=== PATIENT | male | born 1945 | race Caucasian/White ===

== ENCOUNTER 2017-06-22 19:30 | Inpatient (IN) | payer MEDICARE, OTHER ==
[~2017-06-22] VITALS: Ht 185.4 cm; Wt 112.2 kg
[~2017-06-22 19:30] MED LIST: ACET325T9 PO; ASPI-482 PO; CYAN1TAB20 SL; FERR325T3 PO; LISI-338 PO; METH4TAB7 PO; [UNRECOGNIZED DRUG - OTHER]
--- NOTE | 2017-06-22 19:35 | ED.ADGEN ---
Past History Past Medical History: Dementia, Depression, Hypertension Past Surgical History: Other Smoking: Non-smoker Alcohol Use: None Drug Use: None Adult General Chief Complaint Chief Complaint " I don't know.. they sent me here ... to get checked.." HPI HPI Patient is a 71 year old MALE who presents with above hx and complaints per his NH that he having mental status change, agitation, refusing meds. threats to hang himself or cut his throat and increased depression. No hx of recent falls. [facility] . Review of Systems Review of Systems No complaints Constitutional: Denies fever or chills [] Eyes: Denies change in visual acuity, redness, or eye pain [] HENT: Denies nasal congestion or sore throat [] Respiratory: Denies cough or shortness of breath [] Cardiovascular: No additional information not addressed in HPI [] GI: Denies abdominal pain, nausea, vomiting, bloody stools or diarrhea [] : Denies dysuria or hematuria [] Musculoskeletal: Denies back pain or joint pain [] Integument: Denies rash or skin lesions [] Neurologic: Denies headache, focal weakness or sensory changes [] Endocrine: Denies polyuria or polydipsia [] All other systems were reviewed and found to be within normal limits, except as documented in this note. Family History Family History Not currently available Current Medications Current Medications See Nursing for NH meds Allergies Allergies Allergies Coded Allergies Type Severity Reaction Last Updated Verified No Known Drug Allergies 06/24/13 No Physical Exam Physical Exam Constitutional: no acute distress, non-toxic appearance. [] HENT: Normocephalic, atraumatic, bilateral external ears normal, oropharynx moist, no oral exudates, nose normal. [] Eyes: PERRLA, EOMI, conjunctiva normal, no discharge. [] Neck: Normal range of motion, no tenderness, supple, no stridor. [] Cardiovascular:Heart rate regular rhythm, no murmur [] Lungs & Thorax: Bilateral breath sounds clear to auscultation [] Abdomen: Bowel sounds normal, soft, no tenderness, no masses, no pulsatile masses. [] Skin: Warm, dry, no erythema, no rash. [] Back: No tenderness, no CVA tenderness. [] Extremities: No tenderness, no cyanosis, no clubbing, ROM intact, no edema. [] Arthritic changes Neurologic: Alert and oriented , slow to respond to questions, no gross motor function or sensory function deficits from base line per NH, no focal deficits noted. [] Psychologic: Affect anxious, judgement lacks insight, mood depressed. Current Patient Data Vital Signs Vital Signs Date Time Temp Pulse Resp B/P (MAP) Pulse Ox O2 Delivery O2 Flow Rate FiO2 06/22/17 21:00 72 18 131/63 (85) 97 Room Air 06/22/17 19:52 97.8 Lab Results Laboratory Tests Test 06/22/17 19:55 06/22/17 20:35 White Blood Count 9.1 x10^3/uL (4.0-11.0) Red Blood Count 4.76 x10^6/uL (4.30-5.70) Hemoglobin 13.7 g/dL (13.0-17.5) Hematocrit 41.2 % (39.0-53.0) Mean Corpuscular Volume 87 fL (79-100) Mean Corpuscular Hemoglobin 29 pg (25-35) Mean Corpuscular Hemoglobin Concent 33 g/dL (31-37) Red Cell Distribution Width 14.7 % (11.5-14.5) H Platelet Count 256 x10^3/uL (140-400) Neutrophils (%) (Auto) 60 % (31-73) Lymphocytes (%) (Auto) 28 % (24-48) Monocytes (%) (Auto) 10 % (0-9) H Eosinophils (%) (Auto) 1 % (0-3) Basophils (%) (Auto) 1 % (0-3) Neutrophils # (Auto) 5.4 x10^3uL (1.8-7.7) Lymphocytes # (Auto) 2.5 x10^3/uL (1.0-4.8) Monocytes # (Auto) 0.9 x10^3/uL (0.0-1.1) Eosinophils # (Auto) 0.1 x10^3/uL (0.0-0.7) Basophils # (Auto) 0.1 x10^3/uL (0.0-0.2) Sodium Level 135 mmol/L (136-145) L Potassium Level 5.0 mmol/L (3.5-5.1) Chloride Level 101 mmol/L (98-107) Carbon Dioxide Level 23 mmol/L (21-32) Anion Gap 11 (6-14) Blood Urea Nitrogen 67 mg/dL (8-26) H Creatinine 1.7 mg/dL (0.7-1.3) H Estimated GFR (Cockcroft-Gault) 39.8 Glucose Level 128 mg/dL (70-99) H Calcium Level 9.8 mg/dL (8.5-10.1) Magnesium Level 1.8 mg/dL (1.8-2.4) Total Bilirubin 0.5 mg/dL (0.2-1.0) Direct Bilirubin 0.1 mg/dL (0.0-0.2) Aspartate Amino Transferase (AST) 14 U/L (15-37) L Alanine Aminotransferase (ALT) 21 U/L (16-63) Alkaline Phosphatase 76 U/L (46-116) Troponin I Quantitative < 0.017 ng/mL (0-0.055) TN-Pww-M-Type Natriuretic Peptide 103 pg/mL (0-124) Total Protein 8.1 g/dL (6.4-8.2) Albumin 3.7 g/dL (3.4-5.0) Urine Collection Type Unknown Urine Color Yellow Urine Clarity Clear Urine pH 5.0 Urine Specific [place] 1.015 Urine Protein Neg (NEG-TRACE) Urine Glucose (UA) Neg mg/dL (NEG) Urine Ketones (Stick) Neg mg/dL (NEG) Urine Blood Neg (NEG) Urine Nitrite Neg (NEG) Urine Bilirubin Neg (NEG) Urine Urobilinogen Dipstick 0.2 mg/dL (0.2 mg/dL) Urine Leukocyte Esterase Neg (NEG) Urine RBC 1-2 /HPF (0-2) Urine WBC Occ /HPF (0-4) Urine Squamous Epithelial Cells Few /LPF Urine Bacteria 0 /HPF (0-FEW) Urine Hyaline Casts Mod /HPF Urine Mucus Mod /LPF Urine Opiates Screen Neg (NEG) Urine Methadone Screen Neg (NEG) Urine Barbiturates Neg (NEG) Urine Phencyclidine Screen Neg (NEG) Urine Amphetamine/Methamphetamine Neg (NEG) Urine Benzodiazepines Screen Neg (NEG) Urine Cocaine Screen Neg (NEG) Urine Cannabinoids Screen Neg (NEG) Urine Ethyl Alcohol Neg (NEG) EKG EKG My interpretation of EKG shows a sinus rhythm with leftward axis and incomplete right bundle branch block. Nonspecific anterior septal changes.[] Radiology/Procedures Radiology/Procedures My interpretation of CXR shows Cardiomegaly, atelectasis, DJD[] Course & Med Decision Making Course & Med Decision Making Pertinent Labs and Imaging studies reviewed. (See chart for details) Pt. to be admitted to Dr. Rubio. [facility] [] Final Impression Final Impression 1. Mental status change 2. Depression 3. Suicidal ideation 4. Autism 5. Hypertension 6. History of prostate cancer 7. Agitation 8. Dehydration Problems: Dragon Disclaimer Dragon Disclaimer This electronic medical record was generated, in whole or in part, using a voice recognition dictation system. GERALD CUBA MD Jun 22, 2017 19:35
[2017-06-22 20:24] LABS: BASO # 0.1 x10^3/uL (0.0-0.2); BASO % 1 % (0-3); EOS # 0.1 x10^3/uL (0.0-0.7); EOS % 1 % (0-3); HEMATOCRIT 41.2 % (39.0-53.0); HEMOGLOBIN 13.7 g/dL (13.0-17.5); LYMPH # 2.5 x10^3/uL (1.0-4.8); LYMPH % 28 % (24-48); MEAN CORPUSCULAR HEMOGLOBIN 29 pg (25-35); MEAN CORPUSCULAR HGB CONC 33 g/dL (31-37); MEAN CORPUSCULAR VOLUME 87 fL (79-100); MONO # 0.9 x10^3/uL (0.0-1.1); MONO % 10 % (0-9); NEUT # 5.4 x10^3uL (1.8-7.7); NEUT % 60 % (31-73); PLATELET COUNT 256 x10^3/uL (140-400); RED BLOOD COUNT 4.76 x10^6/uL (4.30-5.70); RED CELL DISTRIBUTION WIDTH 14.7 % (11.5-14.5); WHITE BLOOD COUNT 9.1 x10^3/uL (4.0-11.0)
[2017-06-22 20:37] LABS: ALBUMIN 3.7 g/dL (3.4-5.0); CALCIUM 9.8 mg/dL (8.5-10.1); CREATININE 1.7 mg/dL (0.7-1.3); DIRECT BILIRUBIN 0.1 mg/dL (0.0-0.2); GFR 39.8; MAGNESIUM 1.8 mg/dL (1.8-2.4); TOTAL BILIRUBIN 0.5 mg/dL (0.2-1.0); TOTAL PROTEIN 8.1 g/dL (6.4-8.2)
[2017-06-22 21:13] LABS: AMPHETAMINE/METHAMPHETAMINE NEG (NEG); BARBITURATES NEG (NEG); BENZODIAZEPINES NEG (NEG); CANNABINOIDS NEG (NEG); COCAINE NEG (NEG); METHADONE NEG (NEG); OPIATES NEG (NEG); PHENCYCLIDINE NEG (NEG)
[2017-06-22 21:24] LABS: BILIRUBIN,URINE NEG (NEG); CLARITY,URINE CLEAR; COLOR,URINE YELLOW; GLUCOSE,URINE NEG (NEG)
[2017-06-22 21:25] LABS: BACTERIA,URINE 0 /HPF (0-FEW); HYALINE CASTS, URINE MOD /HPF; NITRITE,URINE NEG (NEG); SQUAMOUS EPITHELIAL CELL,UR FEW /LPF; UROBILINOGEN,URINE 0.2 mg/dL (0.2 mg/dL); WBC,URINE OCC /HPF (0-4)
[2017-06-22] MEDS ORDERED: CETI10TA22 PO (22:16)
[2017-06-22] MEDS ORDERED: POTA10CA PO (22:16)
[2017-06-22] MEDS ORDERED: SERT50TA PO (22:16)
[2017-06-22] MEDS ORDERED: METO-239 PO (22:16)
[2017-06-22] MEDS ORDERED: CHOL20002 PO (22:16)
[2017-06-22] MEDS ORDERED: ACET325T9 PO (22:16)
[2017-06-22] MEDS ORDERED: LISI-334 PO (22:16)
[2017-06-22] MEDS ORDERED: BISA10SU2 RC (22:16)
[2017-06-22] MEDS ORDERED: MAGN2400 PO (22:16)
[2017-06-22] MEDS ORDERED: SIMV20TA3 PO (22:16)
[2017-06-22] MEDS ORDERED: FLUO20CA16 PO (22:16)
[2017-06-22] MEDS ORDERED: ATOR10TA60 PO (22:16)
[2017-06-22] MEDS ORDERED: MAG30ORA PO (22:16)
[2017-06-22] MEDS ORDERED: MIRA50TA PO (22:16)
[2017-06-22] MEDS ORDERED: CALC500T13 PO (22:16)
[2017-06-22] MEDS ORDERED: HYDR25TA9 PO (22:16)
[2017-06-22] MEDS ORDERED: TRAZ-90 PO (22:16)
[2017-06-22] MEDS ORDERED: METHYL SALICYLATE/MENTHOL TOPICAL OINTMENT 29GM TUBE. TP PRN (22:45)
[2017-06-22] MEDS ORDERED: MAG HYDROX/AL HYDROX/SIMETH 30 ML ORAL.SUSP PO PRN (22:45)
[2017-06-22] MEDS ORDERED: MAGNESIUM HYDROXIDE 2,400 MG/30 ML ORAL.SUSP. PO PRN (22:45)
[2017-06-22] MEDS ORDERED: BISACODYL 10 MG SUPP.RECT RC PRN (23:00)
[2017-06-22] MEDS ORDERED: ACETAMINOPHEN 325 MG TABLET PO PRN (23:00)
[2017-06-22] MEDS ORDERED: MAG HYDROX PO PRN (23:00)
[2017-06-22] MEDS ORDERED: NON FORMULARY ITEM (Magnesium Hydroxide (Milk Of Magnesia) 2,400 MG) PO PRN (23:00)
[2017-06-22] MEDS ORDERED: SIMETH PO PRN (23:00)
[2017-06-22] MEDS ORDERED: AL HYDROX PO PRN (23:00)
[2017-06-22 23:16] VITALS: BP 131/69
--- NOTE | 2017-06-22 23:19 | EKG ---
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
[2017-06-23 05:47] VITALS: BP 97/58
--- NOTE | 2017-06-23 07:25 | RAD ---
Single view chest 06/22/2017 Clinical indication: Mental status change, shortness of air. Comparison: Single view chest 06/24/2013. Findings: Mild enlargement of the cardiac silhouette without pulmonary venous congestion. Mild bibasilar atelectasis or scarring. No pleural effusion or pneumothorax. Impression: Stable examination of the chest with cardiomegaly and bibasilar atelectasis or scarring.
[2017-06-23] MEDS: POTASSIUM CHLORIDE 10 MEQ TABLET.ER. PO SCH (08:10)
[2017-06-23] MEDS: LISINOPRIL 20 MG TABLET PO SCH ×2 (08:11→20:07)
[2017-06-23] MEDS: METOPROLOL TART IMMED RELEASE 25 MG TABLET PO SCH ×2 (08:11→20:06)
[2017-06-23] MEDS: hydroCHLOROthiazide 25 MG TABLET PO SCH (08:12)
[2017-06-23] MEDS: CHOLECALCIFEROL (VITAMIN D3) 1,000 UNIT TABLET PO SCH (08:15)
[2017-06-23] MEDS: ACETAMINOPHEN 325 MG TABLET PO SCH (08:15)
[2017-06-23] MEDS: CALCIUM CARBONATE 500 MG TABLET PO SCH (08:15)
[2017-06-23] MEDS: MIRABEGRON 25 MG TAB.ER.24H PO SCH (08:55)
[2017-06-23] MEDS ORDERED: FLUoxetine HCL 20 MG CAPSULE PO SCH (09:00)
[2017-06-23] MEDS ORDERED: PNEUMOC CONJ VACC 13-VALENT 0.5 ML DISP.SYRIN. VAX IM ONE (09:00)
[2017-06-23] MEDS ORDERED: FLU VACC QS2017-18 (36MOS+)/PF 0.5 ML SYRINGE. VAX IM ONE (09:00)
[2017-06-23] MEDS ORDERED: SERTRALINE 50 MG TABLET. PO SCH (09:00)
[2017-06-23] MEDS ORDERED: PNEUMOC CONJ VACC 23-VALENT 0.5 ML VIAL. VAX IM ONE (09:00)
[2017-06-23 16:17] VITALS: BP 130/55
[2017-06-23 20:08] LABS: HEMOGLOBIN A1C 5.8 % (4.8-5.6); THYROXINE 9.1 ug/dL (4.5-12.0)
[2017-06-23] MEDS: ATORVASTATIN CALCIUM 10 MG TABLET. PO SCH (20:10)
[2017-06-23] MEDS: CETIRIZINE HCL 10 MG TABLET PO SCH (20:10)
[2017-06-23] MEDS: traZODone 100 MG TABLET. PO SCH (20:10)
--- NOTE | 2017-06-23 20:13 | PDOC ---
Exam Note: Brian Note: Please also refer to the separate dictated note~for this date of service dictated separately.~Patient seen individually. Discussed the patient with Nursing staff reviewed the chart.~Reviewed interim history and current functioning. Reviewed vital signs,~Labs/ Radiology~and current medications noted below. Continue current treatment with the changes noted in the dictated addendum note Assessment: Vital Signs: Vital Signs Date Time Temp Pulse Resp B/P (MAP) Pulse Ox O2 Delivery O2 Flow Rate FiO2 06/23/17 20:07 106 97/57 06/23/17 16:17 97.6 18 95 Room Air I&O Intake and Output 06/23/17 07:00 # Bowel Movements 1 Labs: Laboratory Tests Test 06/22/17 20:35 Urine Collection Type Unknown Urine Color Yellow Urine Clarity Clear Urine pH 5.0 Urine Specific [place] 1.015 Urine Protein Neg (NEG-TRACE) Urine Glucose (UA) Neg mg/dL (NEG) Urine Ketones (Stick) Neg mg/dL (NEG) Urine Blood Neg (NEG) Urine Nitrite Neg (NEG) Urine Bilirubin Neg (NEG) Urine Urobilinogen Dipstick 0.2 mg/dL (0.2 mg/dL) Urine Leukocyte Esterase Neg (NEG) Urine RBC 1-2 /HPF (0-2) Urine WBC Occ /HPF (0-4) Urine Squamous Epithelial Cells Few /LPF Urine Bacteria 0 /HPF (0-FEW) Urine Hyaline Casts Mod /HPF Urine Mucus Mod /LPF Urine Opiates Screen Neg (NEG) Urine Methadone Screen Neg (NEG) Urine Barbiturates Neg (NEG) Urine Phencyclidine Screen Neg (NEG) Urine Amphetamine/Methamphetamine Neg (NEG) Urine Benzodiazepines Screen Neg (NEG) Urine Cocaine Screen Neg (NEG) Urine Cannabinoids Screen Neg (NEG) Urine Ethyl Alcohol Neg (NEG) Current Medications: Meds: Current Medications Acetaminophen (Tylenol) 650 mg PRN Q6HRS PRN PO PAIN / TEMP; Start 06/22/17 at 22:45 Multi-Ingredient Ointment (Analgesic [place]) 1 kermit PRN QID PRN TP MUSCLE PAIN; Start 06/22/17 at 22:45 Al Hydroxide/Mg Hydroxide (Mylanta Plus Xs) 15 ml PRN AFTMEALHC PRN PO DYSPEPSIA; Start 06/22/17 at 22:45 Magnesium Hydroxide (Milk Of Magnesia) 2,400 mg PRN QHS PRN PO CONSTIPATION; Start 06/22/17 at 22:45 Fluoxetine HCl (PROzac) 20 mg DAILY PO Last administered on 06/23/17at 08:15; Start 06/23/17 at 09:00; Stop 06/23/17 at 19:29; Status DC Sertraline HCl (Zoloft) 50 mg DAILY PO Last administered on 06/23/17at 08:11; Start 06/23/17 at 09:00; Stop 06/23/17 at 19:29; Status DC Trazodone HCl (Desyrel) 100 mg HS PO Last administered on 06/23/17at 20:10; Start 06/23/17 at 21:00 Acetaminophen (Tylenol) 650 mg DAILY PO Last administered on 06/23/17at 08:15; Start 06/23/17 at 09:00 Acetaminophen (Tylenol) 650 mg PRN Q4HRS PRN PO PAIN / TEMP; Start 06/22/17 at 23:00; Status UNV Atorvastatin Calcium (Lipitor) 10 mg QHS PO Last administered on 06/23/17at 20: 10; Start 06/23/17 at 21:00 Bisacodyl (Dulcolax Supp) 10 mg PRN DAILY PRN RC CONSTIPATION; Start 06/22/17 at 23:00 Calcium Carbonate/ Glycine (Oscal) 1,000 mg DAILY PO Last administered on at 08:15; Start 06/23/17 at 09:00 Cetirizine HCl (ZyrTEC) 10 mg HS PO Last administered on 06/23/17at 20:10; Start 06/23/17 at 21:00 Hydrochlorothiazide (Hydrodiuril) 25 mg DAILY PO ; Start 06/23/17 at 09:00 Lisinopril (Prinivil) 20 mg BID PO ; Start 06/23/17 at 09:00 Metoprolol Tartrate (Lopressor) 12.5 mg BID PO ; Start 06/23/17 at 09:00 Simvastatin (Zocor) 20 mg HS PO ; Start 06/23/17 at 21:00; Status UNV Vitamin D (Vitamin D3) 2,000 unit DAILY PO Last administered on 06/23/17at 08:15 ; Start 06/23/17 at 09:00 Non-Formulary Medication 30 ml PRN Q4HRS PRN PO DYSPEPSIA; Start 06/22/17 at 23 :00; Status UNV Non-Formulary Medication 2,400 mg PRN DAILY PRN PO CONSTIPATION; Start at 23:00; Status UNV Non-Formulary Medication 50 mg DAILY PO ; Start 06/23/17 at 09:00; Status UNV Potassium Chloride (Klor-Con) 10 meq DAILYWBKFT PO Last administered on at 08:10; Start 06/23/17 at 08:00 Influenza Virus Vaccine Quadrival (Fluarix Quad 1346-6016 Syringe) 0.5 ml ONCE ONCE VAX IM Last administered on 06/23/17at 09:50; Start 06/23/17 at 09:00; Stop 06/23/17 at 09:01; Status DC Pneumoccal 13-Valent Conj Vacc (Prevnar 13) 0.5 ml ONCE ONCE VAX IM ; Start at 09:00; Stop 06/23/17 at 09:01; Status UNV Pneumococcal Polyvalent Vaccine (Pneumovax 23) 0.5 ml ONCE ONCE VAX IM Last administered on 06/23/17at 09:51; Start 06/23/17 at 09:00; Stop 06/23/17 at 09:01 ; Status DC Duloxetine HCl (Cymbalta) 30 mg DAILY PO ; Start 06/24/17 at 09:00 Active Scripts Active Reported Milk Of Magnesia (Magnesium Hydroxide) 2,400 Mg/10 Ml Oral.susp 2,400 Mg PO PRN DAILY PRN Bisacodyl 10 Mg Supp.rect 10 Mg RC PRN DAILY PRN Mag-Al Plus Suspension (Mag Hydrox/Al Hydrox/Simeth) 30 Ml Oral.susp 30 Ml PO PRN Q4HRS PRN Tylenol (Acetaminophen) 325 Mg Tablet 650 Mg PO PRN Q4HRS PRN Metoprolol Succinate ( Xl ) (Metoprolol Succinate) 25 Mg Tab.er.24h 12.5 Mg PO BID Lisinopril 20 Mg Tablet 20 Mg PO BID Vitamin D-3 (Cholecalciferol (Vitamin D3)) 2,000 Unit Tablet 2,000 Unit PO DAILY Potassium Chloride 10 Meq Capsule.er 10 Meq PO DAILY Oyster Shell Calcium (Calcium Carbonate) 500 Mg Tablet 1,000 Mg PO DAILY Myrbetriq (Mirabegron) 50 Mg Tab.er.24h 50 Mg PO DAILY Hydrochlorothiazide Tablet (Hydrochlorothiazide) 25 Mg Tablet 25 Mg PO DAILY Atorvastatin Calcium 10 Mg Tablet 10 Mg PO QHS Zyrtec (Cetirizine Hcl) 10 Mg Tablet 10 Mg PO HS Simvastatin 20 Mg Tablet 20 Mg PO HS Trazodone Hcl 100 Mg Tablet 100 Mg PO HS Zoloft (Sertraline Hcl) 50 Mg Tablet 50 Mg PO DAILY Prozac (Fluoxetine Hcl) 20 Mg Capsule 20 Mg PO DAILY Tylenol (Acetaminophen) 325 Mg Tablet 650 Mg PO DAILY I have reviewed the current psychotropics carefully including drug interactions. Risk benefit ratio favors no change other than as noted in my dictated progress note. Diagnosis: Problems: (1) Depression (2) Benign essential hypertension (3) Anxiety disorder (4) Major depressive disorder, recurrent episode (5) Asperger's disorder NADIRA ELLIS MD Jun 23, 2017 20:13
[2017-06-23] MEDS ORDERED: SIMVASTATIN 20 MG TABLET PO SCH (21:00)
[2017-06-24 05:57] VITALS: BP 91/63
[2017-06-24] MEDS: ACETAMINOPHEN 325 MG TABLET PO SCH (08:11)
[2017-06-24] MEDS: CALCIUM CARBONATE 500 MG TABLET PO SCH (08:11)
[2017-06-24] MEDS: hydroCHLOROthiazide 25 MG TABLET PO SCH (08:11)
[2017-06-24] MEDS: CHOLECALCIFEROL (VITAMIN D3) 1,000 UNIT TABLET PO SCH (08:12)
[2017-06-24] MEDS: MIRABEGRON 25 MG TAB.ER.24H PO SCH (08:12)
[2017-06-24] MEDS: POTASSIUM CHLORIDE 10 MEQ TABLET.ER. PO SCH (08:12)
[2017-06-24] MEDS: LISINOPRIL 20 MG TABLET PO SCH (08:13)
[2017-06-24] MEDS: METOPROLOL TART IMMED RELEASE 25 MG TABLET PO SCH ×2 (08:13→19:48)
[2017-06-24] MEDS: DULoxetine HCL 30 MG CAPSULE.DR PO SCH (08:15)
[2017-06-24 16:17] VITALS: BP 94/57
[2017-06-24] MEDS ORDERED: CHOLECALCIFEROL (VITAMIN D3) 50,000 UNIT CAPSULE PO SCH (18:00)
[2017-06-24] MEDS: ATORVASTATIN CALCIUM 10 MG TABLET. PO SCH (19:47)
[2017-06-24] MEDS: CETIRIZINE HCL 10 MG TABLET PO SCH (19:47)
[2017-06-24] MEDS: traZODone 100 MG TABLET. PO SCH (19:47)
--- NOTE | 2017-06-24 20:35 | PDOC ---
Exam Note: Brian Note: Please also refer to the separate dictated note~for this date of service dictated separately.~Patient seen individually. Discussed the patient with Nursing staff reviewed the chart.~Reviewed interim history and current functioning. Reviewed vital signs,~Labs/ Radiology~and current medications noted below. Continue current treatment with the changes noted in the dictated addendum note Assessment: Vital Signs: Vital Signs Date Time Temp Pulse Resp B/P (MAP) Pulse Ox O2 Delivery O2 Flow Rate FiO2 06/24/17 16:17 98.0 82 18 94/57 (69) 92 06/23/17 16:17 Room Air I&O Intake and Output 06/24/17 07:00 Intake Total 720 ml Balance 720 ml Intake Oral 720 ml Current Medications: Meds: Current Medications Acetaminophen (Tylenol) 650 mg PRN Q6HRS PRN PO PAIN / TEMP; Start 06/22/17 at 22:45 Multi-Ingredient Ointment (Analgesic [place]) 1 kermit PRN QID PRN TP MUSCLE PAIN; Start 06/22/17 at 22:45 Al Hydroxide/Mg Hydroxide (Mylanta Plus Xs) 15 ml PRN AFTMEALHC PRN PO DYSPEPSIA; Start 06/22/17 at 22:45 Magnesium Hydroxide (Milk Of Magnesia) 2,400 mg PRN QHS PRN PO CONSTIPATION; Start 06/22/17 at 22:45 Fluoxetine HCl (PROzac) 20 mg DAILY PO Last administered on 06/23/17at 08:15; Start 06/23/17 at 09:00; Stop 06/23/17 at 19:29; Status DC Sertraline HCl (Zoloft) 50 mg DAILY PO Last administered on 06/23/17at 08:11; Start 06/23/17 at 09:00; Stop 06/23/17 at 19:29; Status DC Trazodone HCl (Desyrel) 100 mg HS PO Last administered on 06/24/17at 19:47; Start 06/23/17 at 21:00 Acetaminophen (Tylenol) 650 mg DAILY PO Last administered on 06/24/17at 08:11; Start 06/23/17 at 09:00 Acetaminophen (Tylenol) 650 mg PRN Q4HRS PRN PO PAIN / TEMP; Start 06/22/17 at 23:00; Status UNV Atorvastatin Calcium (Lipitor) 10 mg QHS PO Last administered on 06/24/17at 19: 47; Start 06/23/17 at 21:00 Bisacodyl (Dulcolax Supp) 10 mg PRN DAILY PRN RC CONSTIPATION; Start 06/22/17 at 23:00 Calcium Carbonate/ Glycine (Oscal) 1,000 mg DAILY PO Last administered on at 08:11; Start 06/23/17 at 09:00 Cetirizine HCl (ZyrTEC) 10 mg HS PO Last administered on 06/24/17at 19:47; Start 06/23/17 at 21:00 Hydrochlorothiazide (Hydrodiuril) 25 mg DAILY PO Last administered on at 08:11; Start 06/23/17 at 09:00 Lisinopril (Prinivil) 20 mg BID PO ; Start 06/23/17 at 09:00; Stop 06/24/17 at 18:04; Status DC Metoprolol Tartrate (Lopressor) 12.5 mg BID PO ; Start 06/23/17 at 09:00 Simvastatin (Zocor) 20 mg HS PO ; Start 06/23/17 at 21:00; Status UNV Vitamin D (Vitamin D3) 2,000 unit DAILY PO Last administered on 06/24/17at 08:12 ; Start 06/23/17 at 09:00 Non-Formulary Medication 30 ml PRN Q4HRS PRN PO DYSPEPSIA; Start 06/22/17 at 23 :00; Status UNV Non-Formulary Medication 2,400 mg PRN DAILY PRN PO CONSTIPATION; Start at 23:00; Status UNV Non-Formulary Medication 50 mg DAILY PO ; Start 06/23/17 at 09:00; Status UNV Potassium Chloride (Klor-Con) 10 meq DAILYWBKFT PO Last administered on at 08:12; Start 06/23/17 at 08:00 Influenza Virus Vaccine Quadrival (Fluarix Quad [id number] Syringe) 0.5 ml ONCE ONCE VAX IM Last administered on 06/23/17at 09:50; Start 06/23/17 at 09:00; Stop 06/23/17 at 09:01; Status DC Pneumoccal 13-Valent Conj Vacc (Prevnar 13) 0.5 ml ONCE ONCE VAX IM ; Start at 09:00; Stop 06/23/17 at 09:01; Status UNV Pneumococcal Polyvalent Vaccine (Pneumovax 23) 0.5 ml ONCE ONCE VAX IM Last administered on 06/23/17at 09:51; Start 06/23/17 at 09:00; Stop 06/23/17 at 09:01 ; Status DC Duloxetine HCl (Cymbalta) 30 mg DAILY PO Last administered on 06/24/17at 08:15; Start 06/24/17 at 09:00 Vitamin D (Vitamin D3) 50,000 unit WEEKLY PO ; Start 06/24/17 at 18:00; Stop at 18:38; Status DC Lisinopril (Prinivil) 20 mg DAILY PO ; Start 06/25/17 at 09:00 Vitamin D (Vitamin D3) 50,000 unit WEEKLY PO ; Start 06/24/17 at 20:00 Active Scripts Active Reported Milk Of Magnesia (Magnesium Hydroxide) 2,400 Mg/10 Ml Oral.susp 2,400 Mg PO PRN DAILY PRN Bisacodyl 10 Mg Supp.rect 10 Mg RC PRN DAILY PRN Mag-Al Plus Suspension (Mag Hydrox/Al Hydrox/Simeth) 30 Ml Oral.susp 30 Ml PO PRN Q4HRS PRN Tylenol (Acetaminophen) 325 Mg Tablet 650 Mg PO PRN Q4HRS PRN Metoprolol Succinate ( Xl ) (Metoprolol Succinate) 25 Mg Tab.er.24h 12.5 Mg PO BID Lisinopril 20 Mg Tablet 20 Mg PO BID Vitamin D-3 (Cholecalciferol (Vitamin D3)) 2,000 Unit Tablet 2,000 Unit PO DAILY Potassium Chloride 10 Meq Capsule.er 10 Meq PO DAILY Oyster Shell Calcium (Calcium Carbonate) 500 Mg Tablet 1,000 Mg PO DAILY Myrbetriq (Mirabegron) 50 Mg Tab.er.24h 50 Mg PO DAILY Hydrochlorothiazide Tablet (Hydrochlorothiazide) 25 Mg Tablet 25 Mg PO DAILY Atorvastatin Calcium 10 Mg Tablet 10 Mg PO QHS Zyrtec (Cetirizine Hcl) 10 Mg Tablet 10 Mg PO HS Simvastatin 20 Mg Tablet 20 Mg PO HS Trazodone Hcl 100 Mg Tablet 100 Mg PO HS Zoloft (Sertraline Hcl) 50 Mg Tablet 50 Mg PO DAILY Prozac (Fluoxetine Hcl) 20 Mg Capsule 20 Mg PO DAILY Tylenol (Acetaminophen) 325 Mg Tablet 650 Mg PO DAILY I have reviewed the current psychotropics carefully including drug interactions. Risk benefit ratio favors no change other than as noted in my dictated progress note. Diagnosis: Problems: (1) Depression (2) Anxiety disorder (3) Major depressive disorder, recurrent episode (4) Asperger's disorder NADIRA ELLIS MD Jun 24, 2017 20:35
[2017-06-24] MEDS: CHOLECALCIFEROL (VITAMIN D3) 50,000 UNIT CAPSULE PO SCH (20:44)
--- NOTE | 2017-06-24 23:07 | HP ---
ADMIT DATE: 06/22/2017 PSYCHIATRIC ADMISSION HISTORY/EVALUATION IDENTIFYING DATA: The patient is a 71-year-old male referred to us from [facility] by Dr. Nicholas Salgado, his primary care physician, on account of threatening to choke himself and cut his throat. He has been calling out, tearful, sad, depressed, refusing cares, and has had 4-pound weight loss in the recent past. Symptoms have been worsening for the past week. He has been on one-on-one status and has failed outpatient psychiatric and psychological interventions resulting in this referral. CHIEF COMPLAINT: "Yes, I am depressed, wanted to end my life." HISTORY OF PRESENT ILLNESS: The patient presents with worsening symptoms of depression, feeling hopeless, helpless, worthless, complains of poor appetite drop in weight, sleep disturbance has been on one-on-one status. He appears paranoid. Previously he has a diagnosis of pervasive developmental disorder as well. No clear history of bipolar disorder or homicidal ideation. Cognitively, he is reasonably intact. Does have some short-term memory deficits. PAST MEDICAL HISTORY: Positive for osteoarthritis, hypertension, obesity, impaired ambulation, in wheelchair, hyperlipidemia, overactive bladder, prostate cancer. DIET: Regular. CODE STATUS: DNR. ALLERGIES: Negative. He is in wheelchair assisted x 2 for transfer. CURRENT PSYCHOTROPICS: Prozac 20 mg a day, Zoloft 50 mg a day, trazodone 100 mg p.o. at bedtime. FAMILY HISTORY: Noncontributory. SOCIAL HISTORY: No history of alcohol or drug abuse, physical, sexual, or elder abuse history is noted. Not known to be a perpetrator. MENTAL STATUS EXAMINATION: The patient is oriented to himself and situation. Speech moderate latency, often responses monosyllabic. Abstraction fair, computation impaired, language function intact. Mood and affect is depressed, somewhat paranoid. Intellect average. Insight limited, judgment marginal, language function intact. IMPRESSION: Major depressive disorder, recurrent, rule out psychotic features; cognitive disorder, unspecified; anxiety disorder, unspecified; history of autistic spectrum disorder; insomnia. Rest diagnoses as above. PLAN: Admit to Geropsychiatry Unit at [facility]. I will see the patient daily individually from a psychiatric standpoint. Medical followup per Dr. Moody/Dr. Lee. Continue the patient on his current psychotropics. Consider changing the Prozac and Zoloft to Cymbalta, may need to augment with Abilify if needed. Also Risperdal if psychotic symptoms are evident. Make further adjustments as clinically indicated. MAN Rubi ELLIS MD DR: CHRISTIANO/marilyn JOB#: [id number] / [id number]
[2017-06-25 05:45] VITALS: BP 102/63
[2017-06-25] MEDS: ACETAMINOPHEN 325 MG TABLET PO SCH (07:40)
[2017-06-25] MEDS: POTASSIUM CHLORIDE 10 MEQ TABLET.ER. PO SCH (07:41)
[2017-06-25] MEDS: DULoxetine HCL 30 MG CAPSULE.DR PO SCH (07:41)
[2017-06-25] MEDS: CHOLECALCIFEROL (VITAMIN D3) 1,000 UNIT TABLET PO SCH (07:41)
[2017-06-25] MEDS: CALCIUM CARBONATE 500 MG TABLET PO SCH (07:42)
[2017-06-25] MEDS: hydroCHLOROthiazide 25 MG TABLET PO SCH (07:42)
[2017-06-25] MEDS: MIRABEGRON 25 MG TAB.ER.24H PO SCH (07:42)
[2017-06-25] MEDS: METOPROLOL TART IMMED RELEASE 25 MG TABLET PO SCH ×2 (07:43→21:00)
[2017-06-25] MEDS ORDERED: LISINOPRIL 20 MG TABLET PO SCH (09:00)
--- NOTE | 2017-06-25 12:43 | CONS ---
DATE OF CONSULTATION: 06/24/2017 CONSULT FOR MEDICATION MANAGEMENT HISTORY OF PRESENT ILLNESS: The patient is a 71-year-old male patient, a resident at [facility], who was brought to the Emergency Room with mental status changes, agitation, refusing medication, threatening to hang himself or cut his throat, and with increased depression. He has no history of recent falls. The patient's [facility], is [place] resident. Apparently, he was admitted with similar presentation in June 2013. PAST MEDICAL HISTORY: Significant for hypertension, anemia, hyperlipidemia, osteoarthritis, prostate cancer. PAST SURGICAL HISTORY: Tonsillectomy. FAMILY HISTORY: Noncontributory. SOCIAL HISTORY: The patient has been a resident at [facility]. He used to live in an apartment on his own. He does not smoke, drink alcohol or use any recreational drugs. 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 ALLERGIES: He has no known drug allergies. MEDICATIONS: He is currently on the following medications: Acetaminophen 650 mg every 4 hours as needed, atorvastatin calcium 10 mg at bedtime, bisacodyl 10 mg suppository rectally as needed for constipation, calcium carbonate 1000 mg daily, cetirizine or Zyrtec 10 mg at bedtime, cholecalciferol, vitamin D2 2000 international unit once a day, fluoxetine or Prozac 20 mg daily, hydrochlorothiazide 25 mg once a day, lisinopril 20 mg twice a day, magnesium hydroxide or milk of magnesia 30 mL p.o. daily p.r.n., metoprolol succinate 25 mg once a day, Myrbetriq 50 mg once a day, potassium chloride 10 mEq once a day, sertraline 50 mg at bedtime, simvastatin 20 mg at bedtime and trazodone 100 mg at bedtime. REVIEW OF SYSTEMS: Unobtainable. PHYSICAL EXAMINATION: GENERAL: When I examined him this afternoon, he was resting flat, comfortably in bed, in no apparent respiratory distress, somewhat pale, but no jaundice, cyanosis, or thyromegaly. No jugular venous distension. No limb edema. VITAL SIGNS: His heart rate was 82, blood pressure was 94/57, temperature was 98, respiratory rate was 18, and oxygen saturation was 92%. HEAD, EYES, EARS, NOSE AND THROAT: Showed normocephalic, atraumatic. NECK: Supple. HEART: Showed normal first and second sounds. No gallop, rub or murmur. CHEST: Clear to auscultation. No crepitation or rhonchi. ABDOMEN: Distended, soft, nontender. NEUROLOGIC: He was awake, alert, responding appropriately. Cranial nerves intact. He moves upper extremities without difficulty. Has functional paraplegia. He is actually [employer] lift. LABORATORY DATA: Showed a white cell count of 9100, hemoglobin 13.7, hematocrit 42, MCV 87 and platelet count of 256,000. His serum sodium was 135, potassium 5, chloride 101, bicarbonate 23, anion gap of 11, BUN 67, creatinine 1.7, estimated GFR was 39 mL per minute. His glucose was 128, calcium was 9.8, magnesium 1.8. Total bilirubin, AST, ALT, alkaline phosphatase were normal. Total protein was 8.1, albumin 3.7. His TSH is normal. Urinalysis was essentially unremarkable. Toxic screen was negative. His hemoglobin A1c was 5.8. Serum iron 73, TIBC was 258 and percent saturation was 29. His triglycerides were 128, cholesterol was 147, LDL was 79, VLDL was 25, HDL was 43 and the ratio was 3. His vitamin B12 was 540 and 25-hydroxy vitamin D is 24 and total T4 was 9.1, total T3 was 96. ASSESSMENT: So from a medical point of view, the patient has multiple medical problems including hypertension, hyperlipidemia, osteoarthritis, prostate cancer. He also has impaired kidney function. His BUN is 67, creatinine was 1.7. His vitamin D is low also at 24. PLAN: My plan is to start him on ergocalciferol 50,000 units once a week. He is on hydrochlorothiazide as well as lisinopril. He takes a 20 mg twice a day. I will cut down that to only once a day and repeat his lab work and might have to cut down further than that. Thank you, Dr. Rubio for allowing me to participate in the care of this patient. DANK SALAZAR MD DR: ESTEBAN/marilyn JOB#: [id number] / [id number]
[2017-06-25] MEDS ORDERED: IV NORMAL SALINE 1,000ML 1,000 ML IV ONE (16:00)
[2017-06-25 16:20] VITALS: BP 117/73
--- NOTE | 2017-06-25 18:49 | PN ---
DATE: 06/23/2017 This late entry 06/23/2017 covers elements not covered in my initial note 06/23/2017. SUBJECTIVE: I met with the patient evening of 06/23/2017. The patient slept 4-1/2 hours previous evening, withdrawn, but as I questioned him, he knew the year was 2017, knew the name of the president. Appetite is poor, isolative, cursing at times. REVIEW OF SYSTEMS: Ambulation impaired, in wheelchair. No CV, , pulmonary, eye system symptoms on review. MENTAL STATUS EXAMINATION: Oriented to himself and situation. Eye contact is poor. Speech coherent, low in volume. Abstraction fair, computation impaired, language function intact. Mood and affect depressed. LABORATORY DATA: Reviewed. IMPRESSION: Major depressive disorder with psychotic features; Asperger syndrome; adjustment disorder with depressed mood and anxiety. PLAN: Change the Prozac and Zoloft to Cymbalta 30 mg a day. Maintain trazodone 100 mg at bedtime. Make further adjustments as clinically indicated. MAN Rubi ELLIS MD DR: CHRISTIANO/marilyn JOB#: [id number] / [id number]
[2017-06-25 19:30] VITALS: BP 133/75
--- NOTE | 2017-06-25 20:11 | PDOC ---
Exam Note: Brian Note: Please also refer to the separate dictated note~for this date of service dictated separately.~Patient seen individually. Discussed the patient with Nursing staff reviewed the chart.~Reviewed interim history and current functioning. Reviewed vital signs,~Labs/ Radiology~and current medications noted below. Continue current treatment with the changes noted in the dictated addendum note Assessment: Vital Signs: Vital Signs Date Time Temp Pulse Resp B/P (MAP) Pulse Ox O2 Delivery O2 Flow Rate FiO2 06/25/17 16:20 97.9 93 17 117/73 (88) 92 06/23/17 16:17 Room Air I&O Intake and Output 06/25/17 07:00 Intake Total 960 ml Balance 960 ml Intake Oral 960 ml Current Medications: Meds: Current Medications Acetaminophen (Tylenol) 650 mg PRN Q6HRS PRN PO PAIN / TEMP; Start 06/22/17 at 22:45 Multi-Ingredient Ointment (Analgesic [place]) 1 kermit PRN QID PRN TP MUSCLE PAIN; Start 06/22/17 at 22:45 Al Hydroxide/Mg Hydroxide (Mylanta Plus Xs) 15 ml PRN AFTMEALHC PRN PO DYSPEPSIA; Start 06/22/17 at 22:45 Magnesium Hydroxide (Milk Of Magnesia) 2,400 mg PRN QHS PRN PO CONSTIPATION; Start 06/22/17 at 22:45 Fluoxetine HCl (PROzac) 20 mg DAILY PO Last administered on 06/23/17at 08:15; Start 06/23/17 at 09:00; Stop 06/23/17 at 19:29; Status DC Sertraline HCl (Zoloft) 50 mg DAILY PO Last administered on 06/23/17at 08:11; Start 06/23/17 at 09:00; Stop 06/23/17 at 19:29; Status DC Trazodone HCl (Desyrel) 100 mg HS PO Last administered on 06/24/17at 19:47; Start 06/23/17 at 21:00 Acetaminophen (Tylenol) 650 mg DAILY PO Last administered on 06/25/17at 07:40; Start 06/23/17 at 09:00 Acetaminophen (Tylenol) 650 mg PRN Q4HRS PRN PO PAIN / TEMP; Start 06/22/17 at 23:00; Status UNV Atorvastatin Calcium (Lipitor) 10 mg QHS PO Last administered on 06/24/17at 19: 47; Start 06/23/17 at 21:00 Bisacodyl (Dulcolax Supp) 10 mg PRN DAILY PRN RC CONSTIPATION; Start 06/22/17 at 23:00 Calcium Carbonate/ Glycine (Oscal) 1,000 mg DAILY PO Last administered on at 07:42; Start 06/23/17 at 09:00 Cetirizine HCl (ZyrTEC) 10 mg HS PO Last administered on 06/24/17at 19:47; Start 06/23/17 at 21:00 Hydrochlorothiazide (Hydrodiuril) 25 mg DAILY PO Last administered on at 08:11; Start 06/23/17 at 09:00; Stop 06/25/17 at 17:16; Status DC Lisinopril (Prinivil) 20 mg BID PO ; Start 06/23/17 at 09:00; Stop 06/24/17 at 18:04; Status DC Metoprolol Tartrate (Lopressor) 12.5 mg BID PO ; Start 06/23/17 at 09:00 Simvastatin (Zocor) 20 mg HS PO ; Start 06/23/17 at 21:00; Status UNV Vitamin D (Vitamin D3) 2,000 unit DAILY PO Last administered on 06/25/17at 07:41 ; Start 06/23/17 at 09:00 Non-Formulary Medication 30 ml PRN Q4HRS PRN PO DYSPEPSIA; Start 06/22/17 at 23 :00; Status UNV Non-Formulary Medication 2,400 mg PRN DAILY PRN PO CONSTIPATION; Start at 23:00; Status UNV Non-Formulary Medication 50 mg DAILY PO ; Start 06/23/17 at 09:00; Status UNV Potassium Chloride (Klor-Con) 10 meq DAILYWBKFT PO Last administered on at 07:41; Start 06/23/17 at 08:00 Influenza Virus Vaccine Quadrival (Fluarix Quad [id number] Syringe) 0.5 ml ONCE ONCE VAX IM Last administered on 06/23/17at 09:50; Start 06/23/17 at 09:00; Stop 06/23/17 at 09:01; Status DC Pneumoccal 13-Valent Conj Vacc (Prevnar 13) 0.5 ml ONCE ONCE VAX IM ; Start at 09:00; Stop 06/23/17 at 09:01; Status UNV Pneumococcal Polyvalent Vaccine (Pneumovax 23) 0.5 ml ONCE ONCE VAX IM Last administered on 06/23/17at 09:51; Start 06/23/17 at 09:00; Stop 06/23/17 at 09:01 ; Status DC Duloxetine HCl (Cymbalta) 30 mg DAILY PO Last administered on 06/25/17at 07:41; Start 06/24/17 at 09:00 Vitamin D (Vitamin D3) 50,000 unit WEEKLY PO ; Start 06/24/17 at 18:00; Stop at 18:38; Status DC Lisinopril (Prinivil) 20 mg DAILY PO ; Start 06/25/17 at 09:00; Stop 06/25/17 at 17:16; Status DC Vitamin D (Vitamin D3) 50,000 unit WEEKLY PO Last administered on 06/24/17at 20: 44; Start 06/24/17 at 20:00 Sodium Chloride 1,000 ml @ 1,000 mls/hr 1X ONCE IV Last administered on at 16:00; Start 06/25/17 at 16:00; Stop 06/25/17 at 17:00; Status DC Lisinopril (Prinivil) 10 mg DAILY PO ; Start 06/26/17 at 09:00 Active Scripts Active Reported Milk Of Magnesia (Magnesium Hydroxide) 2,400 Mg/10 Ml Oral.susp 2,400 Mg PO PRN DAILY PRN Bisacodyl 10 Mg Supp.rect 10 Mg RC PRN DAILY PRN Mag-Al Plus Suspension (Mag Hydrox/Al Hydrox/Simeth) 30 Ml Oral.susp 30 Ml PO PRN Q4HRS PRN Tylenol (Acetaminophen) 325 Mg Tablet 650 Mg PO PRN Q4HRS PRN Metoprolol Succinate ( Xl ) (Metoprolol Succinate) 25 Mg Tab.er.24h 12.5 Mg PO BID Lisinopril 20 Mg Tablet 20 Mg PO BID Vitamin D-3 (Cholecalciferol (Vitamin D3)) 2,000 Unit Tablet 2,000 Unit PO DAILY Potassium Chloride 10 Meq Capsule.er 10 Meq PO DAILY Oyster Shell Calcium (Calcium Carbonate) 500 Mg Tablet 1,000 Mg PO DAILY Myrbetriq (Mirabegron) 50 Mg Tab.er.24h 50 Mg PO DAILY Hydrochlorothiazide Tablet (Hydrochlorothiazide) 25 Mg Tablet 25 Mg PO DAILY Atorvastatin Calcium 10 Mg Tablet 10 Mg PO QHS Zyrtec (Cetirizine Hcl) 10 Mg Tablet 10 Mg PO HS Simvastatin 20 Mg Tablet 20 Mg PO HS Trazodone Hcl 100 Mg Tablet 100 Mg PO HS Zoloft (Sertraline Hcl) 50 Mg Tablet 50 Mg PO DAILY Prozac (Fluoxetine Hcl) 20 Mg Capsule 20 Mg PO DAILY Tylenol (Acetaminophen) 325 Mg Tablet 650 Mg PO DAILY I have reviewed the current psychotropics carefully including drug interactions. Risk benefit ratio favors no change other than as noted in my dictated progress note. Diagnosis: Problems: (1) Depression (2) Benign essential hypertension (3) Anxiety disorder (4) Major depressive disorder, recurrent episode (5) Asperger's disorder NADIRA ELLIS MD Jun 25, 2017 20:11
[2017-06-25] MEDS: traZODone 100 MG TABLET. PO SCH (20:29)
[2017-06-25] MEDS: CETIRIZINE HCL 10 MG TABLET PO SCH (20:29)
[2017-06-25] MEDS: ATORVASTATIN CALCIUM 10 MG TABLET. PO SCH (20:30)
[2017-06-26 06:21] VITALS: BP 114/72
[2017-06-26] MEDS: POTASSIUM CHLORIDE 10 MEQ TABLET.ER. PO SCH (08:45)
[2017-06-26] MEDS: DULoxetine HCL 30 MG CAPSULE.DR PO SCH (08:45)
[2017-06-26] MEDS: MIRABEGRON 25 MG TAB.ER.24H PO SCH (08:52)
[2017-06-26] MEDS: ACETAMINOPHEN 325 MG TABLET PO SCH (08:53)
[2017-06-26] MEDS: CHOLECALCIFEROL (VITAMIN D3) 1,000 UNIT TABLET PO SCH (08:53)
[2017-06-26] MEDS: CALCIUM CARBONATE 500 MG TABLET PO SCH (08:53)
[2017-06-26] MEDS: METOPROLOL TART IMMED RELEASE 25 MG TABLET PO SCH ×2 (09:00→20:13)
[2017-06-26] MEDS: LISINOPRIL 10 MG TABLET PO SCH (09:00)
[2017-06-26 16:05] VITALS: BP 96/56
[2017-06-26] MEDS: ATORVASTATIN CALCIUM 10 MG TABLET. PO SCH (20:12)
[2017-06-26] MEDS: traZODone 100 MG TABLET. PO SCH (20:12)
[2017-06-26] MEDS: CETIRIZINE HCL 10 MG TABLET PO SCH (20:13)
--- NOTE | 2017-06-26 20:14 | PDOC ---
Exam Note: Brian Note: Please also refer to the separate dictated note~for this date of service dictated separately.~Patient seen individually. Discussed the patient with Nursing staff reviewed the chart.~Reviewed interim history and current functioning. Reviewed vital signs,~Labs/ Radiology~and current medications noted below. Continue current treatment with the changes noted in the dictated addendum note Assessment: Vital Signs: Vital Signs Date Time Temp Pulse Resp B/P (MAP) Pulse Ox O2 Delivery O2 Flow Rate FiO2 06/26/17 16:05 97.5 97 18 96/56 (69) 95 06/23/17 16:17 Room Air I&O Intake and Output 06/26/17 07:00 Intake Total 720 ml Balance 720 ml Intake Oral 720 ml # Voids 1 Current Medications: Meds: Current Medications Acetaminophen (Tylenol) 650 mg PRN Q6HRS PRN PO PAIN / TEMP; Start 06/22/17 at 22:45 Multi-Ingredient Ointment (Analgesic [place]) 1 kermit PRN QID PRN TP MUSCLE PAIN; Start 06/22/17 at 22:45 Al Hydroxide/Mg Hydroxide (Mylanta Plus Xs) 15 ml PRN AFTMEALHC PRN PO DYSPEPSIA; Start 06/22/17 at 22:45 Magnesium Hydroxide (Milk Of Magnesia) 2,400 mg PRN QHS PRN PO CONSTIPATION; Start 06/22/17 at 22:45 Fluoxetine HCl (PROzac) 20 mg DAILY PO Last administered on 06/23/17at 08:15; Start 06/23/17 at 09:00; Stop 06/23/17 at 19:29; Status DC Sertraline HCl (Zoloft) 50 mg DAILY PO Last administered on 06/23/17at 08:11; Start 06/23/17 at 09:00; Stop 06/23/17 at 19:29; Status DC Trazodone HCl (Desyrel) 100 mg HS PO Last administered on 06/25/17at 20:29; Start 06/23/17 at 21:00 Acetaminophen (Tylenol) 650 mg DAILY PO Last administered on 06/26/17at 08:53; Start 06/23/17 at 09:00 Acetaminophen (Tylenol) 650 mg PRN Q4HRS PRN PO PAIN / TEMP; Start 06/22/17 at 23:00; Status UNV Atorvastatin Calcium (Lipitor) 10 mg QHS PO Last administered on 06/25/17at 20: 30; Start 06/23/17 at 21:00 Bisacodyl (Dulcolax Supp) 10 mg PRN DAILY PRN RC CONSTIPATION; Start 06/22/17 at 23:00 Calcium Carbonate/ Glycine (Oscal) 1,000 mg DAILY PO Last administered on at 08:53; Start 06/23/17 at 09:00 Cetirizine HCl (ZyrTEC) 10 mg HS PO Last administered on 06/25/17at 20:29; Start 06/23/17 at 21:00 Hydrochlorothiazide (Hydrodiuril) 25 mg DAILY PO Last administered on at 08:11; Start 06/23/17 at 09:00; Stop 06/25/17 at 17:16; Status DC Lisinopril (Prinivil) 20 mg BID PO ; Start 06/23/17 at 09:00; Stop 06/24/17 at 18:04; Status DC Metoprolol Tartrate (Lopressor) 12.5 mg BID PO ; Start 06/23/17 at 09:00 Simvastatin (Zocor) 20 mg HS PO ; Start 06/23/17 at 21:00; Status UNV Vitamin D (Vitamin D3) 2,000 unit DAILY PO Last administered on 06/26/17at 08:53 ; Start 06/23/17 at 09:00 Non-Formulary Medication 30 ml PRN Q4HRS PRN PO DYSPEPSIA; Start 06/22/17 at 23 :00; Status UNV Non-Formulary Medication 2,400 mg PRN DAILY PRN PO CONSTIPATION; Start at 23:00; Status UNV Non-Formulary Medication 50 mg DAILY PO ; Start 06/23/17 at 09:00; Status UNV Potassium Chloride (Klor-Con) 10 meq DAILYWBKFT PO Last administered on at 08:45; Start 06/23/17 at 08:00 Influenza Virus Vaccine Quadrival (Fluarix Quad [id number] Syringe) 0.5 ml ONCE ONCE VAX IM Last administered on 06/23/17at 09:50; Start 06/23/17 at 09:00; Stop 06/23/17 at 09:01; Status DC Pneumoccal 13-Valent Conj Vacc (Prevnar 13) 0.5 ml ONCE ONCE VAX IM ; Start at 09:00; Stop 06/23/17 at 09:01; Status UNV Pneumococcal Polyvalent Vaccine (Pneumovax 23) 0.5 ml ONCE ONCE VAX IM Last administered on 06/23/17at 09:51; Start 06/23/17 at 09:00; Stop 06/23/17 at 09:01 ; Status DC Duloxetine HCl (Cymbalta) 30 mg DAILY PO Last administered on 06/26/17at 08:45; Start 06/24/17 at 09:00 Vitamin D (Vitamin D3) 50,000 unit WEEKLY PO ; Start 06/24/17 at 18:00; Stop at 18:38; Status DC Lisinopril (Prinivil) 20 mg DAILY PO ; Start 06/25/17 at 09:00; Stop 06/25/17 at 17:16; Status DC Vitamin D (Vitamin D3) 50,000 unit WEEKLY PO Last administered on 06/24/17at 20: 44; Start 06/24/17 at 20:00 Sodium Chloride 1,000 ml @ 1,000 mls/hr 1X ONCE IV Last administered on at 16:00; Start 06/25/17 at 16:00; Stop 06/25/17 at 17:00; Status DC Lisinopril (Prinivil) 10 mg DAILY PO ; Start 06/26/17 at 09:00 Active Scripts Active Reported Milk Of Magnesia (Magnesium Hydroxide) 2,400 Mg/10 Ml Oral.susp 2,400 Mg PO PRN DAILY PRN Bisacodyl 10 Mg Supp.rect 10 Mg RC PRN DAILY PRN Mag-Al Plus Suspension (Mag Hydrox/Al Hydrox/Simeth) 30 Ml Oral.susp 30 Ml PO PRN Q4HRS PRN Tylenol (Acetaminophen) 325 Mg Tablet 650 Mg PO PRN Q4HRS PRN Metoprolol Succinate ( Xl ) (Metoprolol Succinate) 25 Mg Tab.er.24h 12.5 Mg PO BID Lisinopril 20 Mg Tablet 20 Mg PO BID Vitamin D-3 (Cholecalciferol (Vitamin D3)) 2,000 Unit Tablet 2,000 Unit PO DAILY Potassium Chloride 10 Meq Capsule.er 10 Meq PO DAILY Oyster Shell Calcium (Calcium Carbonate) 500 Mg Tablet 1,000 Mg PO DAILY Myrbetriq (Mirabegron) 50 Mg Tab.er.24h 50 Mg PO DAILY Hydrochlorothiazide Tablet (Hydrochlorothiazide) 25 Mg Tablet 25 Mg PO DAILY Atorvastatin Calcium 10 Mg Tablet 10 Mg PO QHS Zyrtec (Cetirizine Hcl) 10 Mg Tablet 10 Mg PO HS Simvastatin 20 Mg Tablet 20 Mg PO HS Trazodone Hcl 100 Mg Tablet 100 Mg PO HS Zoloft (Sertraline Hcl) 50 Mg Tablet 50 Mg PO DAILY Prozac (Fluoxetine Hcl) 20 Mg Capsule 20 Mg PO DAILY Tylenol (Acetaminophen) 325 Mg Tablet 650 Mg PO DAILY I have reviewed the current psychotropics carefully including drug interactions. Risk benefit ratio favors no change other than as noted in my dictated progress note. Diagnosis: Problems: (1) Depression (2) Benign essential hypertension (3) Anxiety disorder (4) Major depressive disorder, recurrent episode (5) Asperger's disorder NADIRA ELLIS MD Jun 26, 2017 20:14
--- NOTE | 2017-06-27 00:23 | PN ---
DATE: 06/24/2017 This late entry, date of service 06/24/2017, covers elements not covered in my initial note 06/24/2017. I met with the patient evening of 06/24/2017. Overall, per nursing report, the patient has had a good day, somewhat withdrawn, isolative and remains in his wheelchair, irritable at times. REVIEW OF SYSTEMS: No CV, , pulmonary, eye system symptoms on review. Ambulation impaired. Sits with his head bent forward. MENTAL STATUS EXAM: Oriented to himself and situation. Speech, low in rate and rhythm, low in volume, often responses monosyllabic. Abstraction fair, computation impaired, language function intact, attention span short. Mood and affect still depressed. LABORATORY DATA: Reviewed. IMPRESSION: Major depressive disorder with psychotic features and partial remission. PLAN: Continue Cymbalta 30 mg a day, trazodone 100 mg at bedtime. Adjust further as clinically indicated. MAN Rubi ELLIS MD DR: CHRISTIANO/marilyn JOB#: [id number] / [id number]
--- NOTE | 2017-06-27 00:36 | PN ---
DATE: 06/25/2017 PSYCHIATRIC PROGRESS NOTE This is a late entry for 06/25/2017, covers elements not covered in my initial note of 06/25/2017. SUBJECTIVE: I met with the patient the evening of 06/25/2017. The patient is quite withdrawn. Blood pressure was low, received normal saline 1 bag, BP medications were decreased, still yelling out at times. REVIEW OF SYSTEMS: Ambulation impaired, in wheelchair. No CV, , pulmonary, eye system symptoms on review. MENTAL STATUS EXAM: Seated with the head bent forward. Speech clear, coherent, often responses monosyllabic. Abstraction fair, computation impaired, language function intact. Mood and affect still depressed. No suicidal or homicidal ideation. LABORATORY DATA: Reviewed. IMPRESSION: Major depressive disorder; anxiety disorder, unspecified. PLAN: Continue Cymbalta and trazodone at current dosage. May need to increase Cymbalta. NADIRA ELLIS MD DR: CHRISTIANO/marilyn JOB#: [id number] / [id number]
[2017-06-27 06:20] VITALS: BP 97/59
[2017-06-27 07:43] LABS: BASO % 1 % (0-3); EOS # 0.2 x10^3/uL (0.0-0.7); EOS % 3 % (0-3); HEMATOCRIT 37.9 % (39.0-53.0); HEMOGLOBIN 12.7 g/dL (13.0-17.5); LYMPH % 29 % (24-48); MEAN CORPUSCULAR HEMOGLOBIN 29 pg (25-35); MEAN CORPUSCULAR HGB CONC 34 g/dL (31-37); MEAN CORPUSCULAR VOLUME 86 fL (79-100); MONO # 0.9 x10^3/uL (0.0-1.1); MONO % 13 % (0-9); NEUT # 3.7 x10^3uL (1.8-7.7); NEUT % 55 % (31-73); PLATELET COUNT 210 x10^3/uL (140-400); RED BLOOD COUNT 4.39 x10^6/uL (4.30-5.70); RED CELL DISTRIBUTION WIDTH 14.3 % (11.5-14.5); WHITE BLOOD COUNT 6.8 x10^3/uL (4.0-11.0)
[2017-06-27 07:55] LABS: ALBUMIN 3.4 g/dL (3.4-5.0); ALBUMIN/GLOBULIN RATIO 0.9 (1.0-1.7); CALCIUM 9.7 mg/dL (8.5-10.1); CREATININE 1.5 mg/dL (0.7-1.3); POTASSIUM 4.5 mmol/L (3.5-5.1); TOTAL BILIRUBIN 0.4 mg/dL (0.2-1.0); TOTAL PROTEIN 7.3 g/dL (6.4-8.2)
[2017-06-27] MEDS: METOPROLOL TART IMMED RELEASE 25 MG TABLET PO SCH ×2 (09:00→19:37)
[2017-06-27] MEDS: CALCIUM CARBONATE 500 MG TABLET PO SCH (09:51)
[2017-06-27] MEDS: ACETAMINOPHEN 325 MG TABLET PO SCH (09:52)
[2017-06-27] MEDS: LISINOPRIL 10 MG TABLET PO SCH (09:52)
[2017-06-27] MEDS: POTASSIUM CHLORIDE 10 MEQ TABLET.ER. PO SCH (09:58)
[2017-06-27] MEDS: CHOLECALCIFEROL (VITAMIN D3) 1,000 UNIT TABLET PO SCH (09:58)
[2017-06-27] MEDS: DULoxetine HCL 30 MG CAPSULE.DR PO SCH (09:59)
[2017-06-27] MEDS: MIRABEGRON 25 MG TAB.ER.24H PO SCH (10:00)
[2017-06-27] MEDS ORDERED: IV NORMAL SALINE 1,000ML 1,000 ML IV ONE (11:30)
[2017-06-27] MEDS: MAGNESIUM OXIDE 400 MG TABLET PO SCH ×2 (13:00→16:43)
[2017-06-27 16:33] VITALS: BP 111/64
[2017-06-27] MEDS: traZODone 100 MG TABLET. PO SCH (19:37)
[2017-06-27] MEDS: ATORVASTATIN CALCIUM 10 MG TABLET. PO SCH (19:37)
[2017-06-27] MEDS: CETIRIZINE HCL 10 MG TABLET PO SCH (19:38)
--- NOTE | 2017-06-27 20:17 | PDOC ---
Exam Note: Brian Note: Please also refer to the separate dictated note~for this date of service dictated separately.~Patient seen individually. Discussed the patient with Nursing staff reviewed the chart.~Reviewed interim history and current functioning. Reviewed vital signs,~Labs/ Radiology~and current medications noted below. Continue current treatment with the changes noted in the dictated addendum note Assessment: Vital Signs: Vital Signs Date Time Temp Pulse Resp B/P (MAP) Pulse Ox O2 Delivery O2 Flow Rate FiO2 06/27/17 19:37 198 111/64 06/27/17 16:33 97.9 20 98 Room Air I&O Intake and Output 06/27/17 07:00 Intake Total 840 ml Balance 840 ml Intake Oral 840 ml # Voids 1 Labs: Laboratory Tests Test 06/27/17 07:23 White Blood Count 6.8 x10^3/uL (4.0-11.0) Red Blood Count 4.39 x10^6/uL (4.30-5.70) Hemoglobin 12.7 g/dL (13.0-17.5) L Hematocrit 37.9 % (39.0-53.0) L Mean Corpuscular Volume 86 fL (79-100) Mean Corpuscular Hemoglobin 29 pg (25-35) Mean Corpuscular Hemoglobin Concent 34 g/dL (31-37) Red Cell Distribution Width 14.3 % (11.5-14.5) Platelet Count 210 x10^3/uL (140-400) Neutrophils (%) (Auto) 55 % (31-73) Lymphocytes (%) (Auto) 29 % (24-48) Monocytes (%) (Auto) 13 % (0-9) H Eosinophils (%) (Auto) 3 % (0-3) Basophils (%) (Auto) 1 % (0-3) Neutrophils # (Auto) 3.7 x10^3uL (1.8-7.7) Lymphocytes # (Auto) 2.0 x10^3/uL (1.0-4.8) Monocytes # (Auto) 0.9 x10^3/uL (0.0-1.1) Eosinophils # (Auto) 0.2 x10^3/uL (0.0-0.7) Basophils # (Auto) 0.0 x10^3/uL (0.0-0.2) Sodium Level 137 mmol/L (136-145) Potassium Level 4.5 mmol/L (3.5-5.1) Chloride Level 102 mmol/L (98-107) Carbon Dioxide Level 27 mmol/L (21-32) Anion Gap 8 (6-14) Blood Urea Nitrogen 57 mg/dL (8-26) H Creatinine 1.5 mg/dL (0.7-1.3) H Estimated GFR (Cockcroft-Gault) 46.0 BUN/Creatinine Ratio 38 (6-20) H Glucose Level 111 mg/dL (70-99) H Calcium Level 9.7 mg/dL (8.5-10.1) Magnesium Level 1.4 mg/dL (1.8-2.4) L Total Bilirubin 0.4 mg/dL (0.2-1.0) Aspartate Amino Transferase (AST) 14 U/L (15-37) L Alanine Aminotransferase (ALT) 20 U/L (16-63) Alkaline Phosphatase 71 U/L (46-116) Total Protein 7.3 g/dL (6.4-8.2) Albumin 3.4 g/dL (3.4-5.0) Albumin/Globulin Ratio 0.9 (1.0-1.7) L Current Medications: Meds: Current Medications Acetaminophen (Tylenol) 650 mg PRN Q6HRS PRN PO PAIN / TEMP; Start 06/22/17 at 22:45 Multi-Ingredient Ointment (Analgesic [place]) 1 kermit PRN QID PRN TP MUSCLE PAIN; Start 06/22/17 at 22:45 Al Hydroxide/Mg Hydroxide (Mylanta Plus Xs) 15 ml PRN AFTMEALHC PRN PO DYSPEPSIA; Start 06/22/17 at 22:45 Magnesium Hydroxide (Milk Of Magnesia) 2,400 mg PRN QHS PRN PO CONSTIPATION; Start 06/22/17 at 22:45 Fluoxetine HCl (PROzac) 20 mg DAILY PO Last administered on 06/23/17at 08:15; Start 06/23/17 at 09:00; Stop 06/23/17 at 19:29; Status DC Sertraline HCl (Zoloft) 50 mg DAILY PO Last administered on 06/23/17at 08:11; Start 06/23/17 at 09:00; Stop 06/23/17 at 19:29; Status DC Trazodone HCl (Desyrel) 100 mg HS PO Last administered on 06/27/17at 19:37; Start 06/23/17 at 21:00 Acetaminophen (Tylenol) 650 mg DAILY PO Last administered on 06/27/17at 09:52; Start 06/23/17 at 09:00 Acetaminophen (Tylenol) 650 mg PRN Q4HRS PRN PO PAIN / TEMP; Start 06/22/17 at 23:00; Status UNV Atorvastatin Calcium (Lipitor) 10 mg QHS PO Last administered on 06/27/17at 19: 37; Start 06/23/17 at 21:00 Bisacodyl (Dulcolax Supp) 10 mg PRN DAILY PRN RC CONSTIPATION; Start 06/22/17 at 23:00 Calcium Carbonate/ Glycine (Oscal) 1,000 mg DAILY PO Last administered on at 09:51; Start 06/23/17 at 09:00 Cetirizine HCl (ZyrTEC) 10 mg HS PO Last administered on 06/27/17at 19:38; Start 06/23/17 at 21:00 Hydrochlorothiazide (Hydrodiuril) 25 mg DAILY PO Last administered on at 08:11; Start 06/23/17 at 09:00; Stop 06/25/17 at 17:16; Status DC Lisinopril (Prinivil) 20 mg BID PO ; Start 06/23/17 at 09:00; Stop 06/24/17 at 18:04; Status DC Metoprolol Tartrate (Lopressor) 12.5 mg BID PO Last administered on 06/27/17at 19:37; Start 06/23/17 at 09:00 Simvastatin (Zocor) 20 mg HS PO ; Start 06/23/17 at 21:00; Status UNV Vitamin D (Vitamin D3) 2,000 unit DAILY PO Last administered on 06/27/17at 09:58 ; Start 06/23/17 at 09:00 Non-Formulary Medication 30 ml PRN Q4HRS PRN PO DYSPEPSIA; Start 06/22/17 at 23 :00; Status UNV Non-Formulary Medication 2,400 mg PRN DAILY PRN PO CONSTIPATION; Start at 23:00; Status UNV Non-Formulary Medication 50 mg DAILY PO ; Start 06/23/17 at 09:00; Status UNV Potassium Chloride (Klor-Con) 10 meq DAILYWBKFT PO Last administered on at 09:58; Start 06/23/17 at 08:00 Influenza Virus Vaccine Quadrival (Fluarix Quad [id number] Syringe) 0.5 ml ONCE ONCE VAX IM Last administered on 06/23/17at 09:50; Start 06/23/17 at 09:00; Stop 06/23/17 at 09:01; Status DC Pneumoccal 13-Valent Conj Vacc (Prevnar 13) 0.5 ml ONCE ONCE VAX IM ; Start at 09:00; Stop 06/23/17 at 09:01; Status UNV Pneumococcal Polyvalent Vaccine (Pneumovax 23) 0.5 ml ONCE ONCE VAX IM Last administered on 06/23/17at 09:51; Start 06/23/17 at 09:00; Stop 06/23/17 at 09:01 ; Status DC Duloxetine HCl (Cymbalta) 30 mg DAILY PO Last administered on 06/27/17at 09:59; Start 06/24/17 at 09:00; Stop 06/27/17 at 15:39; Status DC Vitamin D (Vitamin D3) 50,000 unit WEEKLY PO ; Start 06/24/17 at 18:00; Stop at 18:38; Status DC Lisinopril (Prinivil) 20 mg DAILY PO ; Start 06/25/17 at 09:00; Stop 06/25/17 at 17:16; Status DC Vitamin D (Vitamin D3) 50,000 unit WEEKLY PO Last administered on 06/24/17at 20: 44; Start 06/24/17 at 20:00 Sodium Chloride 1,000 ml @ 1,000 mls/hr 1X ONCE IV Last administered on at 16:00; Start 06/25/17 at 16:00; Stop 06/25/17 at 17:00; Status DC Lisinopril (Prinivil) 10 mg DAILY PO Last administered on 06/27/17at 09:52; Start 06/26/17 at 09:00 Sodium Chloride 1,000 ml @ 1,000 mls/hr 1X ONCE IV Last administered on at 12:46; Start 06/27/17 at 11:30; Stop 06/27/17 at 12:29; Status DC Magnesium Oxide (Magnesium Oxide) 400 mg BIDACLD PO Last administered on at 16:43; Start 06/27/17 at 11:30 Duloxetine HCl (Cymbalta) 60 mg DAILY PO ; Start 06/28/17 at 09:00 Active Scripts Active Reported Milk Of Magnesia (Magnesium Hydroxide) 2,400 Mg/10 Ml Oral.susp 2,400 Mg PO PRN DAILY PRN Bisacodyl 10 Mg Supp.rect 10 Mg RC PRN DAILY PRN Mag-Al Plus Suspension (Mag Hydrox/Al Hydrox/Simeth) 30 Ml Oral.susp 30 Ml PO PRN Q4HRS PRN Tylenol (Acetaminophen) 325 Mg Tablet 650 Mg PO PRN Q4HRS PRN Metoprolol Succinate ( Xl ) (Metoprolol Succinate) 25 Mg Tab.er.24h 12.5 Mg PO BID Lisinopril 20 Mg Tablet 20 Mg PO BID Vitamin D-3 (Cholecalciferol (Vitamin D3)) 2,000 Unit Tablet 2,000 Unit PO DAILY Potassium Chloride 10 Meq Capsule.er 10 Meq PO DAILY Oyster Shell Calcium (Calcium Carbonate) 500 Mg Tablet 1,000 Mg PO DAILY Myrbetriq (Mirabegron) 50 Mg Tab.er.24h 50 Mg PO DAILY Hydrochlorothiazide Tablet (Hydrochlorothiazide) 25 Mg Tablet 25 Mg PO DAILY Atorvastatin Calcium 10 Mg Tablet 10 Mg PO QHS Zyrtec (Cetirizine Hcl) 10 Mg Tablet 10 Mg PO HS Simvastatin 20 Mg Tablet 20 Mg PO HS Trazodone Hcl 100 Mg Tablet 100 Mg PO HS Zoloft (Sertraline Hcl) 50 Mg Tablet 50 Mg PO DAILY Prozac (Fluoxetine Hcl) 20 Mg Capsule 20 Mg PO DAILY Tylenol (Acetaminophen) 325 Mg Tablet 650 Mg PO DAILY I have reviewed the current psychotropics carefully including drug interactions. Risk benefit ratio favors no change other than as noted in my dictated progress note. Diagnosis: Problems: (1) Depression (2) Benign essential hypertension (3) Anxiety disorder (4) Major depressive disorder, recurrent episode (5) Asperger's disorder NADIRA ELLIS MD Jun 27, 2017 20:16
--- NOTE | 2017-06-28 00:48 | PN ---
DATE: 06/26/2017 This is a late entry for 06/26/2017, covers elements not covered in my initial note of 06/26/2017. SUBJECTIVE: I met with the patient the evening of 06/26/2017. The patient slept 7-1/2 hours previous evening, did well the previous night, had a good day, but somatically preoccupied, depressed, withdrawn, poor eye contact, still evident. Irritable at breakfast, slept off, other patient's attending yoga group morning of 06/26/2017. REVIEW OF SYSTEMS: Ambulation impaired, in wheelchair. No CV, , pulmonary, eye, ENT system symptoms on review. MENTAL STATUS EXAMINATION: Oriented to himself and situation. Speech moderate latency, often responses monosyllabic. Abstraction fair, computation impaired, language function intact, attention span short. Mood and affect still depressed. No suicidal or homicidal ideation. LABORATORY DATA: Reviewed. IMPRESSION: Major depressive disorder in partial remission. PLAN: Increase Cymbalta to 60 mg a day. Continue trazodone 100 mg at bedtime, may augment with Abilify. Adjust further as clinically indicated. MAN Rubi ELLIS MD DR: CHRISTIANO/marilyn JOB#: [id number] / [id number]
[2017-06-28 06:20] VITALS: BP 106/55
[2017-06-28 07:56] LABS: HEMATOCRIT 36.5 % (39.0-53.0); HEMOGLOBIN 12.2 g/dL (13.0-17.5); RED BLOOD COUNT 4.22 x10^6/uL (4.30-5.70); RED CELL DISTRIBUTION WIDTH 14.9 % (11.5-14.5); WHITE BLOOD COUNT 6.8 x10^3/uL (4.0-11.0)
[2017-06-28 08:20] LABS: ALBUMIN 3.2 g/dL (3.4-5.0); ALBUMIN/GLOBULIN RATIO 0.8 (1.0-1.7); CALCIUM 9.3 mg/dL (8.5-10.1); CREATININE 1.3 mg/dL (0.7-1.3); GFR 54.3; MAGNESIUM 1.5 mg/dL (1.8-2.4); POTASSIUM 4.6 mmol/L (3.5-5.1); TOTAL BILIRUBIN 0.3 mg/dL (0.2-1.0); TOTAL PROTEIN 7.1 g/dL (6.4-8.2)
[2017-06-28] MEDS: CALCIUM CARBONATE 500 MG TABLET PO SCH (08:29)
[2017-06-28] MEDS: POTASSIUM CHLORIDE 10 MEQ TABLET.ER. PO SCH (08:30)
[2017-06-28] MEDS: CHOLECALCIFEROL (VITAMIN D3) 1,000 UNIT TABLET PO SCH (08:30)
[2017-06-28] MEDS: ACETAMINOPHEN 325 MG TABLET PO SCH (08:31)
[2017-06-28] MEDS: MIRABEGRON 25 MG TAB.ER.24H PO SCH (08:33)
[2017-06-28] MEDS: DULoxetine HCL 30 MG CAPSULE.DR PO SCH (08:33)
[2017-06-28] MEDS: LISINOPRIL 10 MG TABLET PO SCH (09:00)
[2017-06-28] MEDS: METOPROLOL TART IMMED RELEASE 25 MG TABLET PO SCH ×2 (09:00→19:18)
[2017-06-28] MEDS: MAGNESIUM OXIDE 400 MG TABLET PO SCH ×2 (12:31→16:35)
[2017-06-28 15:48] VITALS: BP 106/76
[2017-06-28] MEDS: CETIRIZINE HCL 10 MG TABLET PO SCH (19:17)
[2017-06-28] MEDS: traZODone 100 MG TABLET. PO SCH (19:17)
[2017-06-28] MEDS: ATORVASTATIN CALCIUM 10 MG TABLET. PO SCH (19:18)
[2017-06-28] MEDS: DIVALPROEX ER 500 MG TAB.ER.24H PO SCH (19:32)
--- NOTE | 2017-06-28 20:01 | PDOC ---
Exam Note: Brian Note: Please also refer to the separate dictated note~for this date of service dictated separately.~Patient seen individually. Discussed the patient with Nursing staff reviewed the chart.~Reviewed interim history and current functioning. Reviewed vital signs,~Labs/ Radiology~and current medications noted below. Continue current treatment with the changes noted in the dictated addendum note Assessment: Vital Signs: Vital Signs Date Time Temp Pulse Resp B/P (MAP) Pulse Ox O2 Delivery O2 Flow Rate FiO2 06/28/17 15:48 97.3 94 18 106/76 (86) 95 06/27/17 16:33 Room Air I&O Intake and Output 06/28/17 07:00 Intake Total 1600 ml Balance 1600 ml Intake Oral 600 ml IV Total 1000 ml # Voids 1 Labs: Laboratory Tests Test 06/28/17 07:10 White Blood Count 6.8 x10^3/uL (4.0-11.0) Red Blood Count 4.22 x10^6/uL (4.30-5.70) L Hemoglobin 12.2 g/dL (13.0-17.5) L Hematocrit 36.5 % (39.0-53.0) L Mean Corpuscular Volume 86 fL (79-100) Mean Corpuscular Hemoglobin 29 pg (25-35) Mean Corpuscular Hemoglobin Concent 34 g/dL (31-37) Red Cell Distribution Width 14.9 % (11.5-14.5) H Platelet Count 206 x10^3/uL (140-400) Sodium Level 140 mmol/L (136-145) Potassium Level 4.6 mmol/L (3.5-5.1) Chloride Level 104 mmol/L (98-107) Carbon Dioxide Level 28 mmol/L (21-32) Anion Gap 8 (6-14) Blood Urea Nitrogen 45 mg/dL (8-26) H Creatinine 1.3 mg/dL (0.7-1.3) Estimated GFR (Cockcroft-Gault) 54.3 BUN/Creatinine Ratio 35 (6-20) H Glucose Level 102 mg/dL (70-99) H Calcium Level 9.3 mg/dL (8.5-10.1) Magnesium Level 1.5 mg/dL (1.8-2.4) L Total Bilirubin 0.3 mg/dL (0.2-1.0) Aspartate Amino Transferase (AST) 12 U/L (15-37) L Alanine Aminotransferase (ALT) 19 U/L (16-63) Alkaline Phosphatase 68 U/L (46-116) Total Protein 7.1 g/dL (6.4-8.2) Albumin 3.2 g/dL (3.4-5.0) L Albumin/Globulin Ratio 0.8 (1.0-1.7) L Current Medications: Meds: Current Medications Acetaminophen (Tylenol) 650 mg PRN Q6HRS PRN PO PAIN / TEMP; Start 06/22/17 at 22:45 Multi-Ingredient Ointment (Analgesic [place]) 1 kermit PRN QID PRN TP MUSCLE PAIN; Start 06/22/17 at 22:45 Al Hydroxide/Mg Hydroxide (Mylanta Plus Xs) 15 ml PRN AFTMEALHC PRN PO DYSPEPSIA; Start 06/22/17 at 22:45 Magnesium Hydroxide (Milk Of Magnesia) 2,400 mg PRN QHS PRN PO CONSTIPATION; Start 06/22/17 at 22:45 Fluoxetine HCl (PROzac) 20 mg DAILY PO Last administered on 06/23/17at 08:15; Start 06/23/17 at 09:00; Stop 06/23/17 at 19:29; Status DC Sertraline HCl (Zoloft) 50 mg DAILY PO Last administered on 06/23/17at 08:11; Start 06/23/17 at 09:00; Stop 06/23/17 at 19:29; Status DC Trazodone HCl (Desyrel) 100 mg HS PO Last administered on 06/28/17at 19:17; Start 06/23/17 at 21:00 Acetaminophen (Tylenol) 650 mg DAILY PO Last administered on 06/28/17at 08:31; Start 06/23/17 at 09:00 Acetaminophen (Tylenol) 650 mg PRN Q4HRS PRN PO PAIN / TEMP; Start 06/22/17 at 23:00; Status UNV Atorvastatin Calcium (Lipitor) 10 mg QHS PO Last administered on 06/28/17at 19: 18; Start 06/23/17 at 21:00 Bisacodyl (Dulcolax Supp) 10 mg PRN DAILY PRN RC CONSTIPATION; Start 06/22/17 at 23:00 Calcium Carbonate/ Glycine (Oscal) 1,000 mg DAILY PO Last administered on at 08:29; Start 06/23/17 at 09:00 Cetirizine HCl (ZyrTEC) 10 mg HS PO Last administered on 06/28/17at 19:17; Start 06/23/17 at 21:00 Hydrochlorothiazide (Hydrodiuril) 25 mg DAILY PO Last administered on at 08:11; Start 06/23/17 at 09:00; Stop 06/25/17 at 17:16; Status DC Lisinopril (Prinivil) 20 mg BID PO ; Start 06/23/17 at 09:00; Stop 06/24/17 at 18:04; Status DC Metoprolol Tartrate (Lopressor) 12.5 mg BID PO Last administered on 06/27/17at 19:37; Start 06/23/17 at 09:00 Simvastatin (Zocor) 20 mg HS PO ; Start 06/23/17 at 21:00; Status UNV Vitamin D (Vitamin D3) 2,000 unit DAILY PO Last administered on 06/28/17at 08:30 ; Start 06/23/17 at 09:00 Non-Formulary Medication 30 ml PRN Q4HRS PRN PO DYSPEPSIA; Start 06/22/17 at 23 :00; Status UNV Non-Formulary Medication 2,400 mg PRN DAILY PRN PO CONSTIPATION; Start at 23:00; Status UNV Non-Formulary Medication 50 mg DAILY PO ; Start 06/23/17 at 09:00; Status UNV Potassium Chloride (Klor-Con) 10 meq DAILYWBKFT PO Last administered on at 08:30; Start 06/23/17 at 08:00 Influenza Virus Vaccine Quadrival (Fluarix Quad [id number] Syringe) 0.5 ml ONCE ONCE VAX IM Last administered on 06/23/17at 09:50; Start 06/23/17 at 09:00; Stop 06/23/17 at 09:01; Status DC Pneumoccal 13-Valent Conj Vacc (Prevnar 13) 0.5 ml ONCE ONCE VAX IM ; Start at 09:00; Stop 06/23/17 at 09:01; Status UNV Pneumococcal Polyvalent Vaccine (Pneumovax 23) 0.5 ml ONCE ONCE VAX IM Last administered on 06/23/17at 09:51; Start 06/23/17 at 09:00; Stop 06/23/17 at 09:01 ; Status DC Duloxetine HCl (Cymbalta) 30 mg DAILY PO Last administered on 06/27/17at 09:59; Start 06/24/17 at 09:00; Stop 06/27/17 at 15:39; Status DC Vitamin D (Vitamin D3) 50,000 unit WEEKLY PO ; Start 06/24/17 at 18:00; Stop at 18:38; Status DC Lisinopril (Prinivil) 20 mg DAILY PO ; Start 06/25/17 at 09:00; Stop 06/25/17 at 17:16; Status DC Vitamin D (Vitamin D3) 50,000 unit WEEKLY PO Last administered on 06/24/17at 20: 44; Start 06/24/17 at 20:00 Sodium Chloride 1,000 ml @ 1,000 mls/hr 1X ONCE IV Last administered on at 16:00; Start 06/25/17 at 16:00; Stop 06/25/17 at 17:00; Status DC Lisinopril (Prinivil) 10 mg DAILY PO Last administered on 06/27/17at 09:52; Start 06/26/17 at 09:00 Sodium Chloride 1,000 ml @ 1,000 mls/hr 1X ONCE IV Last administered on at 12:46; Start 06/27/17 at 11:30; Stop 06/27/17 at 12:29; Status DC Magnesium Oxide (Magnesium Oxide) 400 mg BIDACLD PO Last administered on at 16:35; Start 06/27/17 at 11:30 Duloxetine HCl (Cymbalta) 60 mg DAILY PO Last administered on 06/28/17at 08:33; Start 06/28/17 at 09:00 Divalproex Sodium (Depakote Er) 500 mg QHS PO Last administered on 06/28/17at 19 :32; Start 06/28/17 at 21:00 Active Scripts Active Reported Milk Of Magnesia (Magnesium Hydroxide) 2,400 Mg/10 Ml Oral.susp 2,400 Mg PO PRN DAILY PRN Bisacodyl 10 Mg Supp.rect 10 Mg RC PRN DAILY PRN Mag-Al Plus Suspension (Mag Hydrox/Al Hydrox/Simeth) 30 Ml Oral.susp 30 Ml PO PRN Q4HRS PRN Tylenol (Acetaminophen) 325 Mg Tablet 650 Mg PO PRN Q4HRS PRN Metoprolol Succinate ( Xl ) (Metoprolol Succinate) 25 Mg Tab.er.24h 12.5 Mg PO BID Lisinopril 20 Mg Tablet 20 Mg PO BID Vitamin D-3 (Cholecalciferol (Vitamin D3)) 2,000 Unit Tablet 2,000 Unit PO DAILY Potassium Chloride 10 Meq Capsule.er 10 Meq PO DAILY Oyster Shell Calcium (Calcium Carbonate) 500 Mg Tablet 1,000 Mg PO DAILY Myrbetriq (Mirabegron) 50 Mg Tab.er.24h 50 Mg PO DAILY Hydrochlorothiazide Tablet (Hydrochlorothiazide) 25 Mg Tablet 25 Mg PO DAILY Atorvastatin Calcium 10 Mg Tablet 10 Mg PO QHS Zyrtec (Cetirizine Hcl) 10 Mg Tablet 10 Mg PO HS Simvastatin 20 Mg Tablet 20 Mg PO HS Trazodone Hcl 100 Mg Tablet 100 Mg PO HS Zoloft (Sertraline Hcl) 50 Mg Tablet 50 Mg PO DAILY Prozac (Fluoxetine Hcl) 20 Mg Capsule 20 Mg PO DAILY Tylenol (Acetaminophen) 325 Mg Tablet 650 Mg PO DAILY I have reviewed the current psychotropics carefully including drug interactions. Risk benefit ratio favors no change other than as noted in my dictated progress note. Diagnosis: Problems: (1) Depression (2) Benign essential hypertension (3) Anxiety disorder (4) Major depressive disorder, recurrent episode (5) Asperger's disorder NADIRA ELLIS MD Jun 28, 2017 20:01
--- NOTE | 2017-06-29 01:34 | PN ---
DATE: 06/27/2017 This is a late entry 06/27/2017 covers elements not covered in my initial note of 06/27/2017. SUBJECTIVE: I met with the patient evening of 06/27/2017. The patient had poor oral intake, was getting dehydrated, received 1 liter normal saline IV bolus. BUN 57. He has been depressed, irritable, sarcastic at times, cursing at his brother over the telephone and saying they should give him a gun to kill himself. REVIEW OF SYSTEMS: Ambulation impaired, in wheelchair. No CV, , pulmonary, eye, ENT system symptoms on review. MENTAL STATUS EXAM: Oriented to himself and situation. Speech moderate latency, often responses monosyllabic. Abstraction fair, computation impaired, language function intact. Mood and affect depressed, withdrawn. LABORATORY DATA: Reviewed. IMPRESSION: Major depressive disorder, recurrent; anxiety disorder, unspecified poor oral intake. Rest unchanged. PLAN: Continue current psychotropics, Cymbalta was increased to 60 mg a day. We may have to increase this further or augment with Wellbutrin or Abilify. MAN Rubi ELLIS MD DR: CHRISTIANO/marilyn JOB#: [id number] / [id number]
[2017-06-29 05:52] VITALS: BP 105/57
[2017-06-29] MEDS: POTASSIUM CHLORIDE 10 MEQ TABLET.ER. PO SCH (08:02)
[2017-06-29] MEDS: DULoxetine HCL 30 MG CAPSULE.DR PO SCH (08:02)
[2017-06-29] MEDS: CHOLECALCIFEROL (VITAMIN D3) 1,000 UNIT TABLET PO SCH (08:03)
[2017-06-29] MEDS: CALCIUM CARBONATE 500 MG TABLET PO SCH (08:04)
[2017-06-29] MEDS: MAGNESIUM OXIDE 400 MG TABLET PO SCH ×2 (08:04→16:34)
[2017-06-29] MEDS: ACETAMINOPHEN 325 MG TABLET PO SCH (08:05)
[2017-06-29] MEDS: MIRABEGRON 25 MG TAB.ER.24H PO SCH (08:06)
[2017-06-29] MEDS: LISINOPRIL 10 MG TABLET PO SCH (09:00)
[2017-06-29] MEDS: METOPROLOL TART IMMED RELEASE 25 MG TABLET PO SCH ×2 (09:00→20:17)
[2017-06-29 15:58] VITALS: BP 114/70
--- NOTE | 2017-06-29 19:52 | PDOC ---
Exam Note: Brian Note: Please also refer to the separate dictated note~for this date of service dictated separately.~Patient seen individually. Discussed the patient with Nursing staff reviewed the chart.~Reviewed interim history and current functioning. Reviewed vital signs,~Labs/ Radiology~and current medications noted below. Continue current treatment with the changes noted in the dictated addendum note Assessment: Vital Signs: Vital Signs Date Time Temp Pulse Resp B/P (MAP) Pulse Ox O2 Delivery O2 Flow Rate FiO2 06/29/17 15:58 99.1 100 20 114/70 (85) 96 06/27/17 16:33 Room Air I&O Intake and Output 06/29/17 07:00 Intake Total 1000 ml Balance 1000 ml Intake Oral 1000 ml # Voids 1 Current Medications: Meds: Current Medications Acetaminophen (Tylenol) 650 mg PRN Q6HRS PRN PO PAIN / TEMP; Start 06/22/17 at 22:45 Multi-Ingredient Ointment (Analgesic [place]) 1 kermit PRN QID PRN TP MUSCLE PAIN; Start 06/22/17 at 22:45 Al Hydroxide/Mg Hydroxide (Mylanta Plus Xs) 15 ml PRN AFTMEALHC PRN PO DYSPEPSIA; Start 06/22/17 at 22:45 Magnesium Hydroxide (Milk Of Magnesia) 2,400 mg PRN QHS PRN PO CONSTIPATION; Start 06/22/17 at 22:45 Fluoxetine HCl (PROzac) 20 mg DAILY PO Last administered on 06/23/17at 08:15; Start 06/23/17 at 09:00; Stop 06/23/17 at 19:29; Status DC Sertraline HCl (Zoloft) 50 mg DAILY PO Last administered on 06/23/17at 08:11; Start 06/23/17 at 09:00; Stop 06/23/17 at 19:29; Status DC Trazodone HCl (Desyrel) 100 mg HS PO Last administered on 06/28/17at 19:17; Start 06/23/17 at 21:00 Acetaminophen (Tylenol) 650 mg DAILY PO Last administered on 06/29/17at 08:05; Start 06/23/17 at 09:00 Acetaminophen (Tylenol) 650 mg PRN Q4HRS PRN PO PAIN / TEMP; Start 06/22/17 at 23:00; Status UNV Atorvastatin Calcium (Lipitor) 10 mg QHS PO Last administered on 06/28/17at 19: 18; Start 06/23/17 at 21:00 Bisacodyl (Dulcolax Supp) 10 mg PRN DAILY PRN RC CONSTIPATION; Start 06/22/17 at 23:00 Calcium Carbonate/ Glycine (Oscal) 1,000 mg DAILY PO Last administered on at 08:04; Start 06/23/17 at 09:00 Cetirizine HCl (ZyrTEC) 10 mg HS PO Last administered on 06/28/17at 19:17; Start 06/23/17 at 21:00 Hydrochlorothiazide (Hydrodiuril) 25 mg DAILY PO Last administered on at 08:11; Start 06/23/17 at 09:00; Stop 06/25/17 at 17:16; Status DC Lisinopril (Prinivil) 20 mg BID PO ; Start 06/23/17 at 09:00; Stop 06/24/17 at 18:04; Status DC Metoprolol Tartrate (Lopressor) 12.5 mg BID PO Last administered on 06/27/17at 19:37; Start 06/23/17 at 09:00 Simvastatin (Zocor) 20 mg HS PO ; Start 06/23/17 at 21:00; Status UNV Vitamin D (Vitamin D3) 2,000 unit DAILY PO Last administered on 06/29/17at 08:03 ; Start 06/23/17 at 09:00 Non-Formulary Medication 30 ml PRN Q4HRS PRN PO DYSPEPSIA; Start 06/22/17 at 23 :00; Status UNV Non-Formulary Medication 2,400 mg PRN DAILY PRN PO CONSTIPATION; Start at 23:00; Status UNV Non-Formulary Medication 50 mg DAILY PO ; Start 06/23/17 at 09:00; Status UNV Potassium Chloride (Klor-Con) 10 meq DAILYWBKFT PO Last administered on at 08:02; Start 06/23/17 at 08:00 Influenza Virus Vaccine Quadrival (Fluarix Quad [id number] Syringe) 0.5 ml ONCE ONCE VAX IM Last administered on 06/23/17at 09:50; Start 06/23/17 at 09:00; Stop 06/23/17 at 09:01; Status DC Pneumoccal 13-Valent Conj Vacc (Prevnar 13) 0.5 ml ONCE ONCE VAX IM ; Start at 09:00; Stop 06/23/17 at 09:01; Status UNV Pneumococcal Polyvalent Vaccine (Pneumovax 23) 0.5 ml ONCE ONCE VAX IM Last administered on 06/23/17at 09:51; Start 06/23/17 at 09:00; Stop 06/23/17 at 09:01 ; Status DC Duloxetine HCl (Cymbalta) 30 mg DAILY PO Last administered on 06/27/17at 09:59; Start 06/24/17 at 09:00; Stop 06/27/17 at 15:39; Status DC Vitamin D (Vitamin D3) 50,000 unit WEEKLY PO ; Start 06/24/17 at 18:00; Stop at 18:38; Status DC Lisinopril (Prinivil) 20 mg DAILY PO ; Start 06/25/17 at 09:00; Stop 06/25/17 at 17:16; Status DC Vitamin D (Vitamin D3) 50,000 unit WEEKLY PO Last administered on 06/24/17at 20: 44; Start 06/24/17 at 20:00 Sodium Chloride 1,000 ml @ 1,000 mls/hr 1X ONCE IV Last administered on at 16:00; Start 06/25/17 at 16:00; Stop 06/25/17 at 17:00; Status DC Lisinopril (Prinivil) 10 mg DAILY PO Last administered on 06/27/17at 09:52; Start 06/26/17 at 09:00 Sodium Chloride 1,000 ml @ 1,000 mls/hr 1X ONCE IV Last administered on at 12:46; Start 06/27/17 at 11:30; Stop 06/27/17 at 12:29; Status DC Magnesium Oxide (Magnesium Oxide) 400 mg BIDACLD PO Last administered on at 16:34; Start 06/27/17 at 11:30 Duloxetine HCl (Cymbalta) 60 mg DAILY PO Last administered on 06/29/17at 08:02; Start 06/28/17 at 09:00 Divalproex Sodium (Depakote Er) 500 mg QHS PO Last administered on 06/28/17at 19 :32; Start 06/28/17 at 21:00 Active Scripts Active Reported Milk Of Magnesia (Magnesium Hydroxide) 2,400 Mg/10 Ml Oral.susp 2,400 Mg PO PRN DAILY PRN Bisacodyl 10 Mg Supp.rect 10 Mg RC PRN DAILY PRN Mag-Al Plus Suspension (Mag Hydrox/Al Hydrox/Simeth) 30 Ml Oral.susp 30 Ml PO PRN Q4HRS PRN Tylenol (Acetaminophen) 325 Mg Tablet 650 Mg PO PRN Q4HRS PRN Metoprolol Succinate ( Xl ) (Metoprolol Succinate) 25 Mg Tab.er.24h 12.5 Mg PO BID Lisinopril 20 Mg Tablet 20 Mg PO BID Vitamin D-3 (Cholecalciferol (Vitamin D3)) 2,000 Unit Tablet 2,000 Unit PO DAILY Potassium Chloride 10 Meq Capsule.er 10 Meq PO DAILY Oyster Shell Calcium (Calcium Carbonate) 500 Mg Tablet 1,000 Mg PO DAILY Myrbetriq (Mirabegron) 50 Mg Tab.er.24h 50 Mg PO DAILY Hydrochlorothiazide Tablet (Hydrochlorothiazide) 25 Mg Tablet 25 Mg PO DAILY Atorvastatin Calcium 10 Mg Tablet 10 Mg PO QHS Zyrtec (Cetirizine Hcl) 10 Mg Tablet 10 Mg PO HS Simvastatin 20 Mg Tablet 20 Mg PO HS Trazodone Hcl 100 Mg Tablet 100 Mg PO HS Zoloft (Sertraline Hcl) 50 Mg Tablet 50 Mg PO DAILY Prozac (Fluoxetine Hcl) 20 Mg Capsule 20 Mg PO DAILY Tylenol (Acetaminophen) 325 Mg Tablet 650 Mg PO DAILY I have reviewed the current psychotropics carefully including drug interactions. Risk benefit ratio favors no change other than as noted in my dictated progress note. Diagnosis: Problems: (1) Depression (2) Benign essential hypertension (3) Anxiety disorder (4) Major depressive disorder, recurrent episode (5) Asperger's disorder NADIRA ELLIS MD Jun 29, 2017 19:52
[2017-06-29] MEDS: ATORVASTATIN CALCIUM 10 MG TABLET. PO SCH (20:04)
[2017-06-29] MEDS: traZODone 100 MG TABLET. PO SCH (20:04)
[2017-06-29] MEDS: DIVALPROEX ER 500 MG TAB.ER.24H PO SCH (20:14)
[2017-06-29] MEDS: CETIRIZINE HCL 10 MG TABLET PO SCH (20:14)
[2017-06-30 06:02] VITALS: BP 105/72
[2017-06-30] MEDS: CHOLECALCIFEROL (VITAMIN D3) 1,000 UNIT TABLET PO SCH (07:53)
[2017-06-30] MEDS: POTASSIUM CHLORIDE 10 MEQ TABLET.ER. PO SCH (07:53)
[2017-06-30] MEDS: DULoxetine HCL 30 MG CAPSULE.DR PO SCH (07:53)
[2017-06-30] MEDS: ACETAMINOPHEN 325 MG TABLET PO SCH (07:53)
[2017-06-30] MEDS: CALCIUM CARBONATE 500 MG TABLET PO SCH (07:54)
[2017-06-30] MEDS: METOPROLOL TART IMMED RELEASE 25 MG TABLET PO SCH ×2 (07:54→20:10)
[2017-06-30] MEDS: MIRABEGRON 25 MG TAB.ER.24H PO SCH (07:54)
[2017-06-30] MEDS: LISINOPRIL 10 MG TABLET PO SCH (07:54)
[2017-06-30] MEDS: MAGNESIUM OXIDE 400 MG TABLET PO SCH ×2 (13:32→18:22)
[2017-06-30 16:17] VITALS: BP 122/80
[2017-06-30] MEDS: traZODone 100 MG TABLET. PO SCH (20:01)
[2017-06-30] MEDS: CETIRIZINE HCL 10 MG TABLET PO SCH (20:01)
[2017-06-30] MEDS: DIVALPROEX ER 500 MG TAB.ER.24H PO SCH (20:01)
[2017-06-30] MEDS: ATORVASTATIN CALCIUM 10 MG TABLET. PO SCH (20:01)
[2017-07-01 05:55] VITALS: BP 108/68
--- NOTE | 2017-07-01 06:51 | PDOC ---
Exam Note: Brian Note: Please also refer to the separate dictated note~for this date of service dictated separately.~Patient seen individually. Discussed the patient with Nursing staff reviewed the chart.~Reviewed interim history and current functioning. Reviewed vital signs,~Labs/ Radiology~and current medications noted below. Continue current treatment with the changes noted in the dictated addendum note. This is a late entry for date of service Jun 30, 2017 Assessment: Vital Signs: VS - Last 72 Hours, by Label Date Time Temp Pulse Resp B/P (MAP) Pulse Ox O2 Delivery O2 Flow Rate FiO2 07/01/17 05:55 97.9 84 20 108/68 (81) 97 06/30/17 20:10 116 103/72 06/30/17 16:17 97.7 98 20 122/80 (94) 95 Room Air 06/30/17 07:54 82 105/72 06/30/17 07:54 82 105/72 06/30/17 06:02 97.6 82 16 105/72 (83) 95 06/29/17 20:17 100 173/71 06/29/17 15:58 99.1 100 20 114/70 (85) 96 06/29/17 09:00 85 105/57 06/29/17 09:00 85 105/57 06/29/17 05:52 97.7 85 20 105/57 (73) 96 06/28/17 15:48 97.3 94 18 106/76 (86) 95 06/28/17 09:00 76 106/55 Vital Signs Date Time Temp Pulse Resp B/P (MAP) Pulse Ox O2 Delivery O2 Flow Rate FiO2 07/01/17 05:55 97.9 84 20 108/68 (81) 97 06/30/17 16:17 Room Air I&O Intake and Output 07/01/17 07:00 Intake Total 1200 ml Balance 1200 ml Intake Oral 1200 ml # Bowel Movements 1 Current Medications: Meds: Current Medications Acetaminophen (Tylenol) 650 mg PRN Q6HRS PRN PO PAIN / TEMP; Start 06/22/17 at 22:45 Multi-Ingredient Ointment (Analgesic [place]) 1 kermit PRN QID PRN TP MUSCLE PAIN; Start 06/22/17 at 22:45 Al Hydroxide/Mg Hydroxide (Mylanta Plus Xs) 15 ml PRN AFTMEALHC PRN PO DYSPEPSIA; Start 06/22/17 at 22:45 Magnesium Hydroxide (Milk Of Magnesia) 2,400 mg PRN QHS PRN PO CONSTIPATION; Start 06/22/17 at 22:45 Fluoxetine HCl (PROzac) 20 mg DAILY PO Last administered on 06/23/17at 08:15; Start 06/23/17 at 09:00; Stop 06/23/17 at 19:29; Status DC Sertraline HCl (Zoloft) 50 mg DAILY PO Last administered on 06/23/17at 08:11; Start 06/23/17 at 09:00; Stop 06/23/17 at 19:29; Status DC Trazodone HCl (Desyrel) 100 mg HS PO Last administered on 06/30/17at 20:01; Start 06/23/17 at 21:00 Acetaminophen (Tylenol) 650 mg DAILY PO Last administered on 06/30/17at 07:53; Start 06/23/17 at 09:00 Acetaminophen (Tylenol) 650 mg PRN Q4HRS PRN PO PAIN / TEMP; Start 06/22/17 at 23:00; Status UNV Atorvastatin Calcium (Lipitor) 10 mg QHS PO Last administered on 06/30/17at 20: 01; Start 06/23/17 at 21:00 Bisacodyl (Dulcolax Supp) 10 mg PRN DAILY PRN RC CONSTIPATION; Start 06/22/17 at 23:00 Calcium Carbonate/ Glycine (Oscal) 1,000 mg DAILY PO Last administered on at 07:54; Start 06/23/17 at 09:00 Cetirizine HCl (ZyrTEC) 10 mg HS PO Last administered on 06/30/17at 20:01; Start 06/23/17 at 21:00 Hydrochlorothiazide (Hydrodiuril) 25 mg DAILY PO Last administered on at 08:11; Start 06/23/17 at 09:00; Stop 06/25/17 at 17:16; Status DC Lisinopril (Prinivil) 20 mg BID PO ; Start 06/23/17 at 09:00; Stop 06/24/17 at 18:04; Status DC Metoprolol Tartrate (Lopressor) 12.5 mg BID PO Last administered on 06/30/17at 20:10; Start 06/23/17 at 09:00 Simvastatin (Zocor) 20 mg HS PO ; Start 06/23/17 at 21:00; Status UNV Vitamin D (Vitamin D3) 2,000 unit DAILY PO Last administered on 06/30/17at 07:53 ; Start 06/23/17 at 09:00 Non-Formulary Medication 30 ml PRN Q4HRS PRN PO DYSPEPSIA; Start 06/22/17 at 23 :00; Status UNV Non-Formulary Medication 2,400 mg PRN DAILY PRN PO CONSTIPATION; Start at 23:00; Status UNV Non-Formulary Medication 50 mg DAILY PO ; Start 06/23/17 at 09:00; Status UNV Potassium Chloride (Klor-Con) 10 meq DAILYWBKFT PO Last administered on at 07:53; Start 06/23/17 at 08:00 Influenza Virus Vaccine Quadrival (Fluarix Quad [id number] Syringe) 0.5 ml ONCE ONCE VAX IM Last administered on 06/23/17at 09:50; Start 06/23/17 at 09:00; Stop 06/23/17 at 09:01; Status DC Pneumoccal 13-Valent Conj Vacc (Prevnar 13) 0.5 ml ONCE ONCE VAX IM ; Start at 09:00; Stop 06/23/17 at 09:01; Status UNV Pneumococcal Polyvalent Vaccine (Pneumovax 23) 0.5 ml ONCE ONCE VAX IM Last administered on 06/23/17at 09:51; Start 06/23/17 at 09:00; Stop 06/23/17 at 09:01 ; Status DC Duloxetine HCl (Cymbalta) 30 mg DAILY PO Last administered on 06/27/17at 09:59; Start 06/24/17 at 09:00; Stop 06/27/17 at 15:39; Status DC Vitamin D (Vitamin D3) 50,000 unit WEEKLY PO ; Start 06/24/17 at 18:00; Stop at 18:38; Status DC Lisinopril (Prinivil) 20 mg DAILY PO ; Start 06/25/17 at 09:00; Stop 06/25/17 at 17:16; Status DC Vitamin D (Vitamin D3) 50,000 unit WEEKLY PO Last administered on 06/24/17at 20: 44; Start 06/24/17 at 20:00 Sodium Chloride 1,000 ml @ 1,000 mls/hr 1X ONCE IV Last administered on at 16:00; Start 06/25/17 at 16:00; Stop 06/25/17 at 17:00; Status DC Lisinopril (Prinivil) 10 mg DAILY PO Last administered on 06/27/17at 09:52; Start 06/26/17 at 09:00 Sodium Chloride 1,000 ml @ 1,000 mls/hr 1X ONCE IV Last administered on at 12:46; Start 06/27/17 at 11:30; Stop 06/27/17 at 12:29; Status DC Magnesium Oxide (Magnesium Oxide) 400 mg BIDACLD PO Last administered on at 18:22; Start 06/27/17 at 11:30 Duloxetine HCl (Cymbalta) 60 mg DAILY PO Last administered on 06/30/17at 07:53; Start 06/28/17 at 09:00 Divalproex Sodium (Depakote Er) 500 mg QHS PO Last administered on 06/30/17at 20 :01; Start 06/28/17 at 21:00 Active Scripts Active Reported Milk Of Magnesia (Magnesium Hydroxide) 2,400 Mg/10 Ml Oral.susp 2,400 Mg PO PRN DAILY PRN Bisacodyl 10 Mg Supp.rect 10 Mg RC PRN DAILY PRN Mag-Al Plus Suspension (Mag Hydrox/Al Hydrox/Simeth) 30 Ml Oral.susp 30 Ml PO PRN Q4HRS PRN Tylenol (Acetaminophen) 325 Mg Tablet 650 Mg PO PRN Q4HRS PRN Metoprolol Succinate ( Xl ) (Metoprolol Succinate) 25 Mg Tab.er.24h 12.5 Mg PO BID Lisinopril 20 Mg Tablet 20 Mg PO BID Vitamin D-3 (Cholecalciferol (Vitamin D3)) 2,000 Unit Tablet 2,000 Unit PO DAILY Potassium Chloride 10 Meq Capsule.er 10 Meq PO DAILY Oyster Shell Calcium (Calcium Carbonate) 500 Mg Tablet 1,000 Mg PO DAILY Myrbetriq (Mirabegron) 50 Mg Tab.er.24h 50 Mg PO DAILY Hydrochlorothiazide Tablet (Hydrochlorothiazide) 25 Mg Tablet 25 Mg PO DAILY Atorvastatin Calcium 10 Mg Tablet 10 Mg PO QHS Zyrtec (Cetirizine Hcl) 10 Mg Tablet 10 Mg PO HS Simvastatin 20 Mg Tablet 20 Mg PO HS Trazodone Hcl 100 Mg Tablet 100 Mg PO HS Zoloft (Sertraline Hcl) 50 Mg Tablet 50 Mg PO DAILY Prozac (Fluoxetine Hcl) 20 Mg Capsule 20 Mg PO DAILY Tylenol (Acetaminophen) 325 Mg Tablet 650 Mg PO DAILY I have reviewed the current psychotropics carefully including drug interactions. Risk benefit ratio favors no change other than as noted in my dictated progress note. Diagnosis: Problems: (1) Depression (2) Benign essential hypertension (3) Anxiety disorder (4) Major depressive disorder, recurrent episode (5) Asperger's disorder NADIRA ELLIS MD Jul 01, 2017 06:51
--- NOTE | 2017-07-01 07:55 | PN ---
DATE: 06/28/2017 PSYCHIATRIC PROGRESS NOTE This is a late entry 06/28/2017 covers elements not covered in my initial note 06/28/2017. SUBJECTIVE: I met with the patient evening of 06/28/2017. The patient has episodes of becoming extremely tearful, labile in his mood, crying, wanting to . He was quite startled at lunchtime, yelling out, putting his middle finger up to the nursing staff, making statements that he wished he had a gun or a knife to end his life. He slept for 8-1/4 hours previous evening. REVIEW OF SYSTEMS: Ambulation impaired, in wheelchair. No CV, , pulmonary, eye, ENT system symptoms on review. Reliability poor. MENTAL STATUS EXAM: Oriented to himself and situation. Speech has some latency, often response is monosyllabic. Abstraction fair, computation impaired. Insight limited, judgment marginal, language function intact. Mood and affect remains labile. LABORATORY DATA: Reviewed. IMPRESSION: Major depressive disorder with psychotic features, bipolar 1 disorder, mixed; autistic spectrum disorder by history from the family. PLAN: Continue Cymbalta 60 mg a day, trazodone 100 mg at bedtime, start Depakote ER 500 mg at bedtime for his mood disorder. Check CBC, CMP, valproic acid level in 3 days. Adjust further as clinically indicated. MAN Rubi ELLIS MD DR: CHRISTIANO/marilyn JOB#: [id number] / [id number]
[2017-07-01 07:57] LABS: BASO % 0 % (0-3); EOS # 0.3 x10^3/uL (0.0-0.7); EOS % 4 % (0-3); HEMATOCRIT 36.9 % (39.0-53.0); HEMOGLOBIN 12.5 g/dL (13.0-17.5); LYMPH % 26 % (24-48); MEAN CORPUSCULAR HEMOGLOBIN 29 pg (25-35); MEAN CORPUSCULAR HGB CONC 34 g/dL (31-37); MEAN CORPUSCULAR VOLUME 87 fL (79-100); MONO # 1.1 x10^3/uL (0.0-1.1); MONO % 14 % (0-9); NEUT # 4.5 x10^3uL (1.8-7.7); NEUT % 56 % (31-73); PLATELET COUNT 205 x10^3/uL (140-400); RED BLOOD COUNT 4.26 x10^6/uL (4.30-5.70); RED CELL DISTRIBUTION WIDTH 14.8 % (11.5-14.5); WHITE BLOOD COUNT 7.9 x10^3/uL (4.0-11.0)
[2017-07-01] MEDS: DULoxetine HCL 30 MG CAPSULE.DR PO SCH (08:09)
[2017-07-01] MEDS: METOPROLOL TART IMMED RELEASE 25 MG TABLET PO SCH ×2 (08:10→21:00)
[2017-07-01] MEDS: ACETAMINOPHEN 325 MG TABLET PO SCH (08:10)
[2017-07-01] MEDS: CHOLECALCIFEROL (VITAMIN D3) 1,000 UNIT TABLET PO SCH (08:10)
[2017-07-01] MEDS: POTASSIUM CHLORIDE 10 MEQ TABLET.ER. PO SCH (08:10)
[2017-07-01] MEDS: MIRABEGRON 25 MG TAB.ER.24H PO SCH (08:10)
[2017-07-01] MEDS: CALCIUM CARBONATE 500 MG TABLET PO SCH (08:10)
[2017-07-01] MEDS: LISINOPRIL 10 MG TABLET PO SCH (08:11)
[2017-07-01] MEDS: CHOLECALCIFEROL (VITAMIN D3) 50,000 UNIT CAPSULE PO SCH (08:12)
[2017-07-01 08:17] LABS: ALBUMIN 3.2 g/dL (3.4-5.0); ALBUMIN/GLOBULIN RATIO 0.8 (1.0-1.7); ALK PHOS 70 U/L (46-116); ALT (SGPT) 19 U/L (16-63); ANION GAP 5 (6-14); AST (SGOT) 13 U/L (15-37); BLOOD UREA NITROGEN 27 mg/dL (8-26); BUN/CREATININE RATIO 23 (6-20); CALCIUM 9.2 mg/dL (8.5-10.1); CARBON DIOXIDE 32 mmol/L (21-32); CHLORIDE 101 mmol/L (98-107); CREATININE 1.2 mg/dL (0.7-1.3); GFR 59.5; GLUCOSE 105 mg/dL (70-99); MAGNESIUM 1.8 mg/dL (1.8-2.4); POTASSIUM 4.6 mmol/L (3.5-5.1); SODIUM 138 mmol/L (136-145); TOTAL BILIRUBIN 0.3 mg/dL (0.2-1.0)
[2017-07-01 08:21] LABS: VAL ACID 29 mcg/mL (50-100)
[2017-07-01] MEDS: MAGNESIUM OXIDE 400 MG TABLET PO SCH ×2 (11:30→18:07)
[2017-07-01 16:09] VITALS: BP 104/58
[2017-07-01] MEDS: CETIRIZINE HCL 10 MG TABLET PO SCH (20:59)
[2017-07-01] MEDS: ATORVASTATIN CALCIUM 10 MG TABLET. PO SCH (20:59)
[2017-07-01] MEDS: traZODone 100 MG TABLET. PO SCH (20:59)
[2017-07-01] MEDS: DIVALPROEX ER 250 MG TAB.ER.24H. PO SCH (21:01)
--- NOTE | 2017-07-01 22:14 | PDOC ---
Exam Note: Brian Note: Please also refer to the separate dictated note~for this date of service dictated separately.~Patient seen individually. Discussed the patient with Nursing staff reviewed the chart.~Reviewed interim history and current functioning. Reviewed vital signs,~Labs/ Radiology~and current medications noted below. Continue current treatment with the changes noted in the dictated addendum note Assessment: Vital Signs: Vital Signs Date Time Temp Pulse Resp B/P (MAP) Pulse Ox O2 Delivery O2 Flow Rate FiO2 07/01/17 21:00 84 104/58 07/01/17 16:09 97.4 20 95 06/30/17 16:17 Room Air I&O Intake and Output 07/01/17 07:00 Intake Total 1200 ml Balance 1200 ml Intake Oral 1200 ml # Bowel Movements 1 Labs: Laboratory Tests Test 07/01/17 07:29 White Blood Count 7.9 x10^3/uL (4.0-11.0) Red Blood Count 4.26 x10^6/uL (4.30-5.70) L Hemoglobin 12.5 g/dL (13.0-17.5) L Hematocrit 36.9 % (39.0-53.0) L Mean Corpuscular Volume 87 fL (79-100) Mean Corpuscular Hemoglobin 29 pg (25-35) Mean Corpuscular Hemoglobin Concent 34 g/dL (31-37) Red Cell Distribution Width 14.8 % (11.5-14.5) H Platelet Count 205 x10^3/uL (140-400) Neutrophils (%) (Auto) 56 % (31-73) Lymphocytes (%) (Auto) 26 % (24-48) Monocytes (%) (Auto) 14 % (0-9) H Eosinophils (%) (Auto) 4 % (0-3) H Basophils (%) (Auto) 0 % (0-3) Neutrophils # (Auto) 4.5 x10^3uL (1.8-7.7) Lymphocytes # (Auto) 2.0 x10^3/uL (1.0-4.8) Monocytes # (Auto) 1.1 x10^3/uL (0.0-1.1) Eosinophils # (Auto) 0.3 x10^3/uL (0.0-0.7) Basophils # (Auto) 0.0 x10^3/uL (0.0-0.2) Sodium Level 138 mmol/L (136-145) Potassium Level 4.6 mmol/L (3.5-5.1) Chloride Level 101 mmol/L (98-107) Carbon Dioxide Level 32 mmol/L (21-32) Anion Gap 5 (6-14) L Blood Urea Nitrogen 27 mg/dL (8-26) H Creatinine 1.2 mg/dL (0.7-1.3) Estimated GFR (Cockcroft-Gault) 59.5 BUN/Creatinine Ratio 23 (6-20) H Glucose Level 105 mg/dL (70-99) H Calcium Level 9.2 mg/dL (8.5-10.1) Magnesium Level 1.8 mg/dL (1.8-2.4) Total Bilirubin 0.3 mg/dL (0.2-1.0) Aspartate Amino Transferase (AST) 13 U/L (15-37) L Alanine Aminotransferase (ALT) 19 U/L (16-63) Alkaline Phosphatase 70 U/L (46-116) Total Protein 7.0 g/dL (6.4-8.2) Albumin 3.2 g/dL (3.4-5.0) L Albumin/Globulin Ratio 0.8 (1.0-1.7) L Valproic Acid Level 29 mcg/mL (50-100) L Valproic Acid Last Dose Date 06/30/17 Valproic Acid Last Dose Time 2100 Current Medications: Meds: Current Medications Acetaminophen (Tylenol) 650 mg PRN Q6HRS PRN PO PAIN / TEMP; Start 06/22/17 at 22:45 Multi-Ingredient Ointment (Analgesic [place]) 1 kermit PRN QID PRN TP MUSCLE PAIN; Start 06/22/17 at 22:45 Al Hydroxide/Mg Hydroxide (Mylanta Plus Xs) 15 ml PRN AFTMEALHC PRN PO DYSPEPSIA; Start 06/22/17 at 22:45 Magnesium Hydroxide (Milk Of Magnesia) 2,400 mg PRN QHS PRN PO CONSTIPATION; Start 06/22/17 at 22:45 Fluoxetine HCl (PROzac) 20 mg DAILY PO Last administered on 06/23/17at 08:15; Start 06/23/17 at 09:00; Stop 06/23/17 at 19:29; Status DC Sertraline HCl (Zoloft) 50 mg DAILY PO Last administered on 06/23/17at 08:11; Start 06/23/17 at 09:00; Stop 06/23/17 at 19:29; Status DC Trazodone HCl (Desyrel) 100 mg HS PO Last administered on 07/01/17at 20:59; Start 06/23/17 at 21:00 Acetaminophen (Tylenol) 650 mg DAILY PO Last administered on 07/01/17at 08:10; Start 06/23/17 at 09:00 Acetaminophen (Tylenol) 650 mg PRN Q4HRS PRN PO PAIN / TEMP; Start 06/22/17 at 23:00; Status UNV Atorvastatin Calcium (Lipitor) 10 mg QHS PO Last administered on 07/01/17at 20: 59; Start 06/23/17 at 21:00 Bisacodyl (Dulcolax Supp) 10 mg PRN DAILY PRN RC CONSTIPATION; Start 06/22/17 at 23:00 Calcium Carbonate/ Glycine (Oscal) 1,000 mg DAILY PO Last administered on at 08:10; Start 06/23/17 at 09:00 Cetirizine HCl (ZyrTEC) 10 mg HS PO Last administered on 07/01/17at 20:59; Start 06/23/17 at 21:00 Hydrochlorothiazide (Hydrodiuril) 25 mg DAILY PO Last administered on at 08:11; Start 06/23/17 at 09:00; Stop 06/25/17 at 17:16; Status DC Lisinopril (Prinivil) 20 mg BID PO ; Start 06/23/17 at 09:00; Stop 06/24/17 at 18:04; Status DC Metoprolol Tartrate (Lopressor) 12.5 mg BID PO Last administered on 06/30/17at 20:10; Start 06/23/17 at 09:00 Simvastatin (Zocor) 20 mg HS PO ; Start 06/23/17 at 21:00; Status UNV Vitamin D (Vitamin D3) 2,000 unit DAILY PO Last administered on 07/01/17at 08:10 ; Start 06/23/17 at 09:00 Non-Formulary Medication 30 ml PRN Q4HRS PRN PO DYSPEPSIA; Start 06/22/17 at 23 :00; Status UNV Non-Formulary Medication 2,400 mg PRN DAILY PRN PO CONSTIPATION; Start at 23:00; Status UNV Non-Formulary Medication 50 mg DAILY PO ; Start 06/23/17 at 09:00; Status UNV Potassium Chloride (Klor-Con) 10 meq DAILYWBKFT PO Last administered on at 08:10; Start 06/23/17 at 08:00 Influenza Virus Vaccine Quadrival (Fluarix Quad [id number] Syringe) 0.5 ml ONCE ONCE VAX IM Last administered on 06/23/17at 09:50; Start 06/23/17 at 09:00; Stop 06/23/17 at 09:01; Status DC Pneumoccal 13-Valent Conj Vacc (Prevnar 13) 0.5 ml ONCE ONCE VAX IM ; Start at 09:00; Stop 06/23/17 at 09:01; Status UNV Pneumococcal Polyvalent Vaccine (Pneumovax 23) 0.5 ml ONCE ONCE VAX IM Last administered on 06/23/17at 09:51; Start 06/23/17 at 09:00; Stop 06/23/17 at 09:01 ; Status DC Duloxetine HCl (Cymbalta) 30 mg DAILY PO Last administered on 06/27/17at 09:59; Start 06/24/17 at 09:00; Stop 06/27/17 at 15:39; Status DC Vitamin D (Vitamin D3) 50,000 unit WEEKLY PO ; Start 06/24/17 at 18:00; Stop at 18:38; Status DC Lisinopril (Prinivil) 20 mg DAILY PO ; Start 06/25/17 at 09:00; Stop 06/25/17 at 17:16; Status DC Vitamin D (Vitamin D3) 50,000 unit WEEKLY PO Last administered on 07/01/17at 08: 12; Start 06/24/17 at 20:00 Sodium Chloride 1,000 ml @ 1,000 mls/hr 1X ONCE IV Last administered on at 16:00; Start 06/25/17 at 16:00; Stop 06/25/17 at 17:00; Status DC Lisinopril (Prinivil) 10 mg DAILY PO Last administered on 06/27/17at 09:52; Start 06/26/17 at 09:00 Sodium Chloride 1,000 ml @ 1,000 mls/hr 1X ONCE IV Last administered on at 12:46; Start 06/27/17 at 11:30; Stop 06/27/17 at 12:29; Status DC Magnesium Oxide (Magnesium Oxide) 400 mg BIDACLD PO Last administered on at 18:07; Start 06/27/17 at 11:30 Duloxetine HCl (Cymbalta) 60 mg DAILY PO Last administered on 07/01/17at 08:09; Start 06/28/17 at 09:00 Divalproex Sodium (Depakote Er) 500 mg QHS PO Last administered on 06/30/17at 20 :01; Start 06/28/17 at 21:00; Stop 07/01/17 at 19:33; Status DC Divalproex Sodium (Depakote Er) 750 mg QHS PO Last administered on 07/01/17at 21 :01; Start 07/01/17 at 21:00 Active Scripts Active Reported Milk Of Magnesia (Magnesium Hydroxide) 2,400 Mg/10 Ml Oral.susp 2,400 Mg PO PRN DAILY PRN Bisacodyl 10 Mg Supp.rect 10 Mg RC PRN DAILY PRN Mag-Al Plus Suspension (Mag Hydrox/Al Hydrox/Simeth) 30 Ml Oral.susp 30 Ml PO PRN Q4HRS PRN Tylenol (Acetaminophen) 325 Mg Tablet 650 Mg PO PRN Q4HRS PRN Metoprolol Succinate ( Xl ) (Metoprolol Succinate) 25 Mg Tab.er.24h 12.5 Mg PO BID Lisinopril 20 Mg Tablet 20 Mg PO BID Vitamin D-3 (Cholecalciferol (Vitamin D3)) 2,000 Unit Tablet 2,000 Unit PO DAILY Potassium Chloride 10 Meq Capsule.er 10 Meq PO DAILY Oyster Shell Calcium (Calcium Carbonate) 500 Mg Tablet 1,000 Mg PO DAILY Myrbetriq (Mirabegron) 50 Mg Tab.er.24h 50 Mg PO DAILY Hydrochlorothiazide Tablet (Hydrochlorothiazide) 25 Mg Tablet 25 Mg PO DAILY Atorvastatin Calcium 10 Mg Tablet 10 Mg PO QHS Zyrtec (Cetirizine Hcl) 10 Mg Tablet 10 Mg PO HS Simvastatin 20 Mg Tablet 20 Mg PO HS Trazodone Hcl 100 Mg Tablet 100 Mg PO HS Zoloft (Sertraline Hcl) 50 Mg Tablet 50 Mg PO DAILY Prozac (Fluoxetine Hcl) 20 Mg Capsule 20 Mg PO DAILY Tylenol (Acetaminophen) 325 Mg Tablet 650 Mg PO DAILY I have reviewed the current psychotropics carefully including drug interactions. Risk benefit ratio favors no change other than as noted in my dictated progress note. Diagnosis: Problems: (1) Depression (2) Anxiety disorder (3) Major depressive disorder, recurrent episode (4) Asperger's disorder NADIRA ELLIS MD Jul 01, 2017 22:14
[2017-07-02 06:08] VITALS: BP 134/77
[2017-07-02] MEDS: MIRABEGRON 25 MG TAB.ER.24H PO SCH (07:37)
[2017-07-02] MEDS: METOPROLOL TART IMMED RELEASE 25 MG TABLET PO SCH ×2 (07:38→19:40)
[2017-07-02] MEDS: CALCIUM CARBONATE 500 MG TABLET PO SCH (07:39)
[2017-07-02] MEDS: POTASSIUM CHLORIDE 10 MEQ TABLET.ER. PO SCH (07:39)
[2017-07-02] MEDS: ACETAMINOPHEN 325 MG TABLET PO SCH (07:39)
[2017-07-02] MEDS: LISINOPRIL 10 MG TABLET PO SCH (07:40)
[2017-07-02] MEDS: CHOLECALCIFEROL (VITAMIN D3) 1,000 UNIT TABLET PO SCH (07:40)
[2017-07-02] MEDS: DULoxetine HCL 30 MG CAPSULE.DR PO SCH (07:40)
[2017-07-02] MEDS: MAGNESIUM OXIDE 400 MG TABLET PO SCH ×2 (14:31→17:15)
[2017-07-02 16:11] VITALS: BP 105/70
[2017-07-02] MEDS: DIVALPROEX ER 250 MG TAB.ER.24H. PO SCH (19:39)
[2017-07-02] MEDS: traZODone 100 MG TABLET. PO SCH (19:39)
[2017-07-02] MEDS: ATORVASTATIN CALCIUM 10 MG TABLET. PO SCH (19:39)
[2017-07-02] MEDS: CETIRIZINE HCL 10 MG TABLET PO SCH (19:40)
[2017-07-02] MEDS: ACETAMINOPHEN 325 MG TABLET PO PRN (19:51)
--- NOTE | 2017-07-02 20:02 | PDOC ---
Exam Note: Brian Note: Please also refer to the separate dictated note~for this date of service dictated separately.~Patient seen individually. Discussed the patient with Nursing staff reviewed the chart.~Reviewed interim history and current functioning. Reviewed vital signs,~Labs/ Radiology~and current medications noted below. Continue current treatment with the changes noted in the dictated addendum note Assessment: Vital Signs: Vital Signs Date Time Temp Pulse Resp B/P (MAP) Pulse Ox O2 Delivery O2 Flow Rate FiO2 07/02/17 19:40 95 105/70 07/02/17 16:11 97.9 16 95 Room Air I&O Intake and Output 07/02/17 07:00 Intake Total 1560 ml Balance 1560 ml Intake Oral 1560 ml Current Medications: Meds: Current Medications Acetaminophen (Tylenol) 650 mg PRN Q6HRS PRN PO PAIN / TEMP Last administered on 07/02/17at 19:51; Start 06/22/17 at 22:45 Multi-Ingredient Ointment (Analgesic [place]) 1 kermit PRN QID PRN TP MUSCLE PAIN; Start 06/22/17 at 22:45 Al Hydroxide/Mg Hydroxide (Mylanta Plus Xs) 15 ml PRN AFTMEALHC PRN PO DYSPEPSIA; Start 06/22/17 at 22:45 Magnesium Hydroxide (Milk Of Magnesia) 2,400 mg PRN QHS PRN PO CONSTIPATION; Start 06/22/17 at 22:45 Fluoxetine HCl (PROzac) 20 mg DAILY PO Last administered on 06/23/17at 08:15; Start 06/23/17 at 09:00; Stop 06/23/17 at 19:29; Status DC Sertraline HCl (Zoloft) 50 mg DAILY PO Last administered on 06/23/17at 08:11; Start 06/23/17 at 09:00; Stop 06/23/17 at 19:29; Status DC Trazodone HCl (Desyrel) 100 mg HS PO Last administered on 07/02/17at 19:39; Start 06/23/17 at 21:00 Acetaminophen (Tylenol) 650 mg DAILY PO Last administered on 07/02/17at 07:39; Start 06/23/17 at 09:00 Acetaminophen (Tylenol) 650 mg PRN Q4HRS PRN PO PAIN / TEMP; Start 06/22/17 at 23:00; Status UNV Atorvastatin Calcium (Lipitor) 10 mg QHS PO Last administered on 07/02/17at 19: 39; Start 06/23/17 at 21:00 Bisacodyl (Dulcolax Supp) 10 mg PRN DAILY PRN RC CONSTIPATION; Start 06/22/17 at 23:00 Calcium Carbonate/ Glycine (Oscal) 1,000 mg DAILY PO Last administered on at 07:39; Start 06/23/17 at 09:00 Cetirizine HCl (ZyrTEC) 10 mg HS PO Last administered on 07/02/17at 19:40; Start 06/23/17 at 21:00 Hydrochlorothiazide (Hydrodiuril) 25 mg DAILY PO Last administered on at 08:11; Start 06/23/17 at 09:00; Stop 06/25/17 at 17:16; Status DC Lisinopril (Prinivil) 20 mg BID PO ; Start 06/23/17 at 09:00; Stop 06/24/17 at 18:04; Status DC Metoprolol Tartrate (Lopressor) 12.5 mg BID PO Last administered on 07/02/17at 19:40; Start 06/23/17 at 09:00 Simvastatin (Zocor) 20 mg HS PO ; Start 06/23/17 at 21:00; Status UNV Vitamin D (Vitamin D3) 2,000 unit DAILY PO Last administered on 07/02/17at 07:40 ; Start 06/23/17 at 09:00 Non-Formulary Medication 30 ml PRN Q4HRS PRN PO DYSPEPSIA; Start 06/22/17 at 23 :00; Status UNV Non-Formulary Medication 2,400 mg PRN DAILY PRN PO CONSTIPATION; Start at 23:00; Status UNV Non-Formulary Medication 50 mg DAILY PO ; Start 06/23/17 at 09:00; Status UNV Potassium Chloride (Klor-Con) 10 meq DAILYWBKFT PO Last administered on at 07:39; Start 06/23/17 at 08:00 Influenza Virus Vaccine Quadrival (Fluarix Quad [id number] Syringe) 0.5 ml ONCE ONCE VAX IM Last administered on 06/23/17at 09:50; Start 06/23/17 at 09:00; Stop 06/23/17 at 09:01; Status DC Pneumoccal 13-Valent Conj Vacc (Prevnar 13) 0.5 ml ONCE ONCE VAX IM ; Start at 09:00; Stop 06/23/17 at 09:01; Status UNV Pneumococcal Polyvalent Vaccine (Pneumovax 23) 0.5 ml ONCE ONCE VAX IM Last administered on 06/23/17at 09:51; Start 06/23/17 at 09:00; Stop 06/23/17 at 09:01 ; Status DC Duloxetine HCl (Cymbalta) 30 mg DAILY PO Last administered on 06/27/17at 09:59; Start 06/24/17 at 09:00; Stop 06/27/17 at 15:39; Status DC Vitamin D (Vitamin D3) 50,000 unit WEEKLY PO ; Start 06/24/17 at 18:00; Stop at 18:38; Status DC Lisinopril (Prinivil) 20 mg DAILY PO ; Start 06/25/17 at 09:00; Stop 06/25/17 at 17:16; Status DC Vitamin D (Vitamin D3) 50,000 unit WEEKLY PO Last administered on 07/01/17at 08: 12; Start 06/24/17 at 20:00 Sodium Chloride 1,000 ml @ 1,000 mls/hr 1X ONCE IV Last administered on at 16:00; Start 06/25/17 at 16:00; Stop 06/25/17 at 17:00; Status DC Lisinopril (Prinivil) 10 mg DAILY PO Last administered on 07/02/17at 07:40; Start 06/26/17 at 09:00; Stop 07/02/17 at 09:06; Status DC Sodium Chloride 1,000 ml @ 1,000 mls/hr 1X ONCE IV Last administered on at 12:46; Start 06/27/17 at 11:30; Stop 06/27/17 at 12:29; Status DC Magnesium Oxide (Magnesium Oxide) 400 mg BIDACLD PO Last administered on at 17:15; Start 06/27/17 at 11:30 Duloxetine HCl (Cymbalta) 60 mg DAILY PO Last administered on 07/02/17at 07:40; Start 06/28/17 at 09:00 Divalproex Sodium (Depakote Er) 500 mg QHS PO Last administered on 06/30/17at 20 :01; Start 06/28/17 at 21:00; Stop 07/01/17 at 19:33; Status DC Divalproex Sodium (Depakote Er) 750 mg QHS PO Last administered on 07/02/17at 19 :39; Start 07/01/17 at 21:00 Lisinopril (Prinivil) 5 mg DAILY PO ; Start 07/03/17 at 09:00 Active Scripts Active Reported Milk Of Magnesia (Magnesium Hydroxide) 2,400 Mg/10 Ml Oral.susp 2,400 Mg PO PRN DAILY PRN Bisacodyl 10 Mg Supp.rect 10 Mg RC PRN DAILY PRN Mag-Al Plus Suspension (Mag Hydrox/Al Hydrox/Simeth) 30 Ml Oral.susp 30 Ml PO PRN Q4HRS PRN Tylenol (Acetaminophen) 325 Mg Tablet 650 Mg PO PRN Q4HRS PRN Metoprolol Succinate ( Xl ) (Metoprolol Succinate) 25 Mg Tab.er.24h 12.5 Mg PO BID Lisinopril 20 Mg Tablet 20 Mg PO BID Vitamin D-3 (Cholecalciferol (Vitamin D3)) 2,000 Unit Tablet 2,000 Unit PO DAILY Potassium Chloride 10 Meq Capsule.er 10 Meq PO DAILY Oyster Shell Calcium (Calcium Carbonate) 500 Mg Tablet 1,000 Mg PO DAILY Myrbetriq (Mirabegron) 50 Mg Tab.er.24h 50 Mg PO DAILY Hydrochlorothiazide Tablet (Hydrochlorothiazide) 25 Mg Tablet 25 Mg PO DAILY Atorvastatin Calcium 10 Mg Tablet 10 Mg PO QHS Zyrtec (Cetirizine Hcl) 10 Mg Tablet 10 Mg PO HS Simvastatin 20 Mg Tablet 20 Mg PO HS Trazodone Hcl 100 Mg Tablet 100 Mg PO HS Zoloft (Sertraline Hcl) 50 Mg Tablet 50 Mg PO DAILY Prozac (Fluoxetine Hcl) 20 Mg Capsule 20 Mg PO DAILY Tylenol (Acetaminophen) 325 Mg Tablet 650 Mg PO DAILY I have reviewed the current psychotropics carefully including drug interactions. Risk benefit ratio favors no change other than as noted in my dictated progress note. Diagnosis: Problems: (1) Depression (2) Benign essential hypertension (3) Anxiety disorder (4) Major depressive disorder, recurrent episode (5) Asperger's disorder NADIRA ELLIS MD Jul 02, 2017 20:02
--- NOTE | 2017-07-02 20:30 | PN ---
DATE: 06/30/2017 This late entry 06/30/2017 covers elements not covered in my initial note 06/30/2017. SUBJECTIVE: I met with the patient evening of 06/30/2017. He has been more compliant, no yelling noted, appropriate at meals, did not refuse medications. REVIEW OF SYSTEMS: Ambulation impaired, in wheelchair. No CV, , pulmonary, eye system symptoms on review. He is working on his crossword puzzle as I met with him. MENTAL STATUS EXAM: Oriented to himself and situation. Speech moderate latency, often responses monosyllabic. Abstraction fair, computation impaired, language function intact. Mood and affect still somewhat withdrawn, but improved. LABORATORY DATA: Reviewed. IMPRESSION: Major depressive disorder, autistic spectrum disorder, bipolar 1 disorder, mixed versus depressed. PLAN: Continue current psychotropics. Check labs level on the Depakote, adjust to recheck ____. MAN Rubi ELLIS MD DR: CHRISTIANO/marilyn JOB#: [id number] / [id number]
--- NOTE | 2017-07-02 21:12 | PN ---
DATE: 07/01/2017 PSYCHIATRIC PROGRESS NOTE This note covers elements not covered in my initial note of 07/01/2017. SUBJECTIVE: I met with the patient the evening of 07/01/2017. The patient slept reasonably last evening 5 hours, working on a crossword puzzle as I met with him. REVIEW OF SYSTEMS: Ambulation impaired, in wheelchair. No CV, , pulmonary, eye, ENT system symptoms on review. MENTAL STATUS EXAM: Oriented to himself and situation. Speech, moderate latency, often responses monosyllabic. Abstraction fair, computation impaired, language function intact. Mood and affect still depressed, but showing improvement. LABORATORY DATA: Valproic acid level is 29. IMPRESSION: Bipolar 1 disorder, mixed; autistic spectrum disorder; history of major depressive disorder. PLAN: We will increase Depakote ER from 500 mg at bedtime to 750 mg at bedtime. Check CBC, CMP level in 3 days. Continue rest unchanged. MAN Rubi ELLIS MD DR: CHRISTIANO/marilyn JOB#: [id number] / [id number]
[2017-07-03 05:59] VITALS: BP 110/60
[2017-07-03] MEDS: CALCIUM CARBONATE 500 MG TABLET PO SCH (07:57)
[2017-07-03] MEDS: CHOLECALCIFEROL (VITAMIN D3) 1,000 UNIT TABLET PO SCH (07:57)
[2017-07-03] MEDS: DULoxetine HCL 30 MG CAPSULE.DR PO SCH (07:57)
[2017-07-03] MEDS: METOPROLOL TART IMMED RELEASE 25 MG TABLET PO SCH ×2 (07:58→20:00)
[2017-07-03] MEDS: POTASSIUM CHLORIDE 10 MEQ TABLET.ER. PO SCH (07:58)
[2017-07-03] MEDS: ACETAMINOPHEN 325 MG TABLET PO SCH (07:58)
[2017-07-03] MEDS: MIRABEGRON 25 MG TAB.ER.24H PO SCH (07:59)
[2017-07-03] MEDS: MAGNESIUM OXIDE 400 MG TABLET PO SCH ×2 (07:59→16:29)
[2017-07-03] MEDS: LISINOPRIL 5 MG TABLET. PO SCH (08:00)
--- NOTE | 2017-07-03 11:47 | PN ---
DATE: 06/29/2017 This late entry 06/29/2017 covers elements not covered in my initial note 06/29/2017. The patient was staffed at treatment team meeting with the entire team morning of 06/29/2017 seen individually evening of 06/29/2017. The patient's brother, Riky attended this conference. Reviewed the patient's history including information from Riky about patient's prior diagnosis of autistic disorder. The patient continues to have some mood lability. He gets angry, irritable, labile, does redirect. Past history is suggestive of bipolar disorder in addition to above diagnosis. REVIEW OF SYSTEMS: Ambulation impaired, in wheelchair. No CV, , pulmonary, eye, ENT system symptoms on review. MENTAL STATUS EXAM: Oriented to himself, situation. Eye contact is poor. Sits in wheelchair, head bent forward, more interactive, working on crossword puzzles as I met with him. Abstraction fair, computation impaired, language function intact, attention span short. Mood and affect remains intermittently labile. LABORATORY DATA: Reviewed. IMPRESSION: Bipolar 1 disorder, depressed, history of autistic spectrum disorder, history of major depressive disorder with psychotic features. PLAN: Continue current psychotropics. Add Depakote for his bipolar disorder. Follow labs level, adjust as indicated. MAN Rubi ELLIS MD DR: CHRISTIANO/marilyn JOB#: [id number] / [id number]
[2017-07-03 15:58] VITALS: BP 131/78
[2017-07-03] MEDS: CETIRIZINE HCL 10 MG TABLET PO SCH (19:59)
[2017-07-03] MEDS: ATORVASTATIN CALCIUM 10 MG TABLET. PO SCH (19:59)
[2017-07-03] MEDS: traZODone 100 MG TABLET. PO SCH (19:59)
--- NOTE | 2017-07-03 19:59 | PDOC ---
Exam Note: Brian Note: Please also refer to the separate dictated note~for this date of service dictated separately.~Patient seen individually. Discussed the patient with Nursing staff reviewed the chart.~Reviewed interim history and current functioning. Reviewed vital signs,~Labs/ Radiology~and current medications noted below. Continue current treatment with the changes noted in the dictated addendum note Assessment: Vital Signs: Vital Signs Date Time Temp Pulse Resp B/P (MAP) Pulse Ox O2 Delivery O2 Flow Rate FiO2 07/03/17 15:58 97.7 80 18 131/78 (95) 100 07/02/17 16:11 Room Air I&O Intake and Output 07/03/17 07:00 Intake Total 1080 ml Balance 1080 ml Intake Oral 1080 ml # Voids 1 # Bowel Movements 1 Current Medications: Meds: Current Medications Acetaminophen (Tylenol) 650 mg PRN Q6HRS PRN PO PAIN / TEMP Last administered on 07/02/17at 19:51; Start 06/22/17 at 22:45 Multi-Ingredient Ointment (Analgesic [place]) 1 kermit PRN QID PRN TP MUSCLE PAIN; Start 06/22/17 at 22:45 Al Hydroxide/Mg Hydroxide (Mylanta Plus Xs) 15 ml PRN AFTMEALHC PRN PO DYSPEPSIA; Start 06/22/17 at 22:45 Magnesium Hydroxide (Milk Of Magnesia) 2,400 mg PRN QHS PRN PO CONSTIPATION; Start 06/22/17 at 22:45 Fluoxetine HCl (PROzac) 20 mg DAILY PO Last administered on 06/23/17at 08:15; Start 06/23/17 at 09:00; Stop 06/23/17 at 19:29; Status DC Sertraline HCl (Zoloft) 50 mg DAILY PO Last administered on 06/23/17at 08:11; Start 06/23/17 at 09:00; Stop 06/23/17 at 19:29; Status DC Trazodone HCl (Desyrel) 100 mg HS PO Last administered on 07/02/17at 19:39; Start 06/23/17 at 21:00 Acetaminophen (Tylenol) 650 mg DAILY PO Last administered on 07/03/17at 07:58; Start 06/23/17 at 09:00 Acetaminophen (Tylenol) 650 mg PRN Q4HRS PRN PO PAIN / TEMP; Start 06/22/17 at 23:00; Status UNV Atorvastatin Calcium (Lipitor) 10 mg QHS PO Last administered on 07/02/17at 19: 39; Start 06/23/17 at 21:00 Bisacodyl (Dulcolax Supp) 10 mg PRN DAILY PRN RC CONSTIPATION; Start 06/22/17 at 23:00 Calcium Carbonate/ Glycine (Oscal) 1,000 mg DAILY PO Last administered on at 07:57; Start 06/23/17 at 09:00 Cetirizine HCl (ZyrTEC) 10 mg HS PO Last administered on 07/02/17at 19:40; Start 06/23/17 at 21:00 Hydrochlorothiazide (Hydrodiuril) 25 mg DAILY PO Last administered on at 08:11; Start 06/23/17 at 09:00; Stop 06/25/17 at 17:16; Status DC Lisinopril (Prinivil) 20 mg BID PO ; Start 06/23/17 at 09:00; Stop 06/24/17 at 18:04; Status DC Metoprolol Tartrate (Lopressor) 12.5 mg BID PO Last administered on 07/03/17at 07:58; Start 06/23/17 at 09:00 Simvastatin (Zocor) 20 mg HS PO ; Start 06/23/17 at 21:00; Status UNV Vitamin D (Vitamin D3) 2,000 unit DAILY PO Last administered on 07/03/17at 07:57 ; Start 06/23/17 at 09:00 Non-Formulary Medication 30 ml PRN Q4HRS PRN PO DYSPEPSIA; Start 06/22/17 at 23 :00; Status UNV Non-Formulary Medication 2,400 mg PRN DAILY PRN PO CONSTIPATION; Start at 23:00; Status UNV Non-Formulary Medication 50 mg DAILY PO ; Start 06/23/17 at 09:00; Status UNV Potassium Chloride (Klor-Con) 10 meq DAILYWBKFT PO Last administered on at 07:58; Start 06/23/17 at 08:00 Influenza Virus Vaccine Quadrival (Fluarix Quad [id number] Syringe) 0.5 ml ONCE ONCE VAX IM Last administered on 06/23/17at 09:50; Start 06/23/17 at 09:00; Stop 06/23/17 at 09:01; Status DC Pneumoccal 13-Valent Conj Vacc (Prevnar 13) 0.5 ml ONCE ONCE VAX IM ; Start at 09:00; Stop 06/23/17 at 09:01; Status UNV Pneumococcal Polyvalent Vaccine (Pneumovax 23) 0.5 ml ONCE ONCE VAX IM Last administered on 06/23/17at 09:51; Start 06/23/17 at 09:00; Stop 06/23/17 at 09:01 ; Status DC Duloxetine HCl (Cymbalta) 30 mg DAILY PO Last administered on 06/27/17at 09:59; Start 06/24/17 at 09:00; Stop 06/27/17 at 15:39; Status DC Vitamin D (Vitamin D3) 50,000 unit WEEKLY PO ; Start 06/24/17 at 18:00; Stop at 18:38; Status DC Lisinopril (Prinivil) 20 mg DAILY PO ; Start 06/25/17 at 09:00; Stop 06/25/17 at 17:16; Status DC Vitamin D (Vitamin D3) 50,000 unit WEEKLY PO Last administered on 07/01/17at 08: 12; Start 06/24/17 at 20:00 Sodium Chloride 1,000 ml @ 1,000 mls/hr 1X ONCE IV Last administered on at 16:00; Start 06/25/17 at 16:00; Stop 06/25/17 at 17:00; Status DC Lisinopril (Prinivil) 10 mg DAILY PO Last administered on 07/02/17at 07:40; Start 06/26/17 at 09:00; Stop 07/02/17 at 09:06; Status DC Sodium Chloride 1,000 ml @ 1,000 mls/hr 1X ONCE IV Last administered on at 12:46; Start 06/27/17 at 11:30; Stop 06/27/17 at 12:29; Status DC Magnesium Oxide (Magnesium Oxide) 400 mg BIDACLD PO Last administered on at 16:29; Start 06/27/17 at 11:30 Duloxetine HCl (Cymbalta) 60 mg DAILY PO Last administered on 07/03/17at 07:57; Start 06/28/17 at 09:00 Divalproex Sodium (Depakote Er) 500 mg QHS PO Last administered on 06/30/17at 20 :01; Start 06/28/17 at 21:00; Stop 07/01/17 at 19:33; Status DC Divalproex Sodium (Depakote Er) 750 mg QHS PO Last administered on 07/02/17at 19 :39; Start 07/01/17 at 21:00 Lisinopril (Prinivil) 5 mg DAILY PO Last administered on 07/03/17at 08:00; Start 07/03/17 at 09:00 Active Scripts Active Reported Milk Of Magnesia (Magnesium Hydroxide) 2,400 Mg/10 Ml Oral.susp 2,400 Mg PO PRN DAILY PRN Bisacodyl 10 Mg Supp.rect 10 Mg RC PRN DAILY PRN Mag-Al Plus Suspension (Mag Hydrox/Al Hydrox/Simeth) 30 Ml Oral.susp 30 Ml PO PRN Q4HRS PRN Tylenol (Acetaminophen) 325 Mg Tablet 650 Mg PO PRN Q4HRS PRN Metoprolol Succinate ( Xl ) (Metoprolol Succinate) 25 Mg Tab.er.24h 12.5 Mg PO BID Lisinopril 20 Mg Tablet 20 Mg PO BID Vitamin D-3 (Cholecalciferol (Vitamin D3)) 2,000 Unit Tablet 2,000 Unit PO DAILY Potassium Chloride 10 Meq Capsule.er 10 Meq PO DAILY Oyster Shell Calcium (Calcium Carbonate) 500 Mg Tablet 1,000 Mg PO DAILY Myrbetriq (Mirabegron) 50 Mg Tab.er.24h 50 Mg PO DAILY Hydrochlorothiazide Tablet (Hydrochlorothiazide) 25 Mg Tablet 25 Mg PO DAILY Atorvastatin Calcium 10 Mg Tablet 10 Mg PO QHS Zyrtec (Cetirizine Hcl) 10 Mg Tablet 10 Mg PO HS Simvastatin 20 Mg Tablet 20 Mg PO HS Trazodone Hcl 100 Mg Tablet 100 Mg PO HS Zoloft (Sertraline Hcl) 50 Mg Tablet 50 Mg PO DAILY Prozac (Fluoxetine Hcl) 20 Mg Capsule 20 Mg PO DAILY Tylenol (Acetaminophen) 325 Mg Tablet 650 Mg PO DAILY I have reviewed the current psychotropics carefully including drug interactions. Risk benefit ratio favors no change other than as noted in my dictated progress note. Diagnosis: Problems: (1) Depression (2) Benign essential hypertension (3) Anxiety disorder (4) Major depressive disorder, recurrent episode (5) Asperger's disorder NADIRA ELLIS MD Jul 03, 2017 19:58
[2017-07-03] MEDS: DIVALPROEX ER 250 MG TAB.ER.24H. PO SCH (20:00)
[2017-07-04 06:10] VITALS: BP 111/61
[2017-07-04 07:45] LABS: BASO % 0 % (0-3); EOS # 0.2 x10^3/uL (0.0-0.7); EOS % 3 % (0-3); HEMATOCRIT 35.1 % (39.0-53.0); HEMOGLOBIN 11.6 g/dL (13.0-17.5); LYMPH % 32 % (24-48); MEAN CORPUSCULAR HEMOGLOBIN 29 pg (25-35); MEAN CORPUSCULAR HGB CONC 33 g/dL (31-37); MEAN CORPUSCULAR VOLUME 87 fL (79-100); MONO # 0.7 x10^3/uL (0.0-1.1); MONO % 12 % (0-9); NEUT # 3.4 x10^3uL (1.8-7.7); NEUT % 53 % (31-73); PLATELET COUNT 195 x10^3/uL (140-400); RED BLOOD COUNT 4.03 x10^6/uL (4.30-5.70); RED CELL DISTRIBUTION WIDTH 14.9 % (11.5-14.5); WHITE BLOOD COUNT 6.3 x10^3/uL (4.0-11.0)
[2017-07-04 08:01] LABS: ALBUMIN 2.8 g/dL (3.4-5.0); ALBUMIN/GLOBULIN RATIO 0.8 (1.0-1.7); ALK PHOS 67 U/L (46-116); ALT (SGPT) 15 U/L (16-63); ANION GAP 6 (6-14); AST (SGOT) 10 U/L (15-37); BLOOD UREA NITROGEN 23 mg/dL (8-26); BUN/CREATININE RATIO 21 (6-20); CALCIUM 9.1 mg/dL (8.5-10.1); CARBON DIOXIDE 33 mmol/L (21-32); CHLORIDE 103 mmol/L (98-107); CREATININE 1.1 mg/dL (0.7-1.3); GFR 65.8; GLUCOSE 85 mg/dL (70-99); POTASSIUM 4.5 mmol/L (3.5-5.1); SODIUM 142 mmol/L (136-145); TOTAL BILIRUBIN 0.3 mg/dL (0.2-1.0); TOTAL PROTEIN 6.5 g/dL (6.4-8.2)
[2017-07-04] MEDS: DULoxetine HCL 30 MG CAPSULE.DR PO SCH (08:01)
[2017-07-04] MEDS: LISINOPRIL 5 MG TABLET. PO SCH (08:01)
[2017-07-04] MEDS: CHOLECALCIFEROL (VITAMIN D3) 1,000 UNIT TABLET PO SCH (08:01)
[2017-07-04] MEDS: ACETAMINOPHEN 325 MG TABLET PO SCH (08:01)
[2017-07-04] MEDS: METOPROLOL TART IMMED RELEASE 25 MG TABLET PO SCH ×2 (08:02→19:59)
[2017-07-04] MEDS: CALCIUM CARBONATE 500 MG TABLET PO SCH (08:02)
[2017-07-04] MEDS: POTASSIUM CHLORIDE 10 MEQ TABLET.ER. PO SCH (08:02)
[2017-07-04] MEDS: MIRABEGRON 25 MG TAB.ER.24H PO SCH (08:03)
[2017-07-04] MEDS: MAGNESIUM OXIDE 400 MG TABLET PO SCH ×2 (08:03→16:55)
[2017-07-04 08:07] LABS: VAL ACID 41 mcg/mL (50-100)
--- NOTE | 2017-07-04 13:58 | PN ---
DATE: 07/03/2017 SUBJECTIVE: The patient was seen today, met with the staff, chart reviewed. The patient continues to isolate himself, poor eye contact. The patient is known to have explosive temper. The patient apparently threatened to choke himself or cut his throat prior to coming here. The patient also was in assisted living in [place]. Because of the behavior, he was transferred to [facility] placement. The patient continued to exhibit problems. The patient admits he is not happy with the change in the placement. He is feeling angry and also admits that he has frequent thoughts of suicide, wanting to hurt himself. The patient apparently prior to moving to [facility] he was in [facility], an assisted living. OBSERVATION: VITAL SIGNS: Temperature 98.2, blood pressure 100/60, pulse 81, respirations 18, O2 sat 94%. Slept about 7 hours last night. Staff reports no falls, no major medical issues. The patient's appetite is good. MEDICATIONS: The patient's current medications include Depakote 750 mg at night, Cymbalta 60 mg daily, trazodone 100 mg at night. The patient is not having any side effects to the medications. The patient's lab reviewed, which are all within normal range except for the BUN at time of admission was 57, current level of 27, creatinine 1.2, BUN and creatinine ratio of 23, glucose 105. The patient's Depakote level was 29. The patient responded participating in some of the activities. The patient is able to hold a conversation, but minimal interaction. ASSESSMENT: 1. Bipolar disorder type 1, depressed. 2. History of autism spectrum disorder. PLAN: Continue on the Depakote. We will consider to increase the dose if he continues to have problems. BLANCA SUAREZ MD DR: JENNIFER/marilyn JOB#: [id number] / [id number]
[2017-07-04 15:55] VITALS: BP 133/82
[2017-07-04] MEDS: traZODone 100 MG TABLET. PO SCH (19:58)
[2017-07-04] MEDS: CETIRIZINE HCL 10 MG TABLET PO SCH (19:58)
[2017-07-04] MEDS: DIVALPROEX ER 250 MG TAB.ER.24H. PO SCH (19:58)
[2017-07-04] MEDS: ATORVASTATIN CALCIUM 10 MG TABLET. PO SCH (19:58)
--- NOTE | 2017-07-05 00:46 | PN ---
DATE: 07/02/2017 This late entry, 07/02/2017, covers elements not covered in the initial note 07/02/2017. I met with the patient evening of 07/02/2017. The patient remains somewhat withdrawn, refuses meds at times, compliant at other times. REVIEW OF SYSTEMS: Ambulation impaired, in wheelchair. No CV, , pulmonary, eye, ENT system symptoms on review. MENTAL STATUS EXAM: Oriented to himself, situation, working on puzzles, crossword as I met with him. Abstraction fair, computation impaired, language function intact. Mood and affect still somewhat dysphoric with no suicidal ideation. IMPRESSION: Major depressive disorder, autistic spectrum disorder. Rest unchanged. PLAN: Continue current psychotropics for now. Adjust as clinically indicated. MAN Rubi ELLIS MD DR: CHRISTIANO/marilyn JOB#: [id number] / [id number]
[2017-07-05 05:58] VITALS: BP 131/68
[2017-07-05] MEDS: CHOLECALCIFEROL (VITAMIN D3) 1,000 UNIT TABLET PO SCH (07:54)
[2017-07-05] MEDS: DULoxetine HCL 30 MG CAPSULE.DR PO SCH (07:54)
[2017-07-05] MEDS: CALCIUM CARBONATE 500 MG TABLET PO SCH (07:54)
[2017-07-05] MEDS: ACETAMINOPHEN 325 MG TABLET PO SCH (07:56)
[2017-07-05] MEDS: POTASSIUM CHLORIDE 10 MEQ TABLET.ER. PO SCH (07:56)
[2017-07-05] MEDS: LISINOPRIL 5 MG TABLET. PO SCH (07:56)
[2017-07-05] MEDS: METOPROLOL TART IMMED RELEASE 25 MG TABLET PO SCH ×2 (07:57→19:58)
[2017-07-05] MEDS: MAGNESIUM OXIDE 400 MG TABLET PO SCH ×2 (08:00→16:36)
[2017-07-05] MEDS: MIRABEGRON 25 MG TAB.ER.24H PO SCH (08:00)
[2017-07-05 15:55] VITALS: BP 123/69
--- NOTE | 2017-07-05 16:44 | PN ---
DATE: 07/04/2017 SUBJECTIVE: The patient was seen today, met with the staff, and chart reviewed. The patient continues to have behavior problems, but no major change. The patient is constantly verbalized suicidal thoughts and plans in the past. Recently is not mentioned any negative thinking. The patient's Depakote level was 41. The patient continues to complain of feeling depressed, not happy with his living arrangement prior to coming here. OBSERVATION: VITAL SIGNS: Temperature 98.2, blood pressure 111/61, pulse 81, respiration 18, O2 sat 92%. Slept about 5 hours last night. The patient is not presenting with any major medical complaints. No falls. The patient's current medications include Depakote 750 mg at night, Cymbalta 60 mg daily, trazodone 100 mg at night. The patient's lab reviewed. The patient is not having any side effects to the medications. ASSESSMENT: 1. Bipolar disorder type 1, depressed. 2. History of autism spectrum disorder. PLAN: To continue with the medications and adjust dose accordingly. BLANCA SUAREZ MD DR: JENNIFER/marilyn JOB#: [id number] / [id number]
[2017-07-05] MEDS: traZODone 100 MG TABLET. PO SCH (19:46)
[2017-07-05] MEDS: ATORVASTATIN CALCIUM 10 MG TABLET. PO SCH (19:47)
[2017-07-05] MEDS: DIVALPROEX ER 250 MG TAB.ER.24H. PO SCH (19:47)
[2017-07-05] MEDS: CETIRIZINE HCL 10 MG TABLET PO SCH (19:47)
[2017-07-06 06:02] VITALS: BP 116/69
--- NOTE | 2017-07-06 07:15 | PN ---
DATE: 07/05/2017 SUBJECTIVE: The patient was seen today, met with the staff, chart reviewed. The patient is not presenting with any major problems, not expressing any suicidal thoughts. The patient's behavior has improved. OBSERVATION: Vital signs stable. The patient's Depakote level was 41. The patient is not having any side effects to the medications. The patient's appetite and sleep have improved. The patient will continue on these medications: Depakote 750 mg at night, Cymbalta 60 mg daily, trazodone 100 mg at night. ASSESSMENT: Bipolar disorder type 1, depressed. History of autism spectrum disorder. BLANCA SUAREZ MD DR: JENNIFER/marilyn JOB#: [id number] / [id number]
[2017-07-06] MEDS: DULoxetine HCL 30 MG CAPSULE.DR PO SCH (08:36)
[2017-07-06] MEDS: LISINOPRIL 5 MG TABLET. PO SCH (08:36)
[2017-07-06] MEDS: METOPROLOL TART IMMED RELEASE 25 MG TABLET PO SCH ×2 (08:36→20:35)
[2017-07-06] MEDS: POTASSIUM CHLORIDE 10 MEQ TABLET.ER. PO SCH (08:36)
[2017-07-06] MEDS: CALCIUM CARBONATE 500 MG TABLET PO SCH (08:36)
[2017-07-06] MEDS: CHOLECALCIFEROL (VITAMIN D3) 1,000 UNIT TABLET PO SCH (08:37)
[2017-07-06] MEDS: ACETAMINOPHEN 325 MG TABLET PO SCH (08:37)
[2017-07-06] MEDS: MAGNESIUM OXIDE 400 MG TABLET PO SCH ×2 (12:30→17:32)
[2017-07-06] MEDS: MIRABEGRON 25 MG TAB.ER.24H PO SCH (12:31)
[2017-07-06 15:59] VITALS: BP 126/74
[2017-07-06] MEDS: CETIRIZINE HCL 10 MG TABLET PO SCH (20:34)
[2017-07-06] MEDS: DIVALPROEX ER 250 MG TAB.ER.24H. PO SCH (20:34)
[2017-07-06] MEDS: traZODone 100 MG TABLET. PO SCH (20:36)
[2017-07-06] MEDS: ATORVASTATIN CALCIUM 10 MG TABLET. PO SCH (20:36)
--- NOTE | 2017-07-07 03:50 | PN ---
DATE: 07/06/2017 PSYCHIATRIC PROGRESS NOTE SUBJECTIVE: The patient was seen today, met with the staff, chart reviewed. The patient continues to show improvement. Staff reports no major incidents on the unit. Has not verbalized any suicidal thoughts or plans: Vital signs: Temperature 98.8, blood pressure 116/69, pulse 83, respirations 16, O2 sat 93%. Slept about 6 hours last night. The patient did not have any falls, not having any side effects to the medications. MEDICATIONS: He is currently on Depakote 750 mg at night, Cymbalta 60 mg daily and the trazodone 100 mg at night. ASSESSMENT: 1. Bipolar disorder type 1, depressed. 2. History of autism spectrum disorder. PLAN: Continue with the current medications. We will consider discharge. She is able to stay symptom free for at least 3 days. BLANCA SUAREZ MD DR: JENNIFER/marilyn JOB#: [id number] / [id number]
[2017-07-07 06:07] VITALS: BP 135/82
[2017-07-07] MEDS: LISINOPRIL 5 MG TABLET. PO SCH (07:38)
[2017-07-07] MEDS: DULoxetine HCL 30 MG CAPSULE.DR PO SCH (07:38)
[2017-07-07] MEDS: CALCIUM CARBONATE 500 MG TABLET PO SCH (07:38)
[2017-07-07] MEDS: ACETAMINOPHEN 325 MG TABLET PO SCH (07:38)
[2017-07-07] MEDS: CHOLECALCIFEROL (VITAMIN D3) 1,000 UNIT TABLET PO SCH (07:38)
[2017-07-07] MEDS: METOPROLOL TART IMMED RELEASE 25 MG TABLET PO SCH ×2 (07:39→19:21)
[2017-07-07] MEDS: MIRABEGRON 25 MG TAB.ER.24H PO SCH (07:39)
[2017-07-07] MEDS: POTASSIUM CHLORIDE 10 MEQ TABLET.ER. PO SCH (07:41)
[2017-07-07] MEDS: MAGNESIUM OXIDE 400 MG TABLET PO SCH ×2 (11:30→16:52)
[2017-07-07 15:24] VITALS: BP 121/73
[2017-07-07] MEDS: ACETAMINOPHEN 325 MG TABLET PO PRN (16:53)
[2017-07-07] MEDS: traZODone 100 MG TABLET. PO SCH (19:19)
[2017-07-07] MEDS: CETIRIZINE HCL 10 MG TABLET PO SCH (19:21)
[2017-07-07] MEDS: DIVALPROEX ER 250 MG TAB.ER.24H. PO SCH (19:21)
[2017-07-07] MEDS: ATORVASTATIN CALCIUM 10 MG TABLET. PO SCH (19:21)
[2017-07-08 06:10] VITALS: BP 144/77
[2017-07-08] MEDS: CHOLECALCIFEROL (VITAMIN D3) 1,000 UNIT TABLET PO SCH (07:53)
[2017-07-08] MEDS: LISINOPRIL 5 MG TABLET. PO SCH (07:54)
[2017-07-08] MEDS: POTASSIUM CHLORIDE 10 MEQ TABLET.ER. PO SCH (07:54)
[2017-07-08] MEDS: DULoxetine HCL 30 MG CAPSULE.DR PO SCH (07:54)
[2017-07-08] MEDS: METOPROLOL TART IMMED RELEASE 25 MG TABLET PO SCH ×2 (07:54→21:00)
[2017-07-08] MEDS: ACETAMINOPHEN 325 MG TABLET PO SCH (07:54)
[2017-07-08] MEDS: MIRABEGRON 25 MG TAB.ER.24H PO SCH (07:55)
[2017-07-08] MEDS: CALCIUM CARBONATE 500 MG TABLET PO SCH (07:55)
[2017-07-08] MEDS: CHOLECALCIFEROL (VITAMIN D3) 50,000 UNIT CAPSULE PO SCH (07:57)
[2017-07-08] MEDS: MAGNESIUM OXIDE 400 MG TABLET PO SCH ×2 (11:30→18:25)
--- NOTE | 2017-07-08 14:20 | PN ---
DATE: 07/07/2017 SUBJECTIVE: The patient was seen today, met with the staff, chart reviewed. The patient continues to show improvement. Has not presented with any major problems and also is wanting to go home. OBSERVATION: VITAL SIGNS: Temperature 98.5, repeat 98.8; blood pressure 135/82; pulse 79; respirations 16; O2 sat 98%. GENERAL: Slept about 8 hours last night. The patient's appetite has improved. MEDICATIONS: The patient's current medications include Depakote 750 mg at night, Cymbalta 60 mg daily and trazodone 100 mg at night. ASSESSMENT: 1. Bipolar disorder type 1, depressed. 2. History of autism spectrum disorder. PLAN: To continue with the treatment. The patient will be discharged in the next few days and the manager social will work on the discharge plan. BLANCA SUAREZ MD DR: JENNIFER/marilyn JOB#: [id number] / [id number]
[2017-07-08 15:59] VITALS: BP 127/70
[2017-07-08] MEDS: DIVALPROEX ER 250 MG TAB.ER.24H. PO SCH (20:59)
[2017-07-08] MEDS: CETIRIZINE HCL 10 MG TABLET PO SCH (20:59)
[2017-07-08] MEDS: traZODone 100 MG TABLET. PO SCH (21:00)
[2017-07-08] MEDS: ATORVASTATIN CALCIUM 10 MG TABLET. PO SCH (21:00)
[2017-07-09 06:08] VITALS: BP 150/79
[2017-07-09] MEDS: MIRABEGRON 25 MG TAB.ER.24H PO SCH (07:39)
[2017-07-09] MEDS: CHOLECALCIFEROL (VITAMIN D3) 1,000 UNIT TABLET PO SCH (07:39)
[2017-07-09] MEDS: MAGNESIUM OXIDE 400 MG TABLET PO SCH ×2 (07:39→17:51)
[2017-07-09] MEDS: CALCIUM CARBONATE 500 MG TABLET PO SCH (07:40)
[2017-07-09] MEDS: DULoxetine HCL 30 MG CAPSULE.DR PO SCH (07:40)
[2017-07-09] MEDS: ACETAMINOPHEN 325 MG TABLET PO SCH (07:40)
[2017-07-09] MEDS: LISINOPRIL 5 MG TABLET. PO SCH (07:40)
[2017-07-09] MEDS: METOPROLOL TART IMMED RELEASE 25 MG TABLET PO SCH ×2 (07:42→20:02)
[2017-07-09] MEDS: POTASSIUM CHLORIDE 10 MEQ TABLET.ER. PO SCH (07:43)
[2017-07-09 16:18] VITALS: BP 134/67
[2017-07-09] MEDS ORDERED: CHOL500021 PO (16:47)
[2017-07-09] MEDS ORDERED: DIVA500T4 PO (16:48)
[2017-07-09] MEDS ORDERED: LISI-338 PO (16:49)
[2017-07-09] MEDS ORDERED: DULO60CA6 PO (16:49)
[2017-07-09] MEDS ORDERED: MAGN400T3 PO (16:50)
--- NOTE | 2017-07-09 19:53 | PDOC ---
Exam Note: Brian Note: Please also refer to the separate dictated note~for this date of service dictated separately.~Patient seen individually. Discussed the patient with Nursing staff reviewed the chart.~Reviewed interim history and current functioning. Reviewed vital signs,~Labs/ Radiology~and current medications noted below. Continue current treatment with the changes noted in the dictated addendum note Assessment: Vital Signs: Vital Signs Date Time Temp Pulse Resp B/P (MAP) Pulse Ox O2 Delivery O2 Flow Rate FiO2 07/09/17 16:18 98.0 76 19 134/67 (89) 97 07/06/17 15:59 Room Air I&O Intake and Output 07/09/17 07:00 Intake Total 720 ml Balance 720 ml Intake Oral 720 ml Current Medications: Meds: Current Medications Acetaminophen (Tylenol) 650 mg PRN Q6HRS PRN PO PAIN / TEMP Last administered on 07/07/17at 16:53; Start 06/22/17 at 22:45 Multi-Ingredient Ointment (Analgesic [place]) 1 kermit PRN QID PRN TP MUSCLE PAIN; Start 06/22/17 at 22:45 Al Hydroxide/Mg Hydroxide (Mylanta Plus Xs) 15 ml PRN AFTMEALHC PRN PO DYSPEPSIA; Start 06/22/17 at 22:45 Magnesium Hydroxide (Milk Of Magnesia) 2,400 mg PRN QHS PRN PO CONSTIPATION; Start 06/22/17 at 22:45 Fluoxetine HCl (PROzac) 20 mg DAILY PO Last administered on 06/23/17at 08:15; Start 06/23/17 at 09:00; Stop 06/23/17 at 19:29; Status DC Sertraline HCl (Zoloft) 50 mg DAILY PO Last administered on 06/23/17at 08:11; Start 06/23/17 at 09:00; Stop 06/23/17 at 19:29; Status DC Trazodone HCl (Desyrel) 100 mg HS PO Last administered on 07/08/17at 21:00; Start 06/23/17 at 21:00 Acetaminophen (Tylenol) 650 mg DAILY PO Last administered on 07/09/17at 07:40; Start 06/23/17 at 09:00 Acetaminophen (Tylenol) 650 mg PRN Q4HRS PRN PO PAIN / TEMP; Start 06/22/17 at 23:00; Status UNV Atorvastatin Calcium (Lipitor) 10 mg QHS PO Last administered on 07/08/17at 21:00 ; Start 06/23/17 at 21:00 Bisacodyl (Dulcolax Supp) 10 mg PRN DAILY PRN RC CONSTIPATION; Start 06/22/17 at 23:00 Calcium Carbonate/ Glycine (Oscal) 1,000 mg DAILY PO Last administered on 07:40; Start 06/23/17 at 09:00 Cetirizine HCl (ZyrTEC) 10 mg HS PO Last administered on 07/08/17at 20:59; Start 06/23/17 at 21:00 Hydrochlorothiazide (Hydrodiuril) 25 mg DAILY PO Last administered on at 08:11; Start 06/23/17 at 09:00; Stop 06/25/17 at 17:16; Status DC Lisinopril (Prinivil) 20 mg BID PO ; Start 06/23/17 at 09:00; Stop 06/24/17 at 18:04; Status DC Metoprolol Tartrate (Lopressor) 12.5 mg BID PO Last administered on 07/09/17at 07 :42; Start 06/23/17 at 09:00 Simvastatin (Zocor) 20 mg HS PO ; Start 06/23/17 at 21:00; Status UNV Vitamin D (Vitamin D3) 2,000 unit DAILY PO Last administered on 07/09/17at 07:39 ; Start 06/23/17 at 09:00 Non-Formulary Medication 30 ml PRN Q4HRS PRN PO DYSPEPSIA; Start 06/22/17 at 23 :00; Status UNV Non-Formulary Medication 2,400 mg PRN DAILY PRN PO CONSTIPATION; Start at 23:00; Status UNV Non-Formulary Medication 50 mg DAILY PO ; Start 06/23/17 at 09:00; Status UNV Potassium Chloride (Klor-Con) 10 meq DAILYWBKFT PO Last administered on at 07:43; Start 06/23/17 at 08:00 Influenza Virus Vaccine Quadrival (Fluarix Quad [id number] Syringe) 0.5 ml ONCE ONCE VAX IM Last administered on 06/23/17at 09:50; Start 06/23/17 at 09:00; Stop 06/23/17 at 09:01; Status DC Pneumoccal 13-Valent Conj Vacc (Prevnar 13) 0.5 ml ONCE ONCE VAX IM ; Start at 09:00; Stop 06/23/17 at 09:01; Status UNV Pneumococcal Polyvalent Vaccine (Pneumovax 23) 0.5 ml ONCE ONCE VAX IM Last administered on 06/23/17at 09:51; Start 06/23/17 at 09:00; Stop 06/23/17 at 09:01 ; Status DC Duloxetine HCl (Cymbalta) 30 mg DAILY PO Last administered on 06/27/17at 09:59; Start 06/24/17 at 09:00; Stop 06/27/17 at 15:39; Status DC Vitamin D (Vitamin D3) 50,000 unit WEEKLY PO ; Start 06/24/17 at 18:00; Stop at 18:38; Status DC Lisinopril (Prinivil) 20 mg DAILY PO ; Start 06/25/17 at 09:00; Stop 06/25/17 at 17:16; Status DC Vitamin D (Vitamin D3) 50,000 unit WEEKLY PO Last administered on 07/08/17at 07: 57; Start 06/24/17 at 20:00 Sodium Chloride 1,000 ml @ 1,000 mls/hr 1X ONCE IV Last administered on at 16:00; Start 06/25/17 at 16:00; Stop 06/25/17 at 17:00; Status DC Lisinopril (Prinivil) 10 mg DAILY PO Last administered on 07/02/17at 07:40; Start 06/26/17 at 09:00; Stop 07/02/17 at 09:06; Status DC Sodium Chloride 1,000 ml @ 1,000 mls/hr 1X ONCE IV Last administered on at 12:46; Start 06/27/17 at 11:30; Stop 06/27/17 at 12:29; Status DC Magnesium Oxide (Magnesium Oxide) 400 mg BIDACLD PO Last administered on at 17:51; Start 06/27/17 at 11:30 Duloxetine HCl (Cymbalta) 60 mg DAILY PO Last administered on 07/09/17at 07:40; Start 06/28/17 at 09:00 Divalproex Sodium (Depakote Er) 500 mg QHS PO Last administered on 06/30/17at 20 :01; Start 06/28/17 at 21:00; Stop 07/01/17 at 19:33; Status DC Divalproex Sodium (Depakote Er) 750 mg QHS PO Last administered on 07/08/17at 20: 59; Start 07/01/17 at 21:00 Lisinopril (Prinivil) 5 mg DAILY PO Last administered on 07/09/17at 07:40; Start 07/03/17 at 09:00 Active Scripts Active Reported Magnesium Oxide 400 Mg Tablet 400 Mg PO BIDACLD Lisinopril 5 Mg Tablet 5 Mg PO DAILY Cymbalta (Duloxetine Hcl) 60 Mg Capsule.dr 60 Mg PO DAILY Depakote Er (Divalproex Sodium) 500 Mg Tab.er.24h 750 Mg PO D3-50 (Cholecalciferol (Vitamin D3)) 50,000 Unit Capsule 50,000 Unit PO QSA Milk Of Magnesia (Magnesium Hydroxide) 2,400 Mg/10 Ml Oral.susp 2,400 Mg PO PRN DAILY PRN Bisacodyl 10 Mg Supp.rect 10 Mg RC PRN DAILY PRN Mag-Al Plus Suspension (Mag Hydrox/Al Hydrox/Simeth) 30 Ml Oral.susp 30 Ml PO PRN Q4HRS PRN Tylenol (Acetaminophen) 325 Mg Tablet 650 Mg PO PRN Q4HRS PRN Metoprolol Succinate ( Xl ) (Metoprolol Succinate) 25 Mg Tab.er.24h 12.5 Mg PO BID Lisinopril 20 Mg Tablet 20 Mg PO BID Vitamin D-3 (Cholecalciferol (Vitamin D3)) 2,000 Unit Tablet 2,000 Unit PO DAILY Potassium Chloride 10 Meq Capsule.er 10 Meq PO DAILY Oyster Shell Calcium (Calcium Carbonate) 500 Mg Tablet 1,000 Mg PO DAILY Myrbetriq (Mirabegron) 50 Mg Tab.er.24h 50 Mg PO DAILY Hydrochlorothiazide Tablet (Hydrochlorothiazide) 25 Mg Tablet 25 Mg PO DAILY Atorvastatin Calcium 10 Mg Tablet 10 Mg PO QHS Zyrtec (Cetirizine Hcl) 10 Mg Tablet 10 Mg PO HS Simvastatin 20 Mg Tablet 20 Mg PO HS Trazodone Hcl 100 Mg Tablet 100 Mg PO HS Zoloft (Sertraline Hcl) 50 Mg Tablet 50 Mg PO DAILY Prozac (Fluoxetine Hcl) 20 Mg Capsule 20 Mg PO DAILY Tylenol (Acetaminophen) 325 Mg Tablet 650 Mg PO DAILY I have reviewed the current psychotropics carefully including drug interactions. Risk benefit ratio favors no change other than as noted in my dictated progress note. Diagnosis: Problems: (1) Depression (2) Benign essential hypertension (3) Anxiety disorder (4) Major depressive disorder, recurrent episode (5) Asperger's disorder NADIRA ELLIS MD Jul 09, 2017 19:53
[2017-07-09] MEDS: traZODone 100 MG TABLET. PO SCH (20:01)
[2017-07-09] MEDS: DIVALPROEX ER 500 MG TAB.ER.24H PO SCH (20:01)
[2017-07-09] MEDS: ATORVASTATIN CALCIUM 10 MG TABLET. PO SCH (20:01)
[2017-07-09] MEDS: CETIRIZINE HCL 10 MG TABLET PO SCH (20:16)
--- NOTE | 2017-07-09 22:45 | PN ---
DATE: 07/08/2017 I am covering for Dr. Rubio. SUBJECTIVE: The patient has been agitated today. He is restless and autistic. However, on occasions, he becomes very calm, and cooperative. He still has intermittent suicidal ideation. He denies it. He denies any other medical problems. OBJECTIVE: GENERAL: Well-developed, well-nourished male, not in acute distress. VITAL SIGNS: Blood pressure 144/77, respiratory rate 18, pulse is 81 and regular, temperature 98, oxygen saturation 95% on room air. HEENT: Normocephalic, atraumatic, otherwise unremarkable. NECK: Supple. Negative for carotid bruit, lymphadenopathy or thyromegaly. LUNGS: Clear to A and P. CARDIOVASCULAR: Regular rhythm, normal S1, S2. ABDOMEN: Soft. Bowel sounds positive. EXTREMITIES: Negative for cyanosis, clubbing, pitting edema. NEUROLOGIC: The patient is awake, oriented to himself. Cranial nerves intact. No focal motor or sensory deficit. Deep tendon reflexes were hypoactive. IMPRESSION: 1. Autism, depressions and bipolar disorder type 1. 2. Multiple medical problems include osteoarthritis, hypertension, hyperlipidemia and prostate cancer. RECOMMENDATIONS: Continue with current psychiatric and medical management. M Star FINLEY MD DR: QUIN/marilyn JOB#: [id number] / [id number]
[2017-07-10 06:03] VITALS: BP 138/68
[2017-07-10] MEDS: CHOLECALCIFEROL (VITAMIN D3) 1,000 UNIT TABLET PO SCH (08:05)
[2017-07-10] MEDS: CALCIUM CARBONATE 500 MG TABLET PO SCH (08:05)
[2017-07-10] MEDS: METOPROLOL TART IMMED RELEASE 25 MG TABLET PO SCH ×2 (08:05→20:03)
[2017-07-10] MEDS: ACETAMINOPHEN 325 MG TABLET PO SCH (08:05)
[2017-07-10] MEDS: LISINOPRIL 5 MG TABLET. PO SCH (08:05)
[2017-07-10] MEDS: POTASSIUM CHLORIDE 10 MEQ TABLET.ER. PO SCH (08:06)
[2017-07-10] MEDS: MIRABEGRON 25 MG TAB.ER.24H PO SCH (08:06)
[2017-07-10] MEDS: DULoxetine HCL 30 MG CAPSULE.DR PO SCH (08:06)
[2017-07-10] MEDS: MAGNESIUM OXIDE 400 MG TABLET PO SCH ×2 (08:07→17:08)
[2017-07-10 16:22] VITALS: BP 119/68
[2017-07-10] MEDS: CETIRIZINE HCL 10 MG TABLET PO SCH (19:59)
[2017-07-10] MEDS: ATORVASTATIN CALCIUM 10 MG TABLET. PO SCH (19:59)
[2017-07-10] MEDS: DIVALPROEX ER 500 MG TAB.ER.24H PO SCH (20:00)
[2017-07-10] MEDS: traZODone 100 MG TABLET. PO SCH (20:00)
--- NOTE | 2017-07-10 21:15 | PDOC ---
Exam Note: Brian Note: Please also refer to the separate dictated note~for this date of service dictated separately.~Patient seen individually. Discussed the patient with Nursing staff reviewed the chart.~Reviewed interim history and current functioning. Reviewed vital signs,~Labs/ Radiology~and current medications noted below. Continue current treatment with the changes noted in the dictated addendum note Assessment: Vital Signs: Vital Signs Date Time Temp Pulse Resp B/P (MAP) Pulse Ox O2 Delivery O2 Flow Rate FiO2 07/10/17 20:03 79 119/68 07/10/17 16:22 97.9 20 94 07/06/17 15:59 Room Air I&O Intake and Output 07/10/17 07:00 Intake Total 1040 ml Balance 1040 ml Intake Oral 1040 ml # Voids 2 # Bowel Movements 1 Current Medications: Meds: Current Medications Acetaminophen (Tylenol) 650 mg PRN Q6HRS PRN PO PAIN / TEMP Last administered on 07/07/17at 16:53; Start 06/22/17 at 22:45 Multi-Ingredient Ointment (Analgesic [place]) 1 kermit PRN QID PRN TP MUSCLE PAIN; Start 06/22/17 at 22:45 Al Hydroxide/Mg Hydroxide (Mylanta Plus Xs) 15 ml PRN AFTMEALHC PRN PO DYSPEPSIA; Start 06/22/17 at 22:45 Magnesium Hydroxide (Milk Of Magnesia) 2,400 mg PRN QHS PRN PO CONSTIPATION; Start 06/22/17 at 22:45 Fluoxetine HCl (PROzac) 20 mg DAILY PO Last administered on 06/23/17at 08:15; Start 06/23/17 at 09:00; Stop 06/23/17 at 19:29; Status DC Sertraline HCl (Zoloft) 50 mg DAILY PO Last administered on 06/23/17at 08:11; Start 06/23/17 at 09:00; Stop 06/23/17 at 19:29; Status DC Trazodone HCl (Desyrel) 100 mg HS PO Last administered on 07/10/17at 20:00; Start 06/23/17 at 21:00 Acetaminophen (Tylenol) 650 mg DAILY PO Last administered on 07/10/17at 08:05; Start 06/23/17 at 09:00 Acetaminophen (Tylenol) 650 mg PRN Q4HRS PRN PO PAIN / TEMP; Start 06/22/17 at 23:00; Status UNV Atorvastatin Calcium (Lipitor) 10 mg QHS PO Last administered on 07/10/17at 19:59 ; Start 06/23/17 at 21:00 Bisacodyl (Dulcolax Supp) 10 mg PRN DAILY PRN RC CONSTIPATION; Start 06/22/17 at 23:00 Calcium Carbonate/ Glycine (Oscal) 1,000 mg DAILY PO Last administered on at 08:05; Start 06/23/17 at 09:00 Cetirizine HCl (ZyrTEC) 10 mg HS PO Last administered on 07/10/17at 19:59; Start 06/23/17 at 21:00 Hydrochlorothiazide (Hydrodiuril) 25 mg DAILY PO Last administered on at 08:11; Start 06/23/17 at 09:00; Stop 06/25/17 at 17:16; Status DC Lisinopril (Prinivil) 20 mg BID PO ; Start 06/23/17 at 09:00; Stop 06/24/17 at 18:04; Status DC Metoprolol Tartrate (Lopressor) 12.5 mg BID PO Last administered on 07/10/17at 20 :03; Start 06/23/17 at 09:00 Simvastatin (Zocor) 20 mg HS PO ; Start 06/23/17 at 21:00; Status UNV Vitamin D (Vitamin D3) 2,000 unit DAILY PO Last administered on 07/10/17at 08:05 ; Start 06/23/17 at 09:00 Non-Formulary Medication 30 ml PRN Q4HRS PRN PO DYSPEPSIA; Start 06/22/17 at 23 :00; Status UNV Non-Formulary Medication 2,400 mg PRN DAILY PRN PO CONSTIPATION; Start at 23:00; Status UNV Non-Formulary Medication 50 mg DAILY PO ; Start 06/23/17 at 09:00; Status UNV Potassium Chloride (Klor-Con) 10 meq DAILYWBKFT PO Last administered on at 08:06; Start 06/23/17 at 08:00 Influenza Virus Vaccine Quadrival (Fluarix Quad [id number] Syringe) 0.5 ml ONCE ONCE VAX IM Last administered on 06/23/17at 09:50; Start 06/23/17 at 09:00; Stop 06/23/17 at 09:01; Status DC Pneumoccal 13-Valent Conj Vacc (Prevnar 13) 0.5 ml ONCE ONCE VAX IM ; Start at 09:00; Stop 06/23/17 at 09:01; Status UNV Pneumococcal Polyvalent Vaccine (Pneumovax 23) 0.5 ml ONCE ONCE VAX IM Last administered on 06/23/17at 09:51; Start 06/23/17 at 09:00; Stop 06/23/17 at 09:01 ; Status DC Duloxetine HCl (Cymbalta) 30 mg DAILY PO Last administered on 06/27/17at 09:59; Start 06/24/17 at 09:00; Stop 06/27/17 at 15:39; Status DC Vitamin D (Vitamin D3) 50,000 unit WEEKLY PO ; Start 06/24/17 at 18:00; Stop at 18:38; Status DC Lisinopril (Prinivil) 20 mg DAILY PO ; Start 06/25/17 at 09:00; Stop 06/25/17 at 17:16; Status DC Vitamin D (Vitamin D3) 50,000 unit WEEKLY PO Last administered on 07/08/17at 07: 57; Start 06/24/17 at 20:00 Sodium Chloride 1,000 ml @ 1,000 mls/hr 1X ONCE IV Last administered on at 16:00; Start 06/25/17 at 16:00; Stop 06/25/17 at 17:00; Status DC Lisinopril (Prinivil) 10 mg DAILY PO Last administered on 07/02/17at 07:40; Start 06/26/17 at 09:00; Stop 07/02/17 at 09:06; Status DC Sodium Chloride 1,000 ml @ 1,000 mls/hr 1X ONCE IV Last administered on at 12:46; Start 06/27/17 at 11:30; Stop 06/27/17 at 12:29; Status DC Magnesium Oxide (Magnesium Oxide) 400 mg BIDACLD PO Last administered on at 17:08; Start 06/27/17 at 11:30 Duloxetine HCl (Cymbalta) 60 mg DAILY PO Last administered on 07/10/17at 08:06; Start 06/28/17 at 09:00 Divalproex Sodium (Depakote Er) 500 mg QHS PO Last administered on 06/30/17at 20 :01; Start 06/28/17 at 21:00; Stop 07/01/17 at 19:33; Status DC Divalproex Sodium (Depakote Er) 750 mg QHS PO Last administered on 07/08/17at 20: 59; Start 07/01/17 at 21:00; Stop 07/09/17 at 19:55; Status DC Lisinopril (Prinivil) 5 mg DAILY PO Last administered on 07/10/17at 08:05; Start 07/03/17 at 09:00 Divalproex Sodium (Depakote Er) 1,000 mg QHS PO Last administered on 07/10/17at 20:00; Start 07/09/17 at 21:00 Active Scripts Active Reported Magnesium Oxide 400 Mg Tablet 400 Mg PO BIDACLD Lisinopril 5 Mg Tablet 5 Mg PO DAILY Cymbalta (Duloxetine Hcl) 60 Mg Capsule.dr 60 Mg PO DAILY Depakote Er (Divalproex Sodium) 500 Mg Tab.er.24h 750 Mg PO D3-50 (Cholecalciferol (Vitamin D3)) 50,000 Unit Capsule 50,000 Unit PO QSA Milk Of Magnesia (Magnesium Hydroxide) 2,400 Mg/10 Ml Oral.susp 2,400 Mg PO PRN DAILY PRN Bisacodyl 10 Mg Supp.rect 10 Mg RC PRN DAILY PRN Mag-Al Plus Suspension (Mag Hydrox/Al Hydrox/Simeth) 30 Ml Oral.susp 30 Ml PO PRN Q4HRS PRN Tylenol (Acetaminophen) 325 Mg Tablet 650 Mg PO PRN Q4HRS PRN Metoprolol Succinate ( Xl ) (Metoprolol Succinate) 25 Mg Tab.er.24h 12.5 Mg PO BID Lisinopril 20 Mg Tablet 20 Mg PO BID Vitamin D-3 (Cholecalciferol (Vitamin D3)) 2,000 Unit Tablet 2,000 Unit PO DAILY Potassium Chloride 10 Meq Capsule.er 10 Meq PO DAILY Oyster Shell Calcium (Calcium Carbonate) 500 Mg Tablet 1,000 Mg PO DAILY Myrbetriq (Mirabegron) 50 Mg Tab.er.24h 50 Mg PO DAILY Hydrochlorothiazide Tablet (Hydrochlorothiazide) 25 Mg Tablet 25 Mg PO DAILY Atorvastatin Calcium 10 Mg Tablet 10 Mg PO QHS Zyrtec (Cetirizine Hcl) 10 Mg Tablet 10 Mg PO HS Simvastatin 20 Mg Tablet 20 Mg PO HS Trazodone Hcl 100 Mg Tablet 100 Mg PO HS Zoloft (Sertraline Hcl) 50 Mg Tablet 50 Mg PO DAILY Prozac (Fluoxetine Hcl) 20 Mg Capsule 20 Mg PO DAILY Tylenol (Acetaminophen) 325 Mg Tablet 650 Mg PO DAILY I have reviewed the current psychotropics carefully including drug interactions. Risk benefit ratio favors no change other than as noted in my dictated progress note. Diagnosis: Problems: (1) Depression (2) Benign essential hypertension (3) Anxiety disorder (4) Major depressive disorder, recurrent episode (5) Asperger's disorder NADIRA ELLIS MD Jul 10, 2017 21:15
--- NOTE | 2017-07-10 23:34 | PN ---
DATE: 07/09/2017 This is a late entry for 07/09/2017 and covers elements not covered in my initial note of 07/09/2017. SUBJECTIVE: The patient was seen individually evening of 07/09/2017. The patient remains somewhat depressed, but denies suicidal ideation. REVIEW OF SYSTEMS: Ambulation impaired, in wheelchair. No CV, , pulmonary, eye system symptoms on review. MENTAL STATUS EXAM: Oriented to himself and situation. Speech has moderate latency, is coherent. Abstraction fair, computation impaired, language function intact. Mood and affect improved, still depressed, but better than before. LABORATORY DATA: Reviewed. IMPRESSION: Major depressive disorder, recurrent, in partial remission. PLAN: Valproic acid level subtherapeutic at 41, increase Depakote ER from 750 at bedtime to 1000 mg at bedtime. Check CBC, CMP, valproic acid level in 3 days. Continue rest unchanged. MAN Rubi ELLIS MD DR: CHRISTIANO/marilyn JOB#: [id number] / [id number]
[2017-07-11 05:49] VITALS: BP 144/75
[2017-07-11] MEDS: METOPROLOL TART IMMED RELEASE 25 MG TABLET PO SCH ×2 (07:48→19:29)
[2017-07-11] MEDS: CHOLECALCIFEROL (VITAMIN D3) 1,000 UNIT TABLET PO SCH (07:48)
[2017-07-11] MEDS: MAGNESIUM OXIDE 400 MG TABLET PO SCH ×2 (07:48→17:01)
[2017-07-11] MEDS: CALCIUM CARBONATE 500 MG TABLET PO SCH (07:49)
[2017-07-11] MEDS: ACETAMINOPHEN 325 MG TABLET PO SCH (07:49)
[2017-07-11] MEDS: DULoxetine HCL 30 MG CAPSULE.DR PO SCH (07:49)
[2017-07-11] MEDS: LISINOPRIL 5 MG TABLET. PO SCH (07:49)
[2017-07-11] MEDS: MIRABEGRON 25 MG TAB.ER.24H PO SCH (07:49)
[2017-07-11] MEDS: POTASSIUM CHLORIDE 10 MEQ TABLET.ER. PO SCH (07:49)
[2017-07-11 15:47] VITALS: BP 114/78
[2017-07-11] MEDS: DIVALPROEX ER 500 MG TAB.ER.24H PO SCH (19:28)
[2017-07-11] MEDS: traZODone 100 MG TABLET. PO SCH (19:29)
[2017-07-11] MEDS: CETIRIZINE HCL 10 MG TABLET PO SCH (19:30)
[2017-07-11] MEDS: ATORVASTATIN CALCIUM 10 MG TABLET. PO SCH (19:30)
--- NOTE | 2017-07-11 20:12 | PDOC ---
Exam Note: Brian Note: Please also refer to the separate dictated note~for this date of service dictated separately.~Patient seen individually. Discussed the patient with Nursing staff reviewed the chart.~Reviewed interim history and current functioning. Reviewed vital signs,~Labs/ Radiology~and current medications noted below. Continue current treatment with the changes noted in the dictated addendum note Assessment: Vital Signs: Vital Signs Date Time Temp Pulse Resp B/P (MAP) Pulse Ox O2 Delivery O2 Flow Rate FiO2 07/11/17 19:29 77 114/78 07/11/17 15:47 98.1 16 93 07/06/17 15:59 Room Air I&O Intake and Output 07/11/17 07:00 Intake Total 720 ml Balance 720 ml Intake Oral 720 ml # Bowel Movements 1 Current Medications: Meds: Current Medications Acetaminophen (Tylenol) 650 mg PRN Q6HRS PRN PO PAIN / TEMP Last administered on 07/07/17at 16:53; Start 06/22/17 at 22:45 Multi-Ingredient Ointment (Analgesic [place]) 1 kermit PRN QID PRN TP MUSCLE PAIN; Start 06/22/17 at 22:45 Al Hydroxide/Mg Hydroxide (Mylanta Plus Xs) 15 ml PRN AFTMEALHC PRN PO DYSPEPSIA; Start 06/22/17 at 22:45 Magnesium Hydroxide (Milk Of Magnesia) 2,400 mg PRN QHS PRN PO CONSTIPATION; Start 06/22/17 at 22:45 Fluoxetine HCl (PROzac) 20 mg DAILY PO Last administered on 06/23/17at 08:15; Start 06/23/17 at 09:00; Stop 06/23/17 at 19:29; Status DC Sertraline HCl (Zoloft) 50 mg DAILY PO Last administered on 06/23/17at 08:11; Start 06/23/17 at 09:00; Stop 06/23/17 at 19:29; Status DC Trazodone HCl (Desyrel) 100 mg HS PO Last administered on 07/11/17at 19:29; Start 06/23/17 at 21:00 Acetaminophen (Tylenol) 650 mg DAILY PO Last administered on 07/11/17at 07:49; Start 06/23/17 at 09:00 Acetaminophen (Tylenol) 650 mg PRN Q4HRS PRN PO PAIN / TEMP; Start 06/22/17 at 23:00; Status UNV Atorvastatin Calcium (Lipitor) 10 mg QHS PO Last administered on 07/11/17 19:30 ; Start 06/23/17 at 21:00 Bisacodyl (Dulcolax Supp) 10 mg PRN DAILY PRN RC CONSTIPATION; Start 06/22/17 at 23:00 Calcium Carbonate/ Glycine (Oscal) 1,000 mg DAILY PO Last administered on 07:49; Start 06/23/17 at 09:00 Cetirizine HCl (ZyrTEC) 10 mg HS PO Last administered on 07/11/17 19:30; Start 06/23/17 at 21:00 Hydrochlorothiazide (Hydrodiuril) 25 mg DAILY PO Last administered on at 08:11; Start 06/23/17 at 09:00; Stop 06/25/17 at 17:16; Status DC Lisinopril (Prinivil) 20 mg BID PO ; Start 06/23/17 at 09:00; Stop 06/24/17 at 18:04; Status DC Metoprolol Tartrate (Lopressor) 12.5 mg BID PO Last administered on 07/11/17 19 :29; Start 06/23/17 at 09:00 Simvastatin (Zocor) 20 mg HS PO ; Start 06/23/17 at 21:00; Status UNV Vitamin D (Vitamin D3) 2,000 unit DAILY PO Last administered on 07/11/17 07:48 ; Start 06/23/17 at 09:00 Non-Formulary Medication 30 ml PRN Q4HRS PRN PO DYSPEPSIA; Start 06/22/17 at 23 :00; Status UNV Non-Formulary Medication 2,400 mg PRN DAILY PRN PO CONSTIPATION; Start at 23:00; Status UNV Non-Formulary Medication 50 mg DAILY PO ; Start 06/23/17 at 09:00; Status UNV Potassium Chloride (Klor-Con) 10 meq DAILYWBKFT PO Last administered on 07:49; Start 06/23/17 at 08:00 Influenza Virus Vaccine Quadrival (Fluarix Quad [id number] Syringe) 0.5 ml ONCE ONCE VAX IM Last administered on 06/23/17at 09:50; Start 06/23/17 at 09:00; Stop 06/23/17 at 09:01; Status DC Pneumoccal 13-Valent Conj Vacc (Prevnar 13) 0.5 ml ONCE ONCE VAX IM ; Start at 09:00; Stop 06/23/17 at 09:01; Status UNV Pneumococcal Polyvalent Vaccine (Pneumovax 23) 0.5 ml ONCE ONCE VAX IM Last administered on 06/23/17at 09:51; Start 06/23/17 at 09:00; Stop 06/23/17 at 09:01 ; Status DC Duloxetine HCl (Cymbalta) 30 mg DAILY PO Last administered on 06/27/17at 09:59; Start 06/24/17 at 09:00; Stop 06/27/17 at 15:39; Status DC Vitamin D (Vitamin D3) 50,000 unit WEEKLY PO ; Start 06/24/17 at 18:00; Stop at 18:38; Status DC Lisinopril (Prinivil) 20 mg DAILY PO ; Start 06/25/17 at 09:00; Stop 06/25/17 at 17:16; Status DC Vitamin D (Vitamin D3) 50,000 unit WEEKLY PO Last administered on 07/08/17at 07: 57; Start 06/24/17 at 20:00 Sodium Chloride 1,000 ml @ 1,000 mls/hr 1X ONCE IV Last administered on at 16:00; Start 06/25/17 at 16:00; Stop 06/25/17 at 17:00; Status DC Lisinopril (Prinivil) 10 mg DAILY PO Last administered on 07/02/17at 07:40; Start 06/26/17 at 09:00; Stop 07/02/17 at 09:06; Status DC Sodium Chloride 1,000 ml @ 1,000 mls/hr 1X ONCE IV Last administered on at 12:46; Start 06/27/17 at 11:30; Stop 06/27/17 at 12:29; Status DC Magnesium Oxide (Magnesium Oxide) 400 mg BIDACLD PO Last administered on at 17:01; Start 06/27/17 at 11:30 Duloxetine HCl (Cymbalta) 60 mg DAILY PO Last administered on 07/11/17 07:49; Start 06/28/17 at 09:00 Divalproex Sodium (Depakote Er) 500 mg QHS PO Last administered on 06/30/17at 20 :01; Start 06/28/17 at 21:00; Stop 07/01/17 at 19:33; Status DC Divalproex Sodium (Depakote Er) 750 mg QHS PO Last administered on 07/08/17 20: 59; Start 07/01/17 at 21:00; Stop 07/09/17 at 19:55; Status DC Lisinopril (Prinivil) 5 mg DAILY PO Last administered on 07/11/17 07:49; Start 07/03/17 at 09:00 Divalproex Sodium (Depakote Er) 1,000 mg QHS PO Last administered on 07/11/17 19:28; Start 07/09/17 at 21:00 Active Scripts Active Reported Magnesium Oxide 400 Mg Tablet 400 Mg PO BIDACLD Lisinopril 5 Mg Tablet 5 Mg PO DAILY Cymbalta (Duloxetine Hcl) 60 Mg Capsule.dr 60 Mg PO DAILY Depakote Er (Divalproex Sodium) 500 Mg Tab.er.24h 750 Mg PO D3-50 (Cholecalciferol (Vitamin D3)) 50,000 Unit Capsule 50,000 Unit PO QSA Milk Of Magnesia (Magnesium Hydroxide) 2,400 Mg/10 Ml Oral.susp 2,400 Mg PO PRN DAILY PRN Bisacodyl 10 Mg Supp.rect 10 Mg RC PRN DAILY PRN Mag-Al Plus Suspension (Mag Hydrox/Al Hydrox/Simeth) 30 Ml Oral.susp 30 Ml PO PRN Q4HRS PRN Tylenol (Acetaminophen) 325 Mg Tablet 650 Mg PO PRN Q4HRS PRN Metoprolol Succinate ( Xl ) (Metoprolol Succinate) 25 Mg Tab.er.24h 12.5 Mg PO BID Lisinopril 20 Mg Tablet 20 Mg PO BID Vitamin D-3 (Cholecalciferol (Vitamin D3)) 2,000 Unit Tablet 2,000 Unit PO DAILY Potassium Chloride 10 Meq Capsule.er 10 Meq PO DAILY Oyster Shell Calcium (Calcium Carbonate) 500 Mg Tablet 1,000 Mg PO DAILY Myrbetriq (Mirabegron) 50 Mg Tab.er.24h 50 Mg PO DAILY Hydrochlorothiazide Tablet (Hydrochlorothiazide) 25 Mg Tablet 25 Mg PO DAILY Atorvastatin Calcium 10 Mg Tablet 10 Mg PO QHS Zyrtec (Cetirizine Hcl) 10 Mg Tablet 10 Mg PO HS Simvastatin 20 Mg Tablet 20 Mg PO HS Trazodone Hcl 100 Mg Tablet 100 Mg PO HS Zoloft (Sertraline Hcl) 50 Mg Tablet 50 Mg PO DAILY Prozac (Fluoxetine Hcl) 20 Mg Capsule 20 Mg PO DAILY Tylenol (Acetaminophen) 325 Mg Tablet 650 Mg PO DAILY I have reviewed the current psychotropics carefully including drug interactions. Risk benefit ratio favors no change other than as noted in my dictated progress note. Diagnosis: Problems: (1) Depression (2) Benign essential hypertension (3) Anxiety disorder (4) Major depressive disorder, recurrent episode (5) Asperger's disorder NADIRA ELLIS MD Jul 11, 2017 20:12
--- NOTE | 2017-07-11 22:24 | PN ---
DATE: 07/10/2017 PSYCHIATRIC PROGRESS NOTE This is late entry 07/10/2017 covers elements not covered in my initial note 07/10/2017 SUBJECTIVE: Met with the patient in the evening of 07/10/2017. The patient remains somewhat withdrawn, but less agitated, less depressed. REVIEW OF SYSTEMS: Ambulation impaired, in wheelchair. No CV, , pulmonary, eye system symptoms on review. MENTAL STATUS EXAM: Oriented to himself and situation. Speech is coherent, often responses monosyllabic. Eye contact is poor, abstraction fair, computation impaired, language function intact. Mood and affect still depressed, but better than before. LABORATORY DATA: Reviewed. IMPRESSION: Major depressive disorder, in partial remission. PLAN: Continue current psychotropics, valproic acid level is 41, transition to a lower level of care in the next day or two. MAN Rubi ELLIS MD DR: CHRISTIANO/marilyn JOB#: [id number] / [id number]
[2017-07-12 06:08] VITALS: BP 140/77
[2017-07-12] MEDS: DULoxetine HCL 30 MG CAPSULE.DR PO SCH (08:48)
[2017-07-12] MEDS: LISINOPRIL 5 MG TABLET. PO SCH (08:48)
[2017-07-12] MEDS: MIRABEGRON 25 MG TAB.ER.24H PO SCH (08:48)
[2017-07-12] MEDS: CHOLECALCIFEROL (VITAMIN D3) 1,000 UNIT TABLET PO SCH (08:48)
[2017-07-12] MEDS: MAGNESIUM OXIDE 400 MG TABLET PO SCH ×2 (08:48→16:30)
[2017-07-12] MEDS: ACETAMINOPHEN 325 MG TABLET PO SCH (08:49)
[2017-07-12] MEDS: CALCIUM CARBONATE 500 MG TABLET PO SCH (08:49)
[2017-07-12] MEDS: METOPROLOL TART IMMED RELEASE 25 MG TABLET PO SCH ×2 (08:49→19:39)
[2017-07-12] MEDS: POTASSIUM CHLORIDE 10 MEQ TABLET.ER. PO SCH (08:49)
[2017-07-12 09:15] LABS: HEMATOCRIT 37.6 % (39.0-53.0); HEMOGLOBIN 12.5 g/dL (13.0-17.5); RED BLOOD COUNT 4.31 x10^6/uL (4.30-5.70); RED CELL DISTRIBUTION WIDTH 14.8 % (11.5-14.5)
[2017-07-12 09:17] LABS: ALBUMIN 2.9 g/dL (3.4-5.0); ALBUMIN/GLOBULIN RATIO 0.7 (1.0-1.7); ALK PHOS 57 U/L (46-116); ALT (SGPT) 20 U/L (16-63); ANION GAP 7 (6-14); AST (SGOT) 13 U/L (15-37); BLOOD UREA NITROGEN 20 mg/dL (8-26); BUN/CREATININE RATIO 18 (6-20); CALCIUM 8.8 mg/dL (8.5-10.1); CARBON DIOXIDE 32 mmol/L (21-32); CHLORIDE 100 mmol/L (98-107); CREATININE 1.1 mg/dL (0.7-1.3); GFR 65.8; GLUCOSE 147 mg/dL (70-99); POTASSIUM 4.2 mmol/L (3.5-5.1); SODIUM 139 mmol/L (136-145); TOTAL BILIRUBIN 0.3 mg/dL (0.2-1.0); TOTAL PROTEIN 6.8 g/dL (6.4-8.2)
[2017-07-12 09:22] LABS: VAL ACID 66 mcg/mL (50-100)
[2017-07-12 16:10] VITALS: BP 104/66
--- NOTE | 2017-07-12 19:12 | PDOC ---
Exam Note: Brian Note: Please also refer to the separate dictated note~for this date of service dictated separately.~Patient seen individually. Discussed the patient with Nursing staff reviewed the chart.~Reviewed interim history and current functioning. Reviewed vital signs,~Labs/ Radiology~and current medications noted below. Continue current treatment with the changes noted in the dictated addendum note Assessment: Vital Signs: Vital Signs Date Time Temp Pulse Resp B/P (MAP) Pulse Ox O2 Delivery O2 Flow Rate FiO2 07/12/17 16:10 97.9 71 18 104/66 (79) 97 07/06/17 15:59 Room Air I&O Intake and Output 07/12/17 07:00 Intake Total 840 ml Balance 840 ml Intake Oral 840 ml Labs: Laboratory Tests Test 07/12/17 08:55 White Blood Count 7.0 x10^3/uL (4.0-11.0) Red Blood Count 4.31 x10^6/uL (4.30-5.70) Hemoglobin 12.5 g/dL (13.0-17.5) L Hematocrit 37.6 % (39.0-53.0) L Mean Corpuscular Volume 87 fL (79-100) Mean Corpuscular Hemoglobin 29 pg (25-35) Mean Corpuscular Hemoglobin Concent 33 g/dL (31-37) Red Cell Distribution Width 14.8 % (11.5-14.5) H Platelet Count 230 x10^3/uL (140-400) Sodium Level 139 mmol/L (136-145) Potassium Level 4.2 mmol/L (3.5-5.1) Chloride Level 100 mmol/L (98-107) Carbon Dioxide Level 32 mmol/L (21-32) Anion Gap 7 (6-14) Blood Urea Nitrogen 20 mg/dL (8-26) Creatinine 1.1 mg/dL (0.7-1.3) Estimated GFR (Cockcroft-Gault) 65.8 BUN/Creatinine Ratio 18 (6-20) Glucose Level 147 mg/dL (70-99) H Calcium Level 8.8 mg/dL (8.5-10.1) Total Bilirubin 0.3 mg/dL (0.2-1.0) Aspartate Amino Transferase (AST) 13 U/L (15-37) L Alanine Aminotransferase (ALT) 20 U/L (16-63) Alkaline Phosphatase 57 U/L (46-116) Total Protein 6.8 g/dL (6.4-8.2) Albumin 2.9 g/dL (3.4-5.0) L Albumin/Globulin Ratio 0.7 (1.0-1.7) L Valproic Acid Level 66 mcg/mL (50-100) Valproic Acid Last Dose Date 07/11/17 Valproic Acid Last Dose Time 2100 Current Medications: Meds: Current Medications Acetaminophen (Tylenol) 650 mg PRN Q6HRS PRN PO PAIN / TEMP Last administered on 07/07/17at 16:53; Start 06/22/17 at 22:45 Multi-Ingredient Ointment (Analgesic [place]) 1 kermit PRN QID PRN TP MUSCLE PAIN; Start 06/22/17 at 22:45 Al Hydroxide/Mg Hydroxide (Mylanta Plus Xs) 15 ml PRN AFTMEALHC PRN PO DYSPEPSIA; Start 06/22/17 at 22:45 Magnesium Hydroxide (Milk Of Magnesia) 2,400 mg PRN QHS PRN PO CONSTIPATION; Start 06/22/17 at 22:45 Fluoxetine HCl (PROzac) 20 mg DAILY PO Last administered on 06/23/17at 08:15; Start 06/23/17 at 09:00; Stop 06/23/17 at 19:29; Status DC Sertraline HCl (Zoloft) 50 mg DAILY PO Last administered on 06/23/17at 08:11; Start 06/23/17 at 09:00; Stop 06/23/17 at 19:29; Status DC Trazodone HCl (Desyrel) 100 mg HS PO Last administered on 07/11/17at 19:29; Start 06/23/17 at 21:00 Acetaminophen (Tylenol) 650 mg DAILY PO Last administered on 07/12/17at 08:49; Start 06/23/17 at 09:00 Acetaminophen (Tylenol) 650 mg PRN Q4HRS PRN PO PAIN / TEMP; Start 06/22/17 at 23:00; Status UNV Atorvastatin Calcium (Lipitor) 10 mg QHS PO Last administered on 07/11/17at 19:30 ; Start 06/23/17 at 21:00 Bisacodyl (Dulcolax Supp) 10 mg PRN DAILY PRN RC CONSTIPATION; Start 06/22/17 at 23:00 Calcium Carbonate/ Glycine (Oscal) 1,000 mg DAILY PO Last administered on at 08:49; Start 06/23/17 at 09:00 Cetirizine HCl (ZyrTEC) 10 mg HS PO Last administered on 07/11/17at 19:30; Start 06/23/17 at 21:00 Hydrochlorothiazide (Hydrodiuril) 25 mg DAILY PO Last administered on at 08:11; Start 06/23/17 at 09:00; Stop 06/25/17 at 17:16; Status DC Lisinopril (Prinivil) 20 mg BID PO ; Start 06/23/17 at 09:00; Stop 06/24/17 at 18:04; Status DC Metoprolol Tartrate (Lopressor) 12.5 mg BID PO Last administered on 07/12/17at 08 :49; Start 06/23/17 at 09:00 Simvastatin (Zocor) 20 mg HS PO ; Start 06/23/17 at 21:00; Status UNV Vitamin D (Vitamin D3) 2,000 unit DAILY PO Last administered on 07/12/17at 08:48 ; Start 06/23/17 at 09:00 Non-Formulary Medication 30 ml PRN Q4HRS PRN PO DYSPEPSIA; Start 06/22/17 at 23 :00; Status UNV Non-Formulary Medication 2,400 mg PRN DAILY PRN PO CONSTIPATION; Start at 23:00; Status UNV Non-Formulary Medication 50 mg DAILY PO ; Start 06/23/17 at 09:00; Status UNV Potassium Chloride (Klor-Con) 10 meq DAILYWBKFT PO Last administered on at 08:49; Start 06/23/17 at 08:00 Influenza Virus Vaccine Quadrival (Fluarix Quad [id number] Syringe) 0.5 ml ONCE ONCE VAX IM Last administered on 06/23/17at 09:50; Start 06/23/17 at 09:00; Stop 06/23/17 at 09:01; Status DC Pneumoccal 13-Valent Conj Vacc (Prevnar 13) 0.5 ml ONCE ONCE VAX IM ; Start at 09:00; Stop 06/23/17 at 09:01; Status UNV Pneumococcal Polyvalent Vaccine (Pneumovax 23) 0.5 ml ONCE ONCE VAX IM Last administered on 06/23/17at 09:51; Start 06/23/17 at 09:00; Stop 06/23/17 at 09:01 ; Status DC Duloxetine HCl (Cymbalta) 30 mg DAILY PO Last administered on 06/27/17at 09:59; Start 06/24/17 at 09:00; Stop 06/27/17 at 15:39; Status DC Vitamin D (Vitamin D3) 50,000 unit WEEKLY PO ; Start 06/24/17 at 18:00; Stop at 18:38; Status DC Lisinopril (Prinivil) 20 mg DAILY PO ; Start 06/25/17 at 09:00; Stop 06/25/17 at 17:16; Status DC Vitamin D (Vitamin D3) 50,000 unit WEEKLY PO Last administered on 07/08/17at 07: 57; Start 06/24/17 at 20:00 Sodium Chloride 1,000 ml @ 1,000 mls/hr 1X ONCE IV Last administered on at 16:00; Start 06/25/17 at 16:00; Stop 06/25/17 at 17:00; Status DC Lisinopril (Prinivil) 10 mg DAILY PO Last administered on 07/02/17at 07:40; Start 06/26/17 at 09:00; Stop 07/02/17 at 09:06; Status DC Sodium Chloride 1,000 ml @ 1,000 mls/hr 1X ONCE IV Last administered on at 12:46; Start 06/27/17 at 11:30; Stop 06/27/17 at 12:29; Status DC Magnesium Oxide (Magnesium Oxide) 400 mg BIDACLD PO Last administered on at 16:30; Start 06/27/17 at 11:30 Duloxetine HCl (Cymbalta) 60 mg DAILY PO Last administered on 07/12/17at 08:48; Start 06/28/17 at 09:00 Divalproex Sodium (Depakote Er) 500 mg QHS PO Last administered on 06/30/17at 20 :01; Start 06/28/17 at 21:00; Stop 07/01/17 at 19:33; Status DC Divalproex Sodium (Depakote Er) 750 mg QHS PO Last administered on 07/08/17at 20: 59; Start 07/01/17 at 21:00; Stop 07/09/17 at 19:55; Status DC Lisinopril (Prinivil) 5 mg DAILY PO Last administered on 07/12/17at 08:48; Start 07/03/17 at 09:00 Divalproex Sodium (Depakote Er) 1,000 mg QHS PO Last administered on 07/11/17at 19:28; Start 07/09/17 at 21:00 Active Scripts Active Reported Magnesium Oxide 400 Mg Tablet 400 Mg PO BIDACLD Lisinopril 5 Mg Tablet 5 Mg PO DAILY Cymbalta (Duloxetine Hcl) 60 Mg Capsule.dr 60 Mg PO DAILY Depakote Er (Divalproex Sodium) 500 Mg Tab.er.24h 750 Mg PO D3-50 (Cholecalciferol (Vitamin D3)) 50,000 Unit Capsule 50,000 Unit PO QSA Milk Of Magnesia (Magnesium Hydroxide) 2,400 Mg/10 Ml Oral.susp 2,400 Mg PO PRN DAILY PRN Bisacodyl 10 Mg Supp.rect 10 Mg RC PRN DAILY PRN Mag-Al Plus Suspension (Mag Hydrox/Al Hydrox/Simeth) 30 Ml Oral.susp 30 Ml PO PRN Q4HRS PRN Tylenol (Acetaminophen) 325 Mg Tablet 650 Mg PO PRN Q4HRS PRN Metoprolol Succinate ( Xl ) (Metoprolol Succinate) 25 Mg Tab.er.24h 12.5 Mg PO BID Lisinopril 20 Mg Tablet 20 Mg PO BID Vitamin D-3 (Cholecalciferol (Vitamin D3)) 2,000 Unit Tablet 2,000 Unit PO DAILY Potassium Chloride 10 Meq Capsule.er 10 Meq PO DAILY Oyster Shell Calcium (Calcium Carbonate) 500 Mg Tablet 1,000 Mg PO DAILY Myrbetriq (Mirabegron) 50 Mg Tab.er.24h 50 Mg PO DAILY Hydrochlorothiazide Tablet (Hydrochlorothiazide) 25 Mg Tablet 25 Mg PO DAILY Atorvastatin Calcium 10 Mg Tablet 10 Mg PO QHS Zyrtec (Cetirizine Hcl) 10 Mg Tablet 10 Mg PO HS Simvastatin 20 Mg Tablet 20 Mg PO HS Trazodone Hcl 100 Mg Tablet 100 Mg PO HS Zoloft (Sertraline Hcl) 50 Mg Tablet 50 Mg PO DAILY Prozac (Fluoxetine Hcl) 20 Mg Capsule 20 Mg PO DAILY Tylenol (Acetaminophen) 325 Mg Tablet 650 Mg PO DAILY I have reviewed the current psychotropics carefully including drug interactions. Risk benefit ratio favors no change other than as noted in my dictated progress note. Diagnosis: Problems: (1) Depression (2) Benign essential hypertension (3) Anxiety disorder (4) Major depressive disorder, recurrent episode (5) Asperger's disorder NADIRA ELLIS MD Jul 12, 2017 19:12
[2017-07-12] MEDS: ATORVASTATIN CALCIUM 10 MG TABLET. PO SCH (19:37)
[2017-07-12] MEDS: CETIRIZINE HCL 10 MG TABLET PO SCH (19:38)
[2017-07-12] MEDS: DIVALPROEX ER 500 MG TAB.ER.24H PO SCH (19:38)
[2017-07-12] MEDS: traZODone 100 MG TABLET. PO SCH (19:38)
--- NOTE | 2017-07-12 22:07 | PN ---
DATE: 07/11/2017 This is a late entry for 07/11/2017 and covers elements not covered in my initial note of 07/11/2017. I met with the patient the evening of 07/11/2017. Overall, the patient has been withdrawn, to his room drowsy, calm, compliant. No suicidal ideation noted. Met with him at some length in his room. REVIEW OF SYSTEMS: Ambulation impaired, in wheelchair. No CV, , pulmonary, eye, ENT system symptoms on review. MENTAL STATUS EXAM: Eye contact is poor. Social skills poor. Insight limited. Judgment marginal, language function intact, reasonably oriented. Mood and affect still dysphoric, but improved. No suicidal or homicidal ideation. LABORATORY DATA: Reviewed. IMPRESSION: Major depressive disorder, autistic spectrum disorder. Rest unchanged. PLAN: Continue psychotropics as mentioned in my initial note. Transition to a lower level of care in the next day or so. NADIRA ELLIS MD DR: CHRISTIANO/marilyn JOB#: [id number] / [id number]
[2017-07-13 05:53] VITALS: BP 109/60
[2017-07-13] MEDS: POTASSIUM CHLORIDE 10 MEQ TABLET.ER. PO SCH (08:21)
[2017-07-13] MEDS: METOPROLOL TART IMMED RELEASE 25 MG TABLET PO SCH (08:22)
[2017-07-13] MEDS: CHOLECALCIFEROL (VITAMIN D3) 1,000 UNIT TABLET PO SCH (08:23)
[2017-07-13] MEDS: ACETAMINOPHEN 325 MG TABLET PO SCH (08:23)
[2017-07-13] MEDS: CALCIUM CARBONATE 500 MG TABLET PO SCH (08:23)
[2017-07-13] MEDS: DULoxetine HCL 30 MG CAPSULE.DR PO SCH (08:23)
[2017-07-13] MEDS: MIRABEGRON 25 MG TAB.ER.24H PO SCH (08:23)
[2017-07-13] MEDS: LISINOPRIL 5 MG TABLET. PO SCH (08:24)
[2017-07-13] MEDS: MAGNESIUM OXIDE 400 MG TABLET PO SCH (12:40)
[2017-07-13 15:19] VITALS: BP 110/60
--- NOTE | 2017-07-13 20:12 | PDOC ---
Exam Note: Brian Note: Please also refer to the separate dictated note~for this date of service dictated separately.~Patient seen individually. Discussed the patient with Nursing staff reviewed the chart.~Reviewed interim history and current functioning. Reviewed vital signs,~Labs/ Radiology~and current medications noted below. Continue current treatment with the changes noted in the dictated addendum note Assessment: Vital Signs: Vital Signs Date Time Temp Pulse Resp B/P (MAP) Pulse Ox O2 Delivery O2 Flow Rate FiO2 07/13/17 15:19 98.5 84 16 110/60 (77) 95 I&O Intake and Output 07/13/17 07:00 Intake Total 480 ml Balance 480 ml Intake Oral 480 ml # Bowel Movements 1 Current Medications: Meds: Current Medications Acetaminophen (Tylenol) 650 mg PRN Q6HRS PRN PO PAIN / TEMP Last administered on 07/07/17at 16:53; Start 06/22/17 at 22:45; Stop 07/13/17 at 16:59; Status DC Multi-Ingredient Ointment (Analgesic Finley) 1 kermit PRN QID PRN TP MUSCLE PAIN; Start 06/22/17 at 22:45; Stop 07/13/17 at 16:59; Status DC Al Hydroxide/Mg Hydroxide (Mylanta Plus Xs) 15 ml PRN AFTMEALHC PRN PO DYSPEPSIA; Start 06/22/17 at 22:45; Stop 07/13/17 at 16:59; Status DC Magnesium Hydroxide (Milk Of Magnesia) 2,400 mg PRN QHS PRN PO CONSTIPATION; Start 06/22/17 at 22:45; Stop 07/13/17 at 16:59; Status DC Fluoxetine HCl (PROzac) 20 mg DAILY PO Last administered on 06/23/17at 08:15; Start 06/23/17 at 09:00; Stop 06/23/17 at 19:29; Status DC Sertraline HCl (Zoloft) 50 mg DAILY PO Last administered on 06/23/17at 08:11; Start 06/23/17 at 09:00; Stop 06/23/17 at 19:29; Status DC Trazodone HCl (Desyrel) 100 mg HS PO Last administered on 07/12/17at 19:38; Start 06/23/17 at 21:00; Stop 07/13/17 at 16:59; Status DC Acetaminophen (Tylenol) 650 mg DAILY PO Last administered on 07/13/17at 08:23; Start 06/23/17 at 09:00; Stop 07/13/17 at 16:59; Status DC Acetaminophen (Tylenol) 650 mg PRN Q4HRS PRN PO PAIN / TEMP; Start 06/22/17 at 23:00; Status UNV Atorvastatin Calcium (Lipitor) 10 mg QHS PO Last administered on 07/12/17at 19:37 ; Start 06/23/17 at 21:00; Stop 07/13/17 at 16:59; Status DC Bisacodyl (Dulcolax Supp) 10 mg PRN DAILY PRN RC CONSTIPATION; Start 06/22/17 at 23:00; Stop 07/13/17 at 16:59; Status DC Calcium Carbonate/ Glycine (Oscal) 1,000 mg DAILY PO Last administered on at 08:23; Start 06/23/17 at 09:00; Stop 07/13/17 at 16:59; Status DC Cetirizine HCl (ZyrTEC) 10 mg HS PO Last administered on 07/12/17at 19:38; Start 06/23/17 at 21:00; Stop 07/13/17 at 16:59; Status DC Hydrochlorothiazide (Hydrodiuril) 25 mg DAILY PO Last administered on at 08:11; Start 06/23/17 at 09:00; Stop 06/25/17 at 17:16; Status DC Lisinopril (Prinivil) 20 mg BID PO ; Start 06/23/17 at 09:00; Stop 06/24/17 at 18:04; Status DC Metoprolol Tartrate (Lopressor) 12.5 mg BID PO Last administered on 07/13/17at 08 :22; Start 06/23/17 at 09:00; Stop 07/13/17 at 16:59; Status DC Simvastatin (Zocor) 20 mg HS PO ; Start 06/23/17 at 21:00; Status UNV Vitamin D (Vitamin D3) 2,000 unit DAILY PO Last administered on 07/13/17at 08:23 ; Start 06/23/17 at 09:00; Stop 07/13/17 at 16:59; Status DC Non-Formulary Medication 30 ml PRN Q4HRS PRN PO DYSPEPSIA; Start 06/22/17 at 23 :00; Status UNV Non-Formulary Medication 2,400 mg PRN DAILY PRN PO CONSTIPATION; Start at 23:00; Status UNV Non-Formulary Medication 50 mg DAILY PO Last administered on 07/13/17at 08:23; Start 06/23/17 at 09:00; Stop 07/13/17 at 16:59; Status UNV Potassium Chloride (Klor-Con) 10 meq DAILYWBKFT PO Last administered on at 08:21; Start 06/23/17 at 08:00; Stop 07/13/17 at 16:59; Status DC Influenza Virus Vaccine Quadrival (Fluarix Quad [id number] Syringe) 0.5 ml ONCE ONCE VAX IM Last administered on 06/23/17at 09:50; Start 06/23/17 at 09:00; Stop 06/23/17 at 09:01; Status DC Pneumoccal 13-Valent Conj Vacc (Prevnar 13) 0.5 ml ONCE ONCE VAX IM ; Start at 09:00; Stop 06/23/17 at 09:01; Status UNV Pneumococcal Polyvalent Vaccine (Pneumovax 23) 0.5 ml ONCE ONCE VAX IM Last administered on 06/23/17at 09:51; Start 06/23/17 at 09:00; Stop 06/23/17 at 09:01 ; Status DC Duloxetine HCl (Cymbalta) 30 mg DAILY PO Last administered on 06/27/17at 09:59; Start 06/24/17 at 09:00; Stop 06/27/17 at 15:39; Status DC Vitamin D (Vitamin D3) 50,000 unit WEEKLY PO ; Start 06/24/17 at 18:00; Stop at 18:38; Status DC Lisinopril (Prinivil) 20 mg DAILY PO ; Start 06/25/17 at 09:00; Stop 06/25/17 at 17:16; Status DC Vitamin D (Vitamin D3) 50,000 unit WEEKLY PO Last administered on 07/08/17at 07: 57; Start 06/24/17 at 20:00; Stop 07/13/17 at 16:59; Status DC Sodium Chloride 1,000 ml @ 1,000 mls/hr 1X ONCE IV Last administered on at 16:00; Start 06/25/17 at 16:00; Stop 06/25/17 at 17:00; Status DC Lisinopril (Prinivil) 10 mg DAILY PO Last administered on 07/02/17at 07:40; Start 06/26/17 at 09:00; Stop 07/02/17 at 09:06; Status DC Sodium Chloride 1,000 ml @ 1,000 mls/hr 1X ONCE IV Last administered on at 12:46; Start 06/27/17 at 11:30; Stop 06/27/17 at 12:29; Status DC Magnesium Oxide (Magnesium Oxide) 400 mg BIDACLD PO Last administered on at 12:40; Start 06/27/17 at 11:30; Stop 07/13/17 at 16:59; Status DC Duloxetine HCl (Cymbalta) 60 mg DAILY PO Last administered on 07/13/17at 08:23; Start 06/28/17 at 09:00; Stop 07/13/17 at 16:59; Status DC Divalproex Sodium (Depakote Er) 500 mg QHS PO Last administered on 06/30/17at 20 :01; Start 06/28/17 at 21:00; Stop 07/01/17 at 19:33; Status DC Divalproex Sodium (Depakote Er) 750 mg QHS PO Last administered on 07/08/17at 20: 59; Start 07/01/17 at 21:00; Stop 07/09/17 at 19:55; Status DC Lisinopril (Prinivil) 5 mg DAILY PO Last administered on 07/13/17at 08:24; Start 07/03/17 at 09:00; Stop 07/13/17 at 16:59; Status DC Divalproex Sodium (Depakote Er) 1,000 mg QHS PO Last administered on 07/12/17at 19:38; Start 07/09/17 at 21:00; Stop 07/13/17 at 16:59; Status DC Active Scripts Active Reported Magnesium Oxide 400 Mg Tablet 400 Mg PO BIDACLD Lisinopril 5 Mg Tablet 5 Mg PO DAILY Cymbalta (Duloxetine Hcl) 60 Mg Capsule.dr 60 Mg PO DAILY Depakote Er (Divalproex Sodium) 500 Mg Tab.er.24h 1,000 Mg PO D3-50 (Cholecalciferol (Vitamin D3)) 50,000 Unit Capsule 50,000 Unit PO QSA Milk Of Magnesia (Magnesium Hydroxide) 2,400 Mg/10 Ml Oral.susp 2,400 Mg PO PRN DAILY PRN Bisacodyl 10 Mg Supp.rect 10 Mg RC PRN DAILY PRN Mag-Al Plus Suspension (Mag Hydrox/Al Hydrox/Simeth) 30 Ml Oral.susp 15 Ml PO PRN Q4HRS PRN Tylenol (Acetaminophen) 325 Mg Tablet 650 Mg PO PRN Q4HRS PRN Metoprolol Succinate ( Xl ) (Metoprolol Succinate) 25 Mg Tab.er.24h 12.5 Mg PO BID Potassium Chloride 10 Meq Capsule.er 10 Meq PO DAILY Oyster Shell Calcium (Calcium Carbonate) 500 Mg Tablet 1,000 Mg PO DAILY Myrbetriq (Mirabegron) 50 Mg Tab.er.24h 50 Mg PO DAILY Atorvastatin Calcium 10 Mg Tablet 10 Mg PO QHS Zyrtec (Cetirizine Hcl) 10 Mg Tablet 10 Mg PO HS Trazodone Hcl 100 Mg Tablet 100 Mg PO HS Tylenol (Acetaminophen) 325 Mg Tablet 650 Mg PO DAILY I have reviewed the current psychotropics carefully including drug interactions. Risk benefit ratio favors no change other than as noted in my dictated progress note. Diagnosis: Problems: (1) Depression (2) Benign essential hypertension (3) Anxiety disorder (4) Major depressive disorder, recurrent episode (5) Asperger's disorder NADIRA ELILS MD Jul 13, 2017 20:12
--- NOTE | 2017-07-14 20:35 | DS ---
DATE OF DISCHARGE: 07/13/2017 This is a late entry for 07/13/2017, covers elements not covered in my initial note of 07/13/2017. REASON FOR ADMISSION: Please refer to the admission history for details. Briefly, the patient is a 71-year-old male, referred to us from [facility] in [facility] after he threatened to choke himself or cut his throat, was suicidal, calling out, tearful, refusing cares and meals, had 4-pound weight loss. He had failed outpatient psychiatric interventions. SIGNIFICANT FINDINGS AND CLINICAL COURSE: Following admission, the patient was seen daily individually by myself, followed medically per Dr. Moody/Dr Lee. The patient remained withdrawn, depressed, voiced vague suicidal ideation. Adjustments were made in the psychotropics. He seemed to do better on a combination of Cymbalta 60 mg a day, trazodone 100 mg at bedtime, Depakote ER 1000 mg at bedtime. Additional history was reflective of his diagnosis of autistic spectrum disorder. Prior to discharge 07/13/2016, ambulation impaired, in wheelchair. No CV, , pulmonary, eye, ENT system symptoms on review. MENTAL STATUS EXAMINATION: Oriented to himself and situation. Speech coherent. Eye contact poor, abstraction fair, computation impaired, language function intact. Mood and affect remain somewhat depressed, but no suicidal ideation. He was more verbally interactive. CONDITION AT DISCHARGE: Improved. FINAL DIAGNOSES: Major depressive disorder, recurrent with psychotic features, in partial remission; autistic spectrum disorder; anxiety disorder, unspecified; bipolar 1 disorder, mixed versus depressed, in partial remission. Rest unchanged from admission. DISCHARGE MEDICATIONS: Please refer to the MRAD. DISCHARGE INSTRUCTIONS: Outpatient psychiatric and medical followup at the [facility]. Time for discharge day management greater than 30 minutes. NADIRA ELLIS MD DR: CHRISTIANO/marilyn JOB#: [id number] / [id number]
--- NOTE | 2017-07-14 23:56 | PN ---
DATE: 07/12/2017 This is a late entry for 07/12/2017 and covers elements not covered in my initial note of 07/12/2017. I met with the patient the evening of 07/12/2017. The patient remains withdrawn, met with him at length in his room. Denies suicidal ideation, not been aggressive. REVIEW OF SYSTEMS: Ambulation impaired, in wheelchair. No CV, , pulmonary, eye system symptoms on review. MENTAL STATUS EXAM: Oriented to situation. Eye contact is poor. Speech, often responses monosyllabic. Abstraction fair, computation impaired, language function intact. Mood and affect withdrawn, but improved. No suicidal ideation. LABORATORY DATA: Reviewed. IMPRESSION: Major depressive disorder, autistic spectrum disorder. PLAN: Continue psychotropics as mentioned in my initial note. MAN Rubi ELLIS MD DR: CHRISTIANO/marilyn JOB#: [id number] / [id number]
== END 2017-07-13 16:30 | disposition home or self-care (01) | DRG 885 ==
LOC: ER 19:30 → GEROPSY 21:24
PROVIDERS: ADMIT Psychiatry & Neurology Psychiatry; ATTEND Psychiatry & Neurology Psychiatry
DX: F31.5 Bipolar disorder, current episode depressed, severe, with psychotic features (principal); F03.90 Unspecified dementia, unspecified severity, without behavioral disturbance, psychotic disturbance, mood disturbance, and anxiety; E86.0 Dehydration; F84.5 Asperger's syndrome; E78.5 Hyperlipidemia, unspecified; E66.9 Obesity, unspecified; F43.23 Adjustment disorder with mixed anxiety and depressed mood; I10 Essential (primary) hypertension; M19.90 Unspecified osteoarthritis, unspecified site; G47.00 Insomnia, unspecified; Z66 Do not resuscitate; N28.9 Disorder of kidney and ureter, unspecified; K59.00 Constipation, unspecified; R63.4 Abnormal weight loss; N32.81 Overactive bladder; Z85.46 Personal history of malignant neoplasm of prostate; Z68.32 Body mass index [BMI] 32.0-32.9, adult; Z90.49 Acquired absence of other specified parts of digestive tract
CPT/HCPCS: 36415; 71045; 80048; 80053; 80061; 80076; 80164; 80307; 81001; 82306; 82607; 83036; 83540; 83550; 83735; 83880; 84436; 84443; 84480; 84484; 85025; 85027; 86593; 90686; 90732; 93005; 97530; 99285-25; G0479; J7030